=== PATIENT | male | born 1970 ===

== ENCOUNTER 2020-06-15 07:03 | Outpatient (REF) | payer OTHER, SELFPAY | END 2020-06-15 07:04 | disposition home or self-care (01) | LOC: HO.LAB 07:03 | PROVIDERS: Visit Provider Internal Medicine | DX: Z20.828 Contact with and (suspected) exposure to other viral communicable diseases (principal) | CPT/HCPCS: C9803; U0003 ==

== ENCOUNTER 2020-09-29 15:31 | Outpatient (REF) | payer OTHER, SELFPAY | END 2020-09-29 15:32 | disposition home or self-care (01) | LOC: HO.LAB 15:31 | PROVIDERS: Visit Provider Internal Medicine | DX: Z20.822 Contact with and (suspected) exposure to COVID-19 (principal) | CPT/HCPCS: 36415; C9803; U0003; U0005 ==

== ENCOUNTER 2020-11-01 15:24 | Outpatient (REF) | payer OTHER, SELFPAY ==
--- NOTE | ~2020-11-01 | XR_ITS ---
EXAMINATION: XR SHOULDER , LEFT CLINICAL INFORMATION: Pain COMPARISON: None available at the time of this dictation. TECHNIQUE: AP external rotation, Grashey, scapular Y, and axillary views of the shoulder. FINDINGS: BONES: There is no fracture or dislocation, no osteolytic or osteoblastic lesion. JOINTS: Glenohumeral joint is properly positioned. There is mild degenerative osteoarthritis of the acromioclavicular joint. SOFT TISSUE AND INCLUDED LUNG: Normal. XR/XR shoulder LT min 2V IMPRESSION: Mild degenerative osteoarthritis. No radiographic evidence of acute fracture.
== END 2020-11-01 15:25 | disposition home or self-care (01) ==
LOC: HO.HOSX 15:24
PROVIDERS: Visit Provider Orthopaedic Surgery
DX: M25.512 Pain in left shoulder (principal)
CPT/HCPCS: 73030

== ENCOUNTER → 2020-11-02 09:50 | Outpatient (BNVA) | payer OTHER, SELFPAY | PROVIDERS: PCP Internal Medicine Medical Oncology; Visit Provider Orthopaedic Surgery | DX: M25.519 Pain in unspecified shoulder (principal) ==

== ENCOUNTER 2020-12-15 06:58 | Outpatient (REF) | payer OTHER, SELFPAY ==
[2020-12-15 08:56] LABS: Glucose Fasting 96 mg/dL (60-99)
[2020-12-15 09:36] LABS: Vitamin B12 413 pg/mL (200-900)
[2020-12-15 09:43] LABS: Erythrocyte Sedimentation Rate 7 MM/HR (0-15)
[2020-12-16 05:26] LABS: Lyme Abs Screen <0.90 index
[2020-12-16 08:20] LABS: Syphilis Screen Nonreactive (Nonreactive)
[2020-12-16 09:46] LABS: Myeloperoxidase Antibody <1.0 AI; Proteinase 3 PR3 Antibodies <1.0 AI
[2020-12-16 13:56] LABS: Anti Nuclear Antibody Screen NEGATIVE (NEGATIVE); Ceruloplasmin 25 mg/dL (18-36)
== END 2020-12-15 06:59 | disposition home or self-care (01) ==
LOC: HO.LAB 06:58
PROVIDERS: PCP Internal Medicine Medical Oncology; Visit Provider Psychiatry & Neurology Neurology
DX: R20.0 Anesthesia of skin (principal); R53.1 Weakness
CPT/HCPCS: 36415; 82390; 82607; 82947; 85652; 86021; 86038; 86039; 86617; 86618; 86780

== ENCOUNTER 2020-12-26 15:31 | Emergency (ER) | payer OTHER, SELFPAY ==
--- NOTE | ~2020-12-26 | XR_ITS ---
EXAMINATION: XR ANKLE, RIGHT CLINICAL INFORMATION: Pain COMPARISON: None TECHNIQUE: AP, lateral, and mortise views of the right ankle. FINDINGS: There is an avulsion fracture of the lateral malleolus. No other fracture is seen. The ankle mortise is normal. There is lateral soft tissue swelling. XR/XR ankle RT 2V IMPRESSION: Avulsion fracture of the lateral malleolus.
[2020-12-26 16:07] VITALS: BP 166/103; PULSE 106; RESP 16; TEMP 35.7; O2SAT 87; BMI 32.5
--- NOTE | 2020-12-26 17:37 | ED.LOWEXIN ---
HPI - Extremity Injury (Lower) General Chief Complaint: Extremity Injury, Lower <CAROLYN Chilel - Last Filed: 01/03/21 15:02> Stated Complaint: r foot injury <CAROLYN Chilel - Last Filed: 01/03/21 15:02> Time Seen by Provider: 12/26/20 17:18 <CAROLYN Chilel Last Filed: 01/03/21 15:02> History of Present Illness HPI Narrative: Patient complains of right foot and right ankle pain after twisting injury several days ago, no numbness weakness or tingling, no other injury <CAROLYN Chilel - Last Filed: 01/03/21 15:02> Related Data Home Medications: Home Medications Medication Instructions Recorded Confirmed amitriptyline 10 mg tablet 10 mg PO DAILY 11/02/20 amlodipine 2.5 mg tablet 2.5 mg PO DAILY 11/02/20 <CAROLYN Chilel - Last Filed: 01/03/21 15:02> Allergies/Adverse Reactions: Allergies Allergy/AdvReac Type Severity Reaction Status Date / Time clonazepam [CLONAZEPAM] Allergy Unknown UNKNOWN Verified 11/02/20 09:58 duloxetine [From CYMBALTA] Allergy Unknown UNKNOWN Verified 11/02/20 09:58 gabapentin [From NEURONTIN] Allergy Unknown UNKNOWN Verified 11/02/20 09:58 ibuprofen [IBUPROFEN] Allergy Unknown UNKNOWN, Verified 11/02/20 09:58 SOB, oral lesions indomethacin [INDOMETHACIN] Allergy Unknown NAUSEA/VOMITING, Verified 11/02/20 09:58 chest pain naproxen Allergy Unknown SOB, oral Verified 11/02/20 09:58 lesions shellfish derived Allergy Unknown UNKNOWN Verified 11/02/20 09:58 [SHELLFISH DERIVED] shellfish Allergy Unknown vomiting Uncoded 11/08/17 00:00 <CAROLYN Chilel - Last Filed: 01/03/21 15:02> Review of Systems Review of Systems: Positive for right ankle pain and swelling Negatives are no fever no chills no dizziness or weakness no headache no neck pain no back pain no numbness weakness or tingling no other injury <CAROLYN Chilel Last Filed: 01/03/21 15:02> Yes all other systems are reviewed and are negative <CAROLYN Chilel Last Filed: 01/03/21 15:02> PMFSH Past Medical History Source: nursing notes reviewed <CAROLYN Chilel - Last Filed: 01/03/21 15:02> Medical History: Medical History (Updated 12/27/20 @ 00:01 by Arlen Stewart) FH: cholecystectomy High blood pressure Migraine <CAROLYN Chilel - Last Filed: 01/03/21 15:02> Surgical History: Surgical History (Updated 11/02/20 @ 10:39 by Radha Livingston) History of appendectomy <CAROLYN Chilel - Last Filed: 01/03/21 15:02> Social History Social History: Social History (Updated 11/02/20 @ 10:39 by Radha Livingston) Advance Directives: No Advance Directives Information Provided: Yes Current occupational status: employed 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 <CAROLYN Chilel - Last Filed: 01/03/21 15:02> Physical Exam Vital Signs: Vital Signs: Last Vital Signs Temp 98.5 F 12/26/20 17:42 Pulse 94 12/26/20 17:42 Resp 16 12/26/20 17:42 BP 152/96 H 12/26/20 17:42 Pulse Ox 97 12/26/20 17:42 Body Mass Index 32.5 <CAROLYN Chilel - Last Filed: 01/03/21 15:02> Vital Signs: Last Vital Signs Temp 98.5 F 12/26/20 17:42 Pulse 94 12/26/20 17:42 Resp 16 12/26/20 17:42 BP 152/96 H 12/26/20 17:42 Pulse Ox 97 12/26/20 17:42 Body Mass Index 32.5 <Fawad Kelly MD - Last Filed: 02/07/21 18:11> General appearance is no acute distress Head is normocephalic atraumatic Neck is supple Respiratory no distress Back is full range of motion Skin no rashes Extremities the right ankle has tenderness pain and swelling around lateral malleolus, neurovascular intact distal Other extremities normal <CAROLYN Chilel - Last Filed: 01/03/21 15:02> Course Course Course Narrative: X-ray showed a small lateral bone avulsion and soft tissue swelling Patient is given crutches and follow-up with orthopedist <CAROLYN Chilel - Last Filed: 01/03/21 15:02> I have reviewed the chart <Fawad Kelly MD - Last Filed: 02/07/21 18:11> Discharge Plan Discharge Clinical Impression: Ankle sprain and strain <CAROLYN Chilel - Last Filed: 01/03/21 15:02> Patient Disposition: Home, Self-Care <CAROLYN Chilel - Last Filed: 01/03/21 15:02> Additional Instructions: You have a bad ankle sprain and a small bone avulsion which often happens when you sprain her ankle and the ligament pulls off a piece of bone You can bear weight as tolerated Follow with orthopedist Return any concerns <CAROLYN Chilel - Last Filed: 01/03/21 15:02> Referrals: Aure Ngo MD [Physician] - 2 days (Right ankle sprain with avulsion fracture) <CAROLYN Chilel - Last Filed: 01/03/21 15:02> Interventions: ED Discharge Assessment Last Done: 12/26/20 18:10 <CAROLYN Chilel - Last Filed: 01/03/21 15:02> Discharge Date/Time: 12/26/20 18:10 <CAROLYN Chilel - Last Filed: 01/03/21 15:02>
[2020-12-26 17:42] VITALS: BP 152/96; PULSE 94; RESP 16; TEMP 36.9; O2SAT 97
== END 2020-12-26 18:10 | disposition home or self-care (01) ==
PROVIDERS: Emergency Provider Emergency Medicine; PCP Internal Medicine Medical Oncology
DX: S93.401A Sprain of unspecified ligament of right ankle, initial encounter (principal); S96.911A Strain of unspecified muscle and tendon at ankle and foot level, right foot, initial encounter; W10.8XXA Fall (on) (from) other stairs and steps, initial encounter; Y93.89 Activity, other specified; Y92.018 Other place in single-family (private) house as the place of occurrence of the external cause; Y99.9 Unspecified external cause status
CPT/HCPCS: 73600; 99283; 99284

== ENCOUNTER 2021-03-31 06:06 | Outpatient (REF) | payer OTHER, SELFPAY ==
[2021-03-31 06:58] LABS: MANUAL DIFF FLAG NO
[2021-03-31 07:00] LABS: Basophils Percent Auto 0.8 % (0-2); Eosinophils Absolute Auto 0.1 X10*3/uL (0.0-0.4); Eosinophils Percent Auto 2.5 % (0-4); Hematocrit 42.2 % (42-52); Hemoglobin 14.9 g/dl (14.0-18.0); Imm Gran Abs Auto 0.02 X10*3/uL (0.00-0.03); Imm Gran Pct Auto 0.4 % (0.0-0.4); Lymphocytes Absolute Auto 1.4 X10*3/uL (1.2-4.9); Lymphocytes Percent Auto 27.3 % (20-40); Mean Corpuscular HGB Conc 35.3 g/dl (31.0-36.0); Mean Corpuscular Hemoglobin 31.3 pg (27.0-33.0); Mean Corpuscular Volume 88.7 fL (80-98); Mean Platelet Volume 10.8 fL (9.4-12.4); Monocytes Absolute Auto 0.6 X10*3/uL (0.1-1.2); Monocytes Percent Auto 11.6 % (2-11); Neutrophils Percent Auto 57.4 % (45-73); Platelet Count 224 X10*3/uL (160-400); Red Blood Count 4.76 X10*6/uL (4.60-5.80); White Blood Count 5.3 X10*3/uL (4.8-10.8)
[2021-03-31 07:29] LABS: Alanine Aminotransferase 26 U/L (0-40); Albumin Level 4.4 g/dL (3.5-5.0); Alkaline Phosphatase 113 U/L (39-117); Anion Gap 12 (12-20); Aspartate Amino Transferase 17 U/L (5-37); Bilirubin Total 0.3 mg/dL (0.0-1.0); Blood Urea Nitrogen 20 mg/dL (9-16); Calcium 9.5 mg/dL (8.4-10.2); Carbon Dioxide 27 mmol/L (22-29); Chloride 107 mmol/L (96-108); Cholesterol 190 mg/dL; Estimated Glomerular Filt Rate > 60; Glucose Random 122 mg/dL (60-115); HDL Cholesterol 36 mg/dL; LDL Cholesterol Calculated 125 mg/dl; Potassium 4.9 mmol/L (3.3-5.1); Sodium 141 mmol/L (135-145); Total Protein 7.1 g/dL (6.5-8.0); Triglycerides 149 mg/dL
== END 2021-03-31 06:07 | disposition home or self-care (01) ==
LOC: HO.LAB 06:06
PROVIDERS: PCP Internal Medicine Medical Oncology; Visit Provider Internal Medicine Medical Oncology
DX: I10 Essential (primary) hypertension (principal); R16.1 Splenomegaly, not elsewhere classified; E66.9 Obesity, unspecified; J45.909 Unspecified asthma, uncomplicated
CPT/HCPCS: 36415; 80053; 80061; 85025

== ENCOUNTER 2021-08-15 09:32 | Outpatient (REF) | payer OTHER, SELFPAY ==
--- NOTE | ~2021-08-15 | XR_ITS ---
EXAMINATION: XR CHEST CLINICAL INFORMATION: Bronchitis, chest discomfort COMPARISON: Chest radiographs 04/27/2020, 05/10/2017 TECHNIQUE: 2 views of the chest were obtained. FINDINGS: There is no hyperinflation, airspace consolidation, groundglass opacity, or effusion. The costophrenic sulci are clear. There are densities overlying the bilateral superior medial apices on frontal view corresponding to the bilateral first costochondral junctions similar to prior exams. The heart is normal in size. The hilar and mediastinal contours are unremarkable. No acute bony abnormality. XR/XR chest 2V IMPRESSION: Unremarkable examination.
== END 2021-08-15 09:33 | disposition home or self-care (01) ==
LOC: HO.XRAY 09:32
PROVIDERS: PCP Internal Medicine Medical Oncology; Visit Provider Internal Medicine Medical Oncology
DX: R07.89 Other chest pain (principal); J40 Bronchitis, not specified as acute or chronic
CPT/HCPCS: 71046

== ENCOUNTER 2021-08-17 07:05 | Emergency (ER) | payer OTHER, SELFPAY ==
--- NOTE | 2021-08-17 07:11 | ECG_ITS ---
Test Reason : chest pain Blood Pressure : / mmHG Vent. Rate : 097 BPM Atrial Rate : 097 BPM P-R Int : 136 ms QRS Dur : 086 ms QT Int : 356 ms P-R-T Axes : 019 042 005 degrees QTc Int : 452 ms Artifact in tracing Normal sinus rhythm Nonspecific T wave abnormality Borderline ECG When compared with ECG of 27-APR-2020 11:40, No significant change was found Referred By: Generic ED Physician Electronically Signed By:CHALO JENKINS
[2021-08-17 07:36] VITALS: BP 147/94; PULSE 101; RESP 16; TEMP 36.6; O2SAT 99; BMI 32.5
[2021-08-17 08:02] LABS: COVID-19 Test Negative (Negative)
[2021-08-17 09:34] LABS: MANUAL DIFF FLAG NO
[2021-08-17 09:36] LABS: Basophils Percent Auto 0.6 % (0-2); Eosinophils Absolute Auto 0.1 X10*3/uL (0.0-0.4); Eosinophils Percent Auto 1.7 % (0-4); Hematocrit 43.2 % (42.0-52.0); Hemoglobin 15.7 g/dl (14.0-18.0); Imm Gran Abs Auto 0.02 X10*3/uL (0.00-0.03); Imm Gran Pct Auto 0.4 % (0.0-0.4); Lymphocytes Absolute Auto 1.4 X10*3/uL (1.2-4.9); Lymphocytes Percent Auto 25.7 % (20-40); Mean Corpuscular HGB Conc 36.3 g/dl (31.0-36.0); Mean Corpuscular Hemoglobin 31.8 pg (27.0-33.0); Mean Corpuscular Volume 87.6 fL (80.0-98.0); Mean Platelet Volume 10.7 fL (9.4-12.4); Monocytes Absolute Auto 0.4 X10*3/uL (0.1-1.2); Monocytes Percent Auto 8.2 % (2-11); Neutrophils Absolute Auto 3.4 x10*3/uL (2.0-8.3); Neutrophils Percent Auto 63.4 % (45-73); Platelet Count 212 X10*3/uL (160-400); Red Blood Count 4.93 X10*6/uL (4.60-5.80); Red Cell Distribution Width 11.9 % (11.0-16.0); White Blood Count 5.4 X10*3/uL (4.8-10.8)
[2021-08-17 10:05] LABS: B Type Natriuretic Peptide < 10 pg/mL (<100); Troponin-I High Sensitivity < 3.5 ng/L (<3.5-35.0)
[2021-08-17 10:09] LABS: Alanine Aminotransferase 21 U/L (0-40); Albumin Level 4.1 g/dL (3.5-5.0); Alkaline Phosphatase 87 U/L (39-117); Anion Gap 11 (12-20); Aspartate Amino Transferase 12 U/L (5-37); Bilirubin Direct 0.2 mg/dL (0.0-0.5); Bilirubin Total 0.4 mg/dL (0.0-1.0); Blood Urea Nitrogen 14 mg/dL (9-16); Calcium 9.4 mg/dL (8.4-10.2); Carbon Dioxide 26 mmol/L (22-29); Chloride 107 mmol/L (96-108); Creatinine Clr Calc Pharmacy 85.9; Estimated Glomerular Filt Rate > 60; Glucose Random 108 mg/dL (60-115); Magnesium 2.4 mg/dL (1.6-2.6); Potassium 5.1 mmol/L (3.3-5.1); Sodium 139 mmol/L (135-145); Total Protein 6.9 g/dL (6.5-8.0)
--- NOTE | 2021-08-17 11:06 | ED.SOB ---
HPI - SOB/Dyspnea General Chief Complaint: Dyspnea Stated Complaint: SOB CHEST PAIN Time Seen by Provider: 08/17/21 08:05 Source: patient Mode of arrival: ambulatory History of Present Illness HPI Narrative: 50-year-old male with a past medical history of migraine, HTN, s/p appendectomy, cholecystectomy, presenting to the ED complaining of exertional dyspnea and intermittent chest tightness x1 week. Reports had outpatient CXR with PCP 2 days ago that was unremarkable. Denies fever, chills, cough, abdominal pain, nausea/vomiting, pedal edema, recent travel, history of blood clots Prior cigarette smoker, Quit 26 years ago MD elicited complaint: shortness of breath and chest pain Onset (ago): day(s) Related Data Home Medications Medication Instructions Recorded Confirmed amitriptyline 10 mg tablet 10 mg PO DAILY 11/02/20 amlodipine 2.5 mg tablet 2.5 mg PO DAILY 11/02/20 Allergies Allergy/AdvReac Type Severity Reaction Status Date / Time clonazepam [CLONAZEPAM] Allergy Unknown UNKNOWN Verified 11/02/20 09:58 duloxetine [From CYMBALTA] Allergy Unknown UNKNOWN Verified 11/02/20 09:58 gabapentin [From NEURONTIN] Allergy Unknown UNKNOWN Verified 11/02/20 09:58 ibuprofen [IBUPROFEN] Allergy Unknown UNKNOWN, Verified 11/02/20 09:58 SOB, oral lesions indomethacin [INDOMETHACIN] Allergy Unknown NAUSEA/VOMITING, Verified 11/02/20 09:58 chest pain naproxen Allergy Unknown SOB, oral Verified 11/02/20 09:58 lesions shellfish derived Allergy Unknown UNKNOWN Verified 11/02/20 09:58 [SHELLFISH DERIVED] shellfish Allergy Unknown vomiting Uncoded 11/08/17 00:00 Review of Systems Review of Systems: Constitutional: No Fever, No Chills,No Fatigue, No Malaise ENT/Mouth: No Ear Pain, No Nasal Congestion, No sore throat, No Rhinorrhea, No Swallowing Difficulty Eyes: No Eye Pain, No Swelling, No Redness Cardiovascular: + Chest tightness, No SOB, + Dyspnea on Exertion, No Orthopnea, No Edema, No Palpitations Respiratory: No Cough, No Sputum Gastrointestinal: No Nausea, No Vomiting, No Diarrhea, No Constipation, No Abdominal pain Genitourinary: No Dysuria, No Urinary Incontinence, No Flank Pain Musculoskeletal: No joint pain, No Myalgias, No Joint Swelling Skin: No Skin Lesions, No rash Neuro: No Weakness, No Numbness, No Paresthesias, No Dizziness, No Headache Yes all other systems are reviewed and are negative [facility] Past Medical History Attestation statement: The following information was validated with the patient. 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 Physical Exam Vital Signs: Vital Signs: Last Vital Signs Temp 97.9 F 08/17/21 07:36 Pulse 101 H 08/17/21 07:36 Resp 16 08/17/21 07:36 BP 147/94 H 08/17/21 07:36 Pulse Ox 99 08/17/21 07:36 BMI result Body Mass Index 32.5 Const: General: cooperative, healthy appearing and no acute distress Orientation/consciousness: patient oriented x3 Limitations: no limitations HENMT: Head: Yes normal to inspection Ears: hearing grossly normal bilaterally General nose exam: Normal external nose present Face and sinus: Yes normal facial exam Eyes: General: appearance normal, both eyes and all related structures EOM: EOMs intact bilaterally Neck: Neck: Yes normal visual inspection and Yes no meningeal signs Resp: Effort & Inspection: normal respiratory effort and no respiratory distress Auscultation: clear to auscultation bilaterally, no rales, no rhonchi and no wheezes Cardio: Rate: regular rate and tachycardic (101) Heart sounds: S1 normal heart sound present and S2 normal heart sound present GI: Inspection: Yes normal to inspection Palpation (GI): Soft to palpation, nontender, no guarding and not rigid Skin: Rashes: no rashes Wounds: no wounds Neuro: General: patient oriented x3 and no meningeal signs Gait exam (Neuro): Normal gait present Extrem: General: Yes normal to inspection, Yes no pedal edema and Yes no calf tenderness Course Course Course Narrative: -1106--no leukocytosis. H&H stable. Labs otherwise unremarkable. Troponin negative, BNP WNL -COVID-19 negative XR chest 2V IMPRESSION: Unremarkable examination. -patient maintained saturation's greater than 97-98% on RA upon exertion > but HR jumped to 108. Will obtain D-dimer -1229--D-dimer negative >> results discussed with patient including worrisome signs and symptoms and strict return precautions as needed close follow-up with Cardiology/PCP. Patient verbalized understanding feels safe for discharge home at this time MDM - SOB/Dyspnea MDM Narrative Medical decision making narrative: 50-year-old male with a past medical history of migraine, HTN, s/p appendectomy, cholecystectomy, presenting to the ED complaining of exertional dyspnea and intermittent chest tightness x1 week. On exam mildly tachycardic at 101, NAD, nontoxic appearing, lungs CTA, no pedal edema/calf tenderness. Concern for viral syndrome/COVID-19 vs ?CHF vs PNA. R/o ACS. Cannot PERC out due to tachycardia Plan: EKG, labs, ambulation with pulse ox CXR from 08/15 unremarkable Differential Diagnosis Differential diagnosis: Likely congestive heart failure, pneumonia and pulmonary embolism Medical Records Attestation: I reviewed the patient's medical records. Lab Data Attestation: I reviewed the patient's lab results. Result diagrams: 08/17/21 09:18 08/17/21 09:18 Labs: Lab Results 08/17/21 08/17/21 08/17/21 Range/Units 07:39 09:18 09:18 WBC 5.4 (4.8-10.8) X10*3/uL RBC 4.93 (4.60-5.80) X10*6/uL Hgb 15.7 (14.0-18.0) g/dl Hct 43.2 (42.0-52.0) % MCV 87.6 (80.0-98.0) fL MCH 31.8 (27.0-33.0) pg MCHC 36.3 H (31.0-36.0) g/dl RDW 11.9 (11.0-16.0) % Plt Count 212 (160-400) X10*3/uL MPV 10.7 (9.4-12.4) fL Immature Gran % (Auto) 0.4 (0.0-0.4) % Neut % (Auto) 63.4 (45-73) % Lymph % (Auto) 25.7 (20-40) % [place] % (Auto) 8.2 (2-11) % Eos % (Auto) 1.7 (0-4) % Baso % (Auto) 0.6 (0-2) % Lymph # (Auto) 1.4 (1.2-4.9) X10*3/uL [place] # (Auto) 0.4 (0.1-1.2) X10*3/uL Eos # (Auto) 0.1 (0.0-0.4) X10*3/uL Baso # (Auto) 0.0 (0.0-0.2) X10*3/uL Abs Immat Gran (auto) 0.02 (0.00-0.03) X10*3/uL Absolute Neuts (auto) 3.4 (2.0-8.3) x10*3/uL Absolute Nucleated RBC 0.000 (0.0-0.012) X10*3/uL Nucleated RBC % (auto) 0.0 (0.0-0.2) /100WBC D-Dimer High Sensitivty NG/ML Sodium 139 (135-145) mmol/L Potassium 5.1 (3.3-5.1) mmol/L Chloride 107 (96-108) mmol/L Carbon Dioxide 26 (22-29) mmol/L Anion Gap 11 L (12-20) BUN 14 (9-16) mg/dL Creatinine 1.04 (0.5-1.4) mg/dL Estim Creat Clear Calc 85.9 Estimated GFR > 60 Random Glucose 108 (60-115) mg/dL Calcium 9.4 (8.4-10.2) mg/dL Magnesium 2.4 (1.6-2.6) mg/dL Total Bilirubin 0.4 (0.0-1.0) mg/dL Direct Bilirubin 0.2 (0.0-0.5) mg/dL AST 12 (5-37) U/L ALT 21 (0-40) U/L Alkaline Phosphatase 87 D (39-117) U/L Troponin I High Sens (<3.5-35.0) ng/L B-Natriuretic Peptide (<100) pg/mL Total Protein 6.9 (6.5-8.0) g/dL Albumin 4.1 (3.5-5.0) g/dL COVID-19 (ROSALINDA) Negative (Negative) COVID-19 Clin Com See Note 08/17/21 08/17/21 Range/Units 09:18 11:46 WBC (4.8-10.8) X10*3/uL RBC (4.60-5.80) X10*6/uL Hgb (14.0-18.0) g/dl Hct (42.0-52.0) % MCV (80.0-98.0) fL MCH (27.0-33.0) pg MCHC (31.0-36.0) g/dl RDW (11.0-16.0) % Plt Count (160-400) X10*3/uL MPV (9.4-12.4) fL Immature Gran % (Auto) (0.0-0.4) % Neut % (Auto) (45-73) % Lymph % (Auto) (20-40) % [place] % (Auto) (2-11) % Eos % (Auto) (0-4) % Baso % (Auto) (0-2) % Lymph # (Auto) (1.2-4.9) X10*3/uL [place] # (Auto) (0.1-1.2) X10*3/uL Eos # (Auto) (0.0-0.4) X10*3/uL Baso # (Auto) (0.0-0.2) X10*3/uL Abs Immat Gran (auto) (0.00-0.03) X10*3/uL Absolute Neuts (auto) (2.0-8.3) x10*3/uL Absolute Nucleated RBC (0.0-0.012) X10*3/uL Nucleated RBC % (auto) (0.0-0.2) /100WBC D-Dimer High Sensitivty < 150 NG/ML Sodium (135-145) mmol/L Potassium (3.3-5.1) mmol/L Chloride (96-108) mmol/L Carbon Dioxide (22-29) mmol/L Anion Gap (12-20) BUN (9-16) mg/dL Creatinine (0.5-1.4) mg/dL Estim Creat Clear Calc Estimated GFR Random Glucose (60-115) mg/dL Calcium (8.4-10.2) mg/dL Magnesium (1.6-2.6) mg/dL Total Bilirubin (0.0-1.0) mg/dL Direct Bilirubin (0.0-0.5) mg/dL AST (5-37) U/L ALT (0-40) U/L Alkaline Phosphatase (39-117) U/L Troponin I High Sens < 3.5 (<3.5-35.0) ng/L B-Natriuretic Peptide < 10 (<100) pg/mL Total Protein (6.5-8.0) g/dL Albumin (3.5-5.0) g/dL COVID-19 (ROSALINDA) (Negative) COVID-19 Clin Com ECG Data Attestation: I personally reviewed and interpreted this ECG as follows: ECG interpretation date: 08/17/21 ECG interpretation time: 07:29 Interpretation: EKG normal sinus rhythm at a rate of 97. Pr interval 136. QTC 452. Artifact present. ST changes in lead 3. No STEMI Discharge Plan Discharge Clinical Impression: Chest tightness, Exertional dyspnea Patient Disposition: Home, Self-Care Instructions: Chest Pain (ED), Dyspnea (ED) Additional Instructions: Your blood work was reassuring today in the emergency department. Please follow-up with Cardiology. If her symptoms persist or worsen, constant worsening chest pain, shortness of breath, develops fever, or swelling in her legs please return to the emergency department Referrals: Rosalio Sandoval MD [Physician] - 5 days Stand Alone Forms: Work/School Release
[2021-08-17 12:26] LABS: D Dimer High Sensitivity < 150 NG/ML
== END 2021-08-17 12:45 | disposition home or self-care (01) ==
PROVIDERS: Physician Assistant; Emergency Provider Emergency Medicine; PCP Internal Medicine Medical Oncology
DX: R07.89 Other chest pain (principal); R06.02 Shortness of breath; Z20.822 Contact with and (suspected) exposure to COVID-19; I10 Essential (primary) hypertension
CPT/HCPCS: 36415; 80048; 80076; 83735; 83880; 84484; 85025; 85379; 87635; 93005; 99282; 99283

== ENCOUNTER → 2021-08-21 08:41 | Outpatient (BNVA) | payer OTHER, SELFPAY | PROVIDERS: PCP Internal Medicine Medical Oncology; Visit Provider Internal Medicine Cardiovascular Disease | DX: R07.9 Chest pain, unspecified (principal); I10 Essential (primary) hypertension | CPT/HCPCS: 93005 ==

== ENCOUNTER → 2021-08-22 09:05 | Outpatient (REF) | payer OTHER, SELFPAY ==
--- NOTE | ~2021-08-22 | NM_ITS ---
EXERCISE MYOCARDIAL PERFUSION STUDY INDICATION: Chest pain, assess for coronary disease and ischemia TECHNIQUE: The patient was brought in for an exercise perfusion study on 08/22/2021. Patient performed exercise as per Santos protocol and was injected 30 mCi of sestamibi once target heart rate was achieved. Images were obtained using the SPECT gamma camera interlaced with the gating device. Images were obtained in supine position. Resting perfusion study was performed on 08/23/2021. Patient was administered 30 mCi of sestamibi intravenously at rest. Images were then obtained in supine position. Total DLP 95mGy-cm. Images were processed with the software and compared side to side in short axis, horizontal long axis and vertical long axis views. FINDINGS: Raw images were reviewed. The stress perfusion study showed mildly diminished tracer uptake along the basal inferior wall. There is improvement with CT attenuation correction suggesting diaphragmatic attenuation artifact. The gated study shows normal LV systolic function with calculated LVEF of 60%. LV cavity is normal in size. The gated study shows normal wall thickening and contraction of segments. Resting study shows diminished tracer uptake along the inferior wall. Improvement with CT attenuation correction suggesting diaphragmatic attenuation artifact. Gating at rest reveals normal wall motion with ejection fraction at 58%. The findings are consistent with no definite reversible or fixed perfusion defects. NM/NM cardiolite stress test IMPRESSION: 1. Myocardial perfusion imaging study shows normal myocardial perfusion. 2. Gated LVEF is 60% during stress and 58% during rest. 3. Transient ischemic dilatation not present. EKG component of the test reported separately.
--- NOTE | 2021-08-22 09:12 | CA_ITS ---
Acquisition Time: 2021-08-22 10:58:57 Total Exercise Time: 00:09:35 Test Indications: Chest Pain Medications: Protocol: NILDA Max HR: 151 BPM 87% of Pred: 172 BPM Max BP: 176/090 mmHG Max Work Load: 11.0 METS Exercise stress test with exercise 9 min 35 sec of Nilda protocol, with report of 3/10 left chest pressure at baseline that increased to 4/10 with exercise, without arrythmia, with normotensive response to exercise, without EKG changes meeting criteria for ischemia, with nonspecific ST/ T wave abnormalties noted. In recovery his chest pressure returned to a 3/10. Nuclear images pending. Test reviewed with Dr Rosenthal. Referred By: Danile Pollack Overread By: RALF SHANKAR
--- NOTE | 2021-08-22 09:12 | CA_ITS ---
Transthoracic Echocardiogram Patient (Last, First, Middle): Vicente Lindsay, Gender: Male Date of : 1970 Age: 50 Procedure Date: 08/22/2021 Procedure Type: Transthoracic Echocardiogram Location: OP Height: 162.56 cm Weight: 86.18 kg BSA: 1.91 m2 Heart Rate: bpm BP: 130 / 84 mmHg Glass Sander: SHELBY Referring MD: Daniel Pollack MD Symptoms: R07.9 - Chest pain, unspecified Study Quality: Fair ECG Rhythm: Sinus Conclusions: - The left ventricular systolic function is normal. The calculated ejection fraction is 59% by biplane method. - No obvious valvular pathology seen on this study. Findings Left Ventricle Normal left ventricular cavity size. There is mildly increased left ventricular wall thickness. The left ventricular systolic function is normal. The calculated ejection fraction is 59% by biplane method. There is no evidence of regional wall motion abnormalities. Diastolic function is normal for age. Right Ventricle Normal right ventricular cavity size and systolic function. Atria Both atria are normal in size. Aortic Valve There is a normal trileaflet aortic valve. There is mild calcification of the aortic valve. There is no aortic valve stenosis. There is no aortic valve regurgitation. Mitral Valve The mitral valve appears normal. There is trace mitral valve regurgitation. There is no mitral valve stenosis. Pulmonic Valve The pulmonic valve was not well visualized. Tricuspid Valve There is trace tricuspid valve regurgitation. The pulmonary artery systolic pressure is normal. Great Vessels The aortic annulus, sinuses of valsalva, asc aorta, and aortic arch are normal in size. Venous The inferior vena cava is normal in size and collapses greater than 50% with inspiration. Pericardium/Pleural There is no evidence of pericardial effusion. Prior Study Comparison No significant change compared to prior study dated: 09/11/2017. Recommendations, Care & Conclusions No obvious valvular pathology seen on this study. Measurements 2D Linear Measurements IVSd: 1.03 0.6-0.9/0.6-1.0 cm LVIDd: 4.85 3.9-5.3/4.2-5.9 cm LVIDd Index: 2.54 2.4-3.2/2.2-3.1 cm/m2 LVIDs: 3.15 2.0-3.6 cm LVPWd: 1.03 0.7-1.1 cm Ao Root: 3.10 2.1-3.5 cm LA Diam: 3.50 2.7-3.8/3.0-4.0 cm LAIDs Index: 1.83 1.5-2.3 cm/m2 LV Mass: 224.49 67-162/88-224 g LV Mass Index: 117.53 43-95/49-115 g/m2 LVOT Diam: 2.30 3.0+(-)1.3 cm 2D Systolic Function EF 4C: 59.50 >55% EF 2C: 56.50 >55% EF BiP: 58.80 >55% Mitral Valve MV Pk E: 0.48 MV PK A: 0.49 MV Decel Time: 120.00 E/A: 1.00 E'Lateral: 8.70 E'Medial: 5.44 E/E' Med: 8.80 E/E' Lat: 5.50 PHT: 35.00 MVA PHT: 6.29 Decel [place]: 3.99 Aortic Valve AoV Pk [place]: 1.14 AoV Pk Grad: 5.00 LVOT LVOT Pk [place]: 0.78 LVOT Mn [place]: 0.48 LVOT VTI: 0.13 LVOT Pk Grad: 2.00 LVOT Mn Grad: 1.00 LVOT Diam: 2.30 LVOT Area: 4.15 Diastolic Function MV Pk E: 0.48 MV Pk A: 0.49 E/A: 1.00 E'Medial: 5.44 E/E' Med: 8.80 E' Laterial: 8.70 E/E' Lat: 5.50 Right Ventricle TAPSE (mm): 1.80 TVS' [place]: 1.20 Tricuspid Valve TR Pk [place]: 2.39 TR Pk Grad: 23.00 RA Press: 3.00 RVSP: 26.00 Great Vessels Aorta Ao Root-2D: 3.10 2.0-3.7 cm Ao Asc: 3.00 2.1-3.4 cm Ao Arch: 2.60 Updated in Other Vendor System with Status of Final Rosalio Sandoval MD electronically signed on 08/22/2021 1:17:20 PM with status of Final
== END ==
LOC: HO.CARD 09:05
PROVIDERS: PCP Internal Medicine Medical Oncology; Visit Provider Internal Medicine Cardiovascular Disease
DX: R07.9 Chest pain, unspecified (principal); I10 Essential (primary) hypertension; R06.00 Dyspnea, unspecified
CPT/HCPCS: 78452; 93017; 93306; A9500; A9503

== ENCOUNTER → 2021-09-21 13:24 | Outpatient (BNVA) | payer OTHER, SELFPAY | PROVIDERS: PCP Internal Medicine Medical Oncology; Visit Provider Internal Medicine Cardiovascular Disease ==

== ENCOUNTER → 2022-09-25 13:21 | Outpatient (BNVA) | payer OTHER, SELFPAY | PROVIDERS: PCP Internal Medicine Medical Oncology; Referring Provider Internal Medicine Medical Oncology; Visit Provider Internal Medicine Cardiovascular Disease | DX: I11.9 Hypertensive heart disease without heart failure (principal) | CPT/HCPCS: 93005 ==

== ENCOUNTER 2023-04-14 18:29 | Emergency (ER) | payer OTHER, SELFPAY ==
--- NOTE | ~2023-04-14 | XR_ITS ---
EXAMINATION: XR SHOULDER, LEFT CLINICAL INFORMATION: Shoulder injury COMPARISON: None available. TECHNIQUE: AP external rotation, Grashey, scapular Y, and axillary views of the left shoulder. FINDINGS: Humeral head is well-seated in the glenoid fossa. Mild degenerative changes with marginal osteophytosis seen. Hypertrophic degenerative changes in the acromioclavicular joint. I do not appreciate any superimposed acute fracture or dislocation. Visualized left upper chest and ribs grossly unremarkable. XR/XR shoulder LT min 2V IMPRESSION: Mild degenerative changes but no acute fracture or dislocation.
[2023-04-14 18:44] VITALS: BP 179/113; PULSE 103; RESP 18; TEMP 37; O2SAT 96; BMI 34.3
--- NOTE | 2023-04-14 19:03 | ED_ITS ---
HPI - Extremity Problem General Chief complaint: Extremity Injury, Upper Stated complaint: broken shoulder ? Time Seen by Provider: 04/14/23 19:03 Source: patient Mode of arrival: ambulatory Limitations: no limitations History of Present Illness HPI Narrative: 52 yo male presenting to the ER for evaluation of Acute onset of left shoulder pain that started at 05:30 today after he picked up a soda can in his living room. He states he has chronic left shoulder pains and sees an orthopedist for this, recently got a steroid injection over the summer. He states since 01/01 he had sudden onset of sharp shooting pain in the left shoulder, right in the joint itself. The pain is causing him significantly limited range of motion is. It is best held and adduction and flexion. He denies any radiation of the pain into the chest or hand. No fall or other trauma. No swelling of the shoulder. He took Aleve before he came in with minimal improvement. Complaint: joint pain Onset (ago): hour(s) Pain Consistency: constant Location: left and upper extremity Quality: stabbing and sharp Radiation: distal Relieving factors: rest Exacerbating factors: range of motion Associated symptoms: denies other symptoms Related Data Home Medications Medication Instructions Recorded Confirmed No Known Home Meds 09/25/22 09/25/22 Allergies Allergy/AdvReac Type Severity Reaction Status Date / Time clonazepam [CLONAZEPAM] Allergy Unknown UNKNOWN Verified 04/14/23 18:48 duloxetine [From CYMBALTA] Allergy Unknown UNKNOWN Verified 04/14/23 18:48 gabapentin [From NEURONTIN] Allergy Unknown UNKNOWN Verified 04/14/23 18:48 ibuprofen [IBUPROFEN] Allergy Unknown UNKNOWN, Verified 04/14/23 18:48 SOB, oral lesions indomethacin [INDOMETHACIN] Allergy Unknown NAUSEA/VOMITING, Verified 04/14/23 18:48 chest pain naproxen Allergy Unknown SOB, oral Verified 04/14/23 18:48 lesions shellfish derived Allergy Unknown UNKNOWN Verified 04/14/23 18:48 [SHELLFISH DERIVED] shellfish Allergy Unknown vomiting Uncoded 11/08/17 00:00 Review of Systems Review of Systems: Yes all other systems are reviewed and are negative PMFSH Past Medical History Medical History FH: cholecystectomy HTN (hypertension) Migraine Surgical History History of appendectomy Social History Social History Advance Directives: No Advance Directives Information Provided: No Current occupational status: employed 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 Oriented X3. No acute distress. HEENT: normal inspection CVS: Normal heart rate and rhythm. Pulses normal. Respiratory: No respiratory distress. Skin: Skin warm and dry. Normal skin color. Normal skin turgor. No rashes. Extremities: Normal inspection of bilateral shoulders. There is diffuse an terior and lateral tenderness of the shoulder joint. He can passively range the shoulder to about 90 degrees anteriorly and laterally, active range of motion is quite limited. Equal residential care facility manager strength bilaterally. Normal range of motion of the elbow. Positive empty can test. Neuro: Oriented X 3. No motor deficit. No sensory deficit. Medical Decision Making Medical Decision Making MDM Narrative: 52-year-old folzo-wefa-zirhrndv male presents the ER for evaluation of acute onset of left shoulder pain with limited range of motion at 05:30 after picking up a soda can. No other trauma or injury. He has significant limited range of motion on examination and weakness of the shoulder. X-rays reviewed, no acute fracture dislocation, he has mild osteoarthritis. Will place an sling for comfort, discharged with NSAIDs for pain control. He will follow-up with his orthopedist for further evaluation and treatment this week. Differential Diagnosis Differential Diagnoses: The differential diagnosis associated with the presentat ion includes Shoulder sprain, shoulder strain, rotator cuff injury, bursitis, osteoarthritis, nerve impingement Independent Interpretation I performed an independent interpretation of an: Plain X-Ray Interpretation: X-ray reviewed no acute fracture. Radiology Impression Discussion of test interpretation with radiology: I have reviewed the radiologist's reading. Radiologist Impression: EXAMINATION: XR SHOULDER, LEFT CLINICAL INFORMATION: Shoulder injury COMPARISON: None available. TECHNIQUE: AP external rotation, Grashey, scapular Y, and axillary views of the left shoulder. FINDINGS: Humeral head is well-seated in the glenoid fossa. Mild degenerative changes with marginal osteophytosis seen. Hypertrophic degenerative changes in the acromioclavicular joint. I do not appreciate any superimposed acute fracture or dislocation. Visualized left upper chest and ribs grossly unremarkable. XR/XR shoulder LT min 2V IMPRESSION: Mild degenerative changes but no acute fracture or dislocation. Critical Care Time Critical Care Time Critical Care Time: No Discharge Plan Discharge Clinical Impression: Acute shoulder pain Patient Disposition: Home, Self-Care Instructions: Shoulder Pain (ED) Additional Instructions: Your x-ray today showed mild degenerative changes but no acute fracture or dislocation. Recommend wearing the sling for the next 24-48 hours. After that slowly work on gentle range of motion of the left shoulder. Recommend anti-inflammatories and Tylenol as needed for pain. Rest the shoulder and use ice several times a day. Recommend following up with your orthopedist this week. If you develop new or worsening symptoms call 911 or come back to the ER for further evaluation. Prescriptions: No Action No Known Home Meds Stand Alone Forms: Work/School Release
[2023-04-14 19:25] VITALS: BP 163/111; PULSE 106; RESP 16; TEMP 36.8; O2SAT 98
[2023-04-14] MEDS: Acetaminophen 325 MG TABLET 975 MG PO (19:33)
== END 2023-04-14 19:50 | disposition home or self-care (01) ==
PROVIDERS: Emergency Provider Emergency Medicine Emergency Medical Services
DX: M25.512 Pain in left shoulder (principal); Z79.899 Other long term (current) drug therapy
CPT/HCPCS: 73030; 99283; 99284

== ENCOUNTER 2023-04-19 06:08 | Outpatient (REF) | payer OTHER, SELFPAY ==
[2023-04-19 06:32] LABS: MANUAL DIFF FLAG NO
[2023-04-19 08:11] LABS: Basophils Absolute Auto 0.1 X10*3/uL (0.0-0.2); Eosinophils Absolute Auto 0.2 X10*3/uL (0.0-0.4); Eosinophils Percent Auto 2.5 % (0-4); Hematocrit 41.6 % (42.0-52.0); Hemoglobin 14.9 g/dl (14.0-18.0); Imm Gran Abs Auto 0.05 X10*3/uL (0.00-0.03); Imm Gran Pct Auto 0.8 % (0.0-0.4); Lymphocytes Absolute Auto 1.5 X10*3/uL (1.2-4.9); Lymphocytes Percent Auto 25.6 % (20-40); Mean Corpuscular HGB Conc 35.8 g/dl (31.0-36.0); Mean Corpuscular Volume 89.3 fL (80.0-98.0); Mean Platelet Volume 10.8 fL (9.4-12.4); Monocytes Absolute Auto 0.7 X10*3/uL (0.1-1.2); Monocytes Percent Auto 11.4 % (2-11); Neutrophils Absolute Auto 3.5 x10*3/uL (2.0-8.3); Neutrophils Percent Auto 58.7 % (45-73); Platelet Count 216 X10*3/uL (160-400); Red Blood Count 4.66 X10*6/uL (4.60-5.80); Red Cell Distribution Width 12.2 % (11.0-16.0)
[2023-04-19 08:36] LABS: Alanine Aminotransferase 29 U/L (0-40); Albumin Level 4.2 g/dL (3.5-5.0); Alkaline Phosphatase 100 U/L (39-117); Anion Gap 14 (12-20); Aspartate Amino Transferase 26 U/L (5-37); Bilirubin Total 0.3 mg/dL (0.0-1.0); Blood Urea Nitrogen 13 mg/dL (9-16); Calcium 9.3 mg/dL (8.4-10.2); Carbon Dioxide 26 mmol/L (22-29); Chloride 105 mmol/L (96-108); Cholesterol 178 mg/dL (<200); Estimated Glomerular Filt Rate > 60; Glucose Fasting 123 mg/dL (60-99); HDL Cholesterol 32 mg/dL (>40); LDL Cholesterol Calculated 89 mg/dL (<100); Potassium 4.1 mmol/L (3.3-5.1); Sodium 141 mmol/L (135-145); Total Protein 6.8 g/dL (6.5-8.0); Triglycerides 285 mg/dL (<150)
== END 2023-04-19 06:09 | disposition home or self-care (01) ==
LOC: HO.LAB 06:08
PROVIDERS: PCP Internal Medicine Medical Oncology; Visit Provider Internal Medicine Medical Oncology
DX: Z00.00 Encounter for general adult medical examination without abnormal findings (principal); Z12.5 Encounter for screening for malignant neoplasm of prostate; N40.0 Benign prostatic hyperplasia without lower urinary tract symptoms; I10 Essential (primary) hypertension; E66.9 Obesity, unspecified
CPT/HCPCS: 36415; 80053; 80061; 84153; 85025

== ENCOUNTER 2023-05-29 06:11 | Outpatient (REF) | payer OTHER, SELFPAY ==
--- NOTE | ~2023-05-29 | XR_ITS ---
EXAMINATION: XR ORBITS CLINICAL INFORMATION: Foreign body eye. COMPARISON: None available. TECHNIQUE: 5 views of the orbits were obtained. FINDINGS: No radiopaque foreign body identified. No gross air-fluid in the maxillary sinuses. XR/XR orbit min 4V IMPRESSION: No radiopaque foreign body identified. Additional imaging with CT scan or MRI is strongly recommended as these studies are much more sensitive for evaluation of intracranial pathology.
== END 2023-05-29 06:12 | disposition home or self-care (01) ==
LOC: HO.XRAY 06:11
PROVIDERS: PCP Internal Medicine Medical Oncology; Visit Provider Internal Medicine Medical Oncology
DX: T15.90XA Foreign body on external eye, part unspecified, unspecified eye, initial encounter (principal)
CPT/HCPCS: 70200

== ENCOUNTER → 2023-09-09 14:01 | Outpatient (REF) | payer OTHER, SELFPAY ==
--- NOTE | 2023-09-09 14:05 | CA_ITS ---
Transthoracic Echocardiogram Patient (Last, First, Middle): Vicente Lindsay, Gender: Male Date of : 1970 Age: 52 Procedure Date: 09/09/2023 Procedure Type: Transthoracic Echocardiogram Location: OP Height: 162.56 cm Weight: 90.72 kg BSA: 1.96 m2 Heart Rate: bpm BP: 134 / 80 mmHg Braille Transcriber: MYRA Referring MD: Daniel Pollack MD Symptoms: I11.9 - Hypertensive heart disease without heart failure Study Quality: Adequate ECG Rhythm: Sinus Conclusions: - The left ventricular systolic function is normal. The calculated ejection fraction is 61% by biplane method. - LV peak GLS mildly diminished at -15.2%. - No obvious valvular pathology seen on this study. Findings Left Ventricle Normal left ventricular cavity size. There is mildly increased left ventricular wall thickness. The left ventricular systolic function is normal. The calculated ejection fraction is 61% by biplane method. There is no evidence of regional wall motion abnormalities. Diastolic function is normal for age. LV peak GLS mildly diminished at -15.2%. Right Ventricle Normal right ventricular cavity size and systolic function. Atria Both atria are normal in size. Aortic Valve There is a normal trileaflet aortic valve. There is no aortic valve stenosis. There is no aortic valve regurgitation. Mitral Valve The mitral valve appears normal. There is no mitral valve regurgitation. There is no mitral valve stenosis. Pulmonic Valve The pulmonic valve is likely normal. Tricuspid Valve Normal tricuspid valve structure. There is trace tricuspid valve regurgitation. There is no evidence of pulmonary hypertension. Great Vessels The asc aorta is normal in size. Venous The inferior vena cava is normal in size and collapses greater than 50% with inspiration. Pericardium/Pleural There is no evidence of pericardial effusion. Prior Study Comparison No significant change compared to prior study. Recommendations, Care & Conclusions No obvious valvular pathology seen on this study. Measurements 2D Linear Measurements IVSd: 1.23 0.6-0.9/0.6-1.0 cm LVIDd: 4.56 3.9-5.3/4.2-5.9 cm LVIDd Index: 2.33 2.4-3.2/2.2-3.1 cm/m2 LVIDs: 2.65 2.0-3.6 cm LVPWd: 1.27 0.7-1.1 cm Ao Root: 3.10 2.1-3.5 cm LA Diam: 3.60 2.7-3.8/3.0-4.0 cm LAIDs Index: 1.84 1.5-2.3 cm/m2 LV Mass: 267.36 67-162/88-224 g LV Mass Index: 136.41 43-95/49-115 g/m2 LVOT Diam: 2.40 3.0+(-)1.3 cm 2D Systolic Function EF 4C: 58.30 >55% EF 2C: 60.90 >55% EF BiP: 61.00 >55% Mitral Valve MV Pk E: 0.96 MV PK A: 0.96 MV Decel Time: 157.00 E/A: 1.00 E'Lateral: 12.60 E'Medial: 7.83 E/E' Med: 12.30 E/E' Lat: 7.60 PHT: 46.00 MVA PHT: 4.78 Decel Kingfisher: 6.13 Aortic Valve AoV Pk Feliciano: 1.68 AoV Mn Feliciano: 0.99 AoV VTI: 0.28 AoV Pk Grad: 11.00 Aov Mn Grad: 5.00 ÁNGEL Cont.VTI: 2.60 LVOT LVOT Pk Feliciano: 0.92 LVOT Mn Feliciano: 0.50 LVOT VTI: 0.16 LVOT Pk Grad: 3.00 LVOT Mn Grad: 1.00 LVOT Diam: 2.40 LVOT Area: 4.52 Diastolic Function MV Pk E: 0.96 MV Pk A: 0.96 E/A: 1.00 E'Medial: 7.83 E/E' Med: 12.30 E' Laterial: 12.60 E/E' Lat: 7.60 Right Ventricle TAPSE (mm): 29.00 TVS' Feliciano: 17.00 Tricuspid Valve TR Pk Feliciano: 2.06 TR Pk Grad: 17.00 RA Press: 3.00 RVSP: 20.00 Great Vessels Aorta Ao Root-2D: 3.10 2.0-3.7 cm Ao Asc: 3.10 2.1-3.4 cm Pulmonary Valve PV Pk Feliciano: 1.60 Peak PV Grad: 10.00 Updated in Other Vendor System with Status of Final Rosalio Sandoval MD electronically signed on 09/10/2023 1:29:58 PM with status of Final
== END ==
LOC: HO.CARD 14:01
PROVIDERS: PCP Internal Medicine Medical Oncology; Visit Provider Internal Medicine Cardiovascular Disease
DX: I11.9 Hypertensive heart disease without heart failure (principal)
CPT/HCPCS: 93306; 93356

== ENCOUNTER → 2023-09-09 14:05 | Outpatient (BNV) | payer OTHER, SELFPAY | PROVIDERS: PCP Internal Medicine Medical Oncology; Visit Provider Internal Medicine | DX: I11.9 Hypertensive heart disease without heart failure (principal) | CPT/HCPCS: 93306 ==

== ENCOUNTER 2023-09-19 15:10 | Outpatient (AMB) | payer OTHER, SELFPAY ==
--- NOTE | 2023-09-19 15:28 | A.OFFVIS_ITS ---
Intake Vital Signs 09/19/23 15:29 Height 5 ft 4 in Weight 200 lb 9.93 oz BMI 34.4 BP 146/98 H Blood Pressure Location Lt brachial Position Sitting Pulse 94 Intake Visit Reasons: 1 yr f/up Intake Note: 1 year follow-up with ekg feeling good Supervisor Telephone Answering Service Required: No Allergies clonazepam [CLONAZEPAM] Allergy (Unknown, Verified 04/14/23 18:48) UNKNOWN duloxetine [From CYMBALTA] Allergy (Unknown, Verified 04/14/23 18:48) UNKNOWN gabapentin [From NEURONTIN] Allergy (Unknown, Verified 04/14/23 18:48) UNKNOWN ibuprofen [IBUPROFEN] Allergy (Unknown, Verified 04/14/23 18:48) UNKNOWN, SOB, oral lesions indomethacin [INDOMETHACIN] Allergy (Unknown, Verified 04/14/23 18:48) NAUSEA/VOMITING, chest pain naproxen Allergy (Unknown, Verified 04/14/23 18:48) SOB, oral lesions shellfish derived [SHELLFISH DERIVED] Allergy (Unknown, Verified 04/14/23 18:48) UNKNOWN shellfish Allergy (Unknown, Uncoded 11/08/17 00:00) vomiting Medication List - Last Reconciled 09/19/23 by Daniel Pollack MD amitriptyline 50 mg PO BEDTIME valsartan 320 mg PO DAILY HPI HPI Comments History of Present Illness Details Vicente comes for follow-up for his hypertensive heart disease. Recent echocardiogram shows normal LV systolic function with mild LVH with early diastolic dysfunction. He is not happy due to his recent issues with shoulder injury and constant pain. He says blood pressure is generally been elevated. He has been taking valsartan which has been gradual increase by you up to 320 mg. His blood pressure still remains elevated on some readings. He denies any heart failure symptoms. Denies any prolonged palpitation irregular heartbeat. Denies any exertional chest pain. 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 Review of Systems Const Denies chills, Denies fatigue, Denies fever(s), Denies frequent falls, Denies weakness, Denies weight gain and Denies weight loss ENT Denies dizziness Card Denies chest pain, Denies leg edema, Denies lightheadedness, Denies palpitations, Denies dyspnea, Denies dyspnea on exertion, Denies orthopnea and Denies other (loss of consciousness) Resp Denies cough, Denies dyspnea and Denies dyspnea on exertion GI Denies hematochezia and Denies change in stool character Musc Denies abnormal gait, Denies muscle weakness, Denies numbness, Denies radiating pain into limb and Denies tingling Neuro Denies Abnormal speech present, Denies abnormal gait, Denies dizziness, Denies frequent falls, Denies numbness, Denies tingling and Denies weakness Endo Denies fatigue and Denies palpitations Physical Exam Vital Signs: Last Vital Signs Pulse 94 09/19/23 15:29 BP 146/98 H 09/19/23 15:29 BMI result Body Mass Index 34.4 Const General: cooperative, comfortable, no acute distress, alert, awake and other (Agitated) Nutritional Appearance: obese Orientation/consciousness: patient oriented x3 Limitations: no limitations HEENT Head: Yes atraumatic Neck Neck: Yes trachea midline, Yes supple and Yes no JVD Resp Effort & Inspection: normal respiratory effort Auscultation: clear to auscultation bilaterally and diminished lung sounds Cardio Jugular venous distension: no JVD Palpation: normal PMI Rate: regular rate and tachycardic Rhythm: regular rhythm Heart sounds: S1 normal heart sound present, S2 normal heart sound present, no click, no gallops, no murmurs and no rubs GI Auscultation: normal bowel sounds Skin General skin exam: no rashes or lesions noted Neuro General: patient oriented x3 and no focal motor deficits Speech: No Abnormal speech present Extrem General: Yes no clubbing, cyanosis or edema Psych Appearance: grossly normal Affect: Anxious affect present Office Procedures EKG Details: EKG shows normal sinus rhythm with nonspecific T-wave changes more prominent inferiorly consistent with repolarization abnormality [id number], Complete Assessment & Plan Assessment & Plan (1) Hypertensive heart disease: Code(s): I11.9 - Hypertensive heart disease without heart failure Plan: Mild hypertensive heart disease without signs or symptoms of heart failure. Importance of medical therapy was discussed. He is very upset about his overall health condition and multiple doctor's visit. I understand that. I think his blood pressure is not controlled due to significant pain issues. He feels very dejected about the whole situation at this point time. However I discussed with him the importance of blood pressure control and to avoid end-organ damage especially worsening hypertensive heart disease and heart failure syndrome. Understands agrees advised to monitor blood pressure at home maintain a log. Low-salt diet was discussed. Advised to increase aerobic activity and participate in weight loss program. Will add amlodipine 2.5 mg to his regimen to target goal blood pressure at all times with a 130/84 to reduce future negative cardiovascular outcomes. He understands agrees. If he tolerates this low-dose therapy can then combined it with his valsartan therapy to improve compliance. Will follow up in the clinic if need be. Thank you for allowing me to partake in his care Coding Level of Care Code Est Pt Level 3 (09772) Diagnoses Hypertensive heart disease I11.9 CPT Codes EKG - CPT: 04195-[id number], Complete ([id number])
[2023-09-19 15:29] VITALS: BP 146/98; PULSE 94; BMI 34.4
== END 2023-09-19 15:52 | disposition home or self-care (01) ==
PROVIDERS: PCP Internal Medicine Medical Oncology; Visit Provider Internal Medicine Cardiovascular Disease
DX: I11.9 Hypertensive heart disease without heart failure (principal)
CPT/HCPCS: 93010; 99213

== ENCOUNTER → 2023-09-19 15:10 | Outpatient (BNVA) | payer OTHER, SELFPAY | PROVIDERS: Visit Provider Internal Medicine Cardiovascular Disease | DX: I11.9 Hypertensive heart disease without heart failure (principal) | CPT/HCPCS: 93005 ==

== ENCOUNTER 2024-02-14 06:31 | Day surgery (SDC) | payer OTHER, SELFPAY ==
[2024-02-12 15:05] VITALS: BMI 33.8
--- NOTE | 2024-02-13 10:44 | HO.ANESPROP2 ---
Documented by User: Idalia Ponce NP 02/13/24 10:44 HPI - Anesthesia Eval Consult details Narrative: 53yo M for Colonoscopy PMFSH Active Problems Active Problems: All Active Problems Hypertensive heart disease (Acute) HTN (hypertension) (Acute) Past Medical History Medical History (Updated 02/14/24 @ 07:54 by Arlin Trujillo MD) Leg pain Anxiety associated with depression HTN (hypertension) Migraine Surgical History Surgical History (Updated 02/14/24 @ 07:30 by Arlin Trujillo MD) Hx laparoscopic cholecystectomy History of appendectomy Social History Social History Patient Tobacco Use Status: Never used Tobacco Use of substances other than those prescribed or required for medical reasons: No Are you DNR?: No Advance Directives: No Advance Directives Information Provided: Yes Current occupational status: employed 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 Meds Allergies Allergy/AdvReac Type Severity Reaction Status Date / Time naproxen Allergy Intermediate SOB, oral Verified 02/14/24 06:40 lesions clonazepam [CLONAZEPAM] Allergy Unknown UNKNOWN Verified 02/14/24 06:40 duloxetine [From CYMBALTA] Allergy Unknown UNKNOWN Verified 02/14/24 06:40 gabapentin [From NEURONTIN] Allergy Unknown UNKNOWN Verified 02/14/24 06:40 ibuprofen [IBUPROFEN] Allergy Unknown UNKNOWN, Verified 02/14/24 06:40 SOB, oral lesions indomethacin [INDOMETHACIN] Allergy Unknown NAUSEA/VOMITING, Verified 02/14/24 06:40 chest pain shellfish derived Allergy Unknown UNKNOWN Verified 02/14/24 06:40 [SHELLFISH DERIVED] Home Medications ?Medication ?Instructions ?Recorded ?Confirmed ?Last Taken ?Type amitriptyline 25 mg tablet 50 mg PO BEDTIME 09/19/23 02/14/24 Unknown History valsartan 80 mg tablet 320 mg PO DAILY 09/19/23 02/14/24 Unknown History Exam Height,Weight and Vital Signs: Height 5 ft 4 in Weight 89.358 kg Assessment and Plan Assessment Anesthesia Assessment: Chart Reviewed Documented by User: Arlin Trujillo MD 02/14/24 07:59 PMF Active Problems Active Problems: All Active Problems Hypertensive heart disease (Acute) HTN (hypertension) (Acute) Increased BMI Denies LAUREEN Past Medical History Medical History (Updated 02/14/24 @ 07:54 by Arlin Trujillo MD) Leg pain Anxiety associated with depression HTN (hypertension) Migraine Family History Family history of problems with anesthesia: No Surgical History Surgical History (Updated 02/14/24 @ 07:30 by Arlin Trujillo MD) Hx laparoscopic cholecystectomy History of appendectomy History of Problems with Anesthesia: No Social History Social History Patient Tobacco Use Status: Never used Tobacco Use of substances other than those prescribed or required for medical reasons: No Are you DNR?: No Advance Directives: No Advance Directives Information Provided: Yes Current occupational status: employed 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 Meds Allergies Allergy/AdvReac Type Severity Reaction Status Date / Time naproxen Allergy Intermediate SOB, oral Verified 02/14/24 06:40 lesions clonazepam [CLONAZEPAM] Allergy Unknown UNKNOWN Verified 02/14/24 06:40 duloxetine [From CYMBALTA] Allergy Unknown UNKNOWN Verified 02/14/24 06:40 gabapentin [From NEURONTIN] Allergy Unknown UNKNOWN Verified 02/14/24 06:40 ibuprofen [IBUPROFEN] Allergy Unknown UNKNOWN, Verified 02/14/24 06:40 SOB, oral lesions indomethacin [INDOMETHACIN] Allergy Unknown NAUSEA/VOMITING, Verified 02/14/24 06:40 chest pain shellfish derived Allergy Unknown UNKNOWN Verified 02/14/24 06:40 [SHELLFISH DERIVED] Home Medications ?Medication ?Instructions ?Recorded ?Confirmed ?Last Taken ?Type amitriptyline 25 mg tablet 50 mg PO BEDTIME 09/19/23 02/14/24 Unknown History valsartan 80 mg tablet 320 mg PO DAILY 09/19/23 02/14/24 Unknown History Exam Height,Weight and Vital Signs: Height 5 ft 4 in Weight 89.358 kg Vital Signs Temp Pulse Resp BP Pulse Ox O2 Del Method 02/14/24 06:47 96.9 F 95 18 132/90 H 96 Room Air Airway Mallampati Class: IV TM Dist: >3cm Neck ROM: Full Loose/Missing/Broken Teeth: No (Crowns intact. Denies broken,loose,missing teeth ) Heart: RRR Lungs: CTAB Assessment and Plan Assessment Anesthesia Assessment: Anesthesia Plan Discussed and Chart Reviewed Final Anesthetic Review Family History of Problems with Anesthesia: No History of Problems with Anesthesia: No NPO: Yes ASA Class: II Final Preanesthetic Review: No Changes in Pt Med Stat, Meds/Allgs Chart Reviewed, Consent Obtained/Reviewed and Anes Risks/Benef Reviewed Patient Risk: Low Procedure Risk: Low Assessment/Block/Sedation in SS: Assess/Block/Sedation-SS Anesthetic Plan Anesthetic Plan: TIVA Disposition: Standard PACU
[2024-02-14 06:47] VITALS: BP 132/90; PULSE 95; RESP 18; TEMP 36.1; O2SAT 96; BMI 33.1
[2024-02-14] MEDS: Lactated Ringers 1,000 ML 100 ML IVCONT (07:03)
[2024-02-14 08:30] VITALS: BP 108/76; PULSE 79; RESP 14; TEMP 36.4; O2SAT 95
--- NOTE | 2024-02-14 08:31 | P.BOP_ITS ---
Brief Operative Note Date of Service: 02/14/24 Pre-op diagnosis: Screening Post-op diagnosis: other (Occasional sigmoid diverticulosis) Procedure: Colonoscopy to the cecum Surgeon: Sanket Hankins MD Anesthesia: MAC Was an Legislative Analyst used for this Procedure?: No Estimated blood loss (mL): 0 Pathology: none sent Condition: stable Disposition: PACU
[2024-02-14 08:35] VITALS: BP 111/74; PULSE 75; RESP 14; O2SAT 95
[2024-02-14 08:40] VITALS: BP 125/88; PULSE 88; RESP 14; O2SAT 95
[2024-02-14 08:45] VITALS: BP 140/93; PULSE 72; RESP 16; TEMP 36.5; O2SAT 99
--- NOTE | 2024-02-14 09:02 | PC.NURSE ---
24hr update documented on paper.
--- NOTE | 2024-02-14 09:50 | OP_ITS ---
DATE OF SERVICE: 02/14/2024 SURGEON: Sanket Hankins MD INDICATIONS: The patient presents for evaluation of colorectal cancer screening. Full consent has been obtained from him for this, including risks of bleeding and perforation. PREOPERATIVE DIAGNOSIS: Colorectal cancer screening. POSTOPERATIVE DIAGNOSIS: PROCEDURE PERFORMED: Colonoscopy to the cecum. ESTIMATED BLOOD LOSS: COMPLICATIONS: ANESTHESIA: Monitored anesthesia care. ASSISTANTS: SPECIMENS: POSTOPERATIVE DIAGNOSES: Colorectal cancer screening, occasional sigmoid diverticulosis, internal hemorrhoids. DESCRIPTION OF PROCEDURE: The patient was placed in the left lateral decubitus position. The digital rectal exam revealed no abnormalities. The Olympus video pediatric colonoscope was then entered into the rectum and advanced easily to the cecum. Once in the cecum, I did identify normal-appearing cecal pouch with appendiceal orifice and a normal-appearing ileocecal valve. The entire cecum and ileocecal valve appeared normal. There was transillumination of light deep in the right lower quadrant. The scope was then slowly withdrawn assessing all mucosal surfaces carefully. The preparation was excellent. I did not visualize any sign of polyps, colitis, nor angiodysplasias. There were occasional diverticula noted in the sigmoid colon. In the rectum, scope was retroflexed, visualizing internal hemorrhoids, but no other pathology. The rectal mucosa appeared normal. Scope was straightened and withdrawn from the patient. He tolerated the procedure well and was returned to the recovery area in stable condition. IMPRESSION: 1. Occasional sigmoid diverticulosis. 2. Internal hemorrhoids. PLAN: Given today's negative exam and negative family history, I would recommend a followup colonoscopy in 10 years for screening. He will, otherwise, see me on a p.r.n. basis. Sanket Hankins MD RMW/ALLIEL / [phone]
== END 2024-02-14 09:20 | disposition home or self-care (01) ==
PROVIDERS: PCP Internal Medicine Medical Oncology; Visit Provider Internal Medicine
PROC: 0DJD8ZZ Inspection of Lower Intestinal Tract, Via Natural or Artificial Opening Endoscopic (ICD-10-PCS; CPT 45378; principal; 2024-02-14 07:30)
DX: Z12.11 Encounter for screening for malignant neoplasm of colon (principal); K57.30 Diverticulosis of large intestine without perforation or abscess without bleeding; K64.8 Other hemorrhoids; I10 Essential (primary) hypertension
CPT/HCPCS: 45378; J2704

== ENCOUNTER 2024-04-04 07:26 | Outpatient (REF) | payer OTHER, SELFPAY ==
[2024-04-04 08:04] LABS: MANUAL DIFF FLAG NO
[2024-04-04 08:21] LABS: Basophils Absolute Auto 0.1 X10*3/uL (0.0-0.2); Eosinophils Absolute Auto 0.1 X10*3/uL (0.0-0.4); Eosinophils Percent Auto 2.5 % (0-4); Hemoglobin 15.8 g/dl (14.0-18.0); Imm Gran Abs Auto 0.05 X10*3/uL (0.00-0.03); Lymphocytes Absolute Auto 1.4 X10*3/uL (1.2-4.9); Lymphocytes Percent Auto 28.3 % (20-40); Mean Corpuscular HGB Conc 36.7 g/dl (31.0-36.0); Mean Corpuscular Hemoglobin 32.4 pg (27.0-33.0); Mean Corpuscular Volume 88.1 fL (80.0-98.0); Mean Platelet Volume 10.7 fL (9.4-12.4); Monocytes Absolute Auto 0.5 X10*3/uL (0.1-1.2); Monocytes Percent Auto 9.7 % (2-11); Neutrophils Absolute Auto 2.8 x10*3/uL (2.0-8.3); Neutrophils Percent Auto 57.5 % (45-73); Platelet Count 213 X10*3/uL (160-400); Red Blood Count 4.88 X10*6/uL (4.60-5.80); Red Cell Distribution Width 11.8 % (11.0-16.0); White Blood Count 4.9 X10*3/uL (4.8-10.8)
[2024-04-04 08:45] LABS: Alanine Aminotransferase 34 U/L (0-40); Albumin Level 4.5 g/dL (3.5-5.0); Alkaline Phosphatase 86 U/L (39-117); Anion Gap 12 (12-20); Aspartate Amino Transferase 19 U/L (5-37); Bilirubin Total 0.4 mg/dL (0.0-1.0); Blood Urea Nitrogen 14 mg/dL (9-16); Carbon Dioxide 28 mmol/L (22-29); Chloride 107 mmol/L (96-108); Cholesterol 183 mg/dL (<200); Estimated Glomerular Filt Rate > 60; Glucose Random 118 mg/dL (60-115); HDL Cholesterol 36 mg/dL (>40); LDL Cholesterol Calculated 120 mg/dL (<100); Potassium 4.8 mmol/L (3.3-5.1); Sodium 142 mmol/L (135-145); Total Protein 7.2 g/dL (6.5-8.0); Triglycerides 136 mg/dL (<150)
[2024-04-09 14:14] LABS: Testosterone, Total 592 ng/dL (250-1100)
== END 2024-04-04 07:27 | disposition home or self-care (01) ==
LOC: HO.LAB 07:26
PROVIDERS: PCP Internal Medicine Medical Oncology; Visit Provider Internal Medicine Medical Oncology
DX: Z00.00 Encounter for general adult medical examination without abnormal findings (principal); N40.0 Benign prostatic hyperplasia without lower urinary tract symptoms; E66.9 Obesity, unspecified
CPT/HCPCS: 36415; 80053; 80061; 84403; 85025

== ENCOUNTER 2024-06-02 13:41 | Outpatient (AMB) | payer OTHER, SELFPAY ==
--- NOTE | 2024-06-02 13:54 | MHC.OFFVIS ---
Vital Signs 06/02/24 13:55 Height 5 ft 4 in Weight 207 lb 3.752 oz BMI 35.6 BP 134/92 H Blood Pressure Location Lt brachial Position Sitting Pulse 111 H Pulse Source Pulse Oximeter Pulse Oximetry (%) 98 Oxygen Delivery Method Room Air Intake Visit Reasons: snoring/ daytime somnolence Electronics Worker Required: No Allergies naproxen Allergy (Intermediate, Verified 06/02/24 13:57) SOB, oral lesions clonazepam [CLONAZEPAM] Allergy (Unknown, Verified 06/02/24 13:57) UNKNOWN duloxetine [From CYMBALTA] Allergy (Unknown, Verified 06/02/24 13:57) UNKNOWN gabapentin [From NEURONTIN] Allergy (Unknown, Verified 06/02/24 13:57) UNKNOWN ibuprofen [IBUPROFEN] Allergy (Unknown, Verified 06/02/24 13:57) UNKNOWN, SOB, oral lesions indomethacin [INDOMETHACIN] Allergy (Unknown, Verified 06/02/24 13:57) NAUSEA/VOMITING, chest pain shellfish derived [SHELLFISH DERIVED] Allergy (Unknown, Verified 06/02/24 13:57) UNKNOWN HPI HPI snoring/ daytime somnolence: Details: 53-year-old gentleman, nonsmoker, referred for evaluation of underlying sleep concerns. Patient states that he normally falls asleep at around 21:30 and wakes up at 05:30, however he does not feel well rested and feels fatigued through the day. He was observed snoring by his . Patient denies morning headaches or falling asleep at the steering wheel. He does complain of environmental allergies, particularly in late spring/Aimee and early fall. He is not interested in further environmental allergies workup at this time. 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 Review of Systems Const Denies daytime sleepiness, Denies excessive sweating, Denies fatigue, Denies fever(s), Denies lethargy, Denies malaise, Denies night sweats, Denies snoring and Denies weight loss Eyes Denies blurry vision and Denies itchy eyes ENT Denies nasal congestion, Denies post nasal drip, Denies sinus pain, Denies sinus pressure and Denies other ( Thrush) Card Denies chest pain, Denies pedal edema, Denies dyspnea, Denies orthopnea and Denies paroxysmal nocturnal dyspnea Resp Denies cough, Denies hemoptysis, Denies excessive phlegm production, Denies dyspnea, Denies snoring and Denies wheezing GI Denies abdominal pain and Denies heartburn Musc Denies myalgias, Denies arthralgias and Denies joint swelling Skin/Breast Denies rash Neuro Denies memory loss and Denies seizure-like activity Psych Denies abnormal sleep pattern, Denies anxiety and Denies memory loss Endo Denies excessive sweating, Denies fatigue and Denies heat intolerance Poli/Lymph Denies easy bruising Aller/Immun Denies itchy eyes, Denies seasonal rhinorrhea and Denies wheezing Physical Exam Vital Signs: Last Vital Signs Pulse 111 H 06/02/24 13:55 BP 134/92 H 06/02/24 13:55 Pulse Ox 98 06/02/24 13:55 Oxygen Delivery Method Room Air 06/02/24 13:55 BMI result Body Mass Index 35.6 Const General: no acute distress and alert Nutritional Appearance: not obese Orientation/consciousness: Other orientation findings ( oriented) HEENT Head: Yes atraumatic Eyes General: appearance normal, both eyes and all related structures Sclerae: sclerae normal EOM: EOMs intact bilaterally Neck Neck: Yes supple Lymphatic: no lymphadenopathy noted Resp Effort & Inspection: normal respiratory effort and no use of accessory muscles Auscultation: clear to auscultation bilaterally Cardio Rate: regular rate Rhythm: regular rhythm Heart sounds: no gallops, no murmurs and no rubs Skin General skin exam: other ( warm) Extrem General: No clubbing, No cyanosis and No edema Assessment & Plan Assessment & Plan (1) LAUREEN (obstructive sleep apnea): Code(s): G47.33 - Obstructive sleep apnea (adult) (pediatric) Category: Medical Plan: Unrestful sleep, daytime sleepiness, snoring. [place] Sleepiness Scale score of 15. Will obtain home sleep study. (2) Environmental allergies: Code(s): Z91.09 - Other allergy status, other than to drugs and biological substances Category: Medical Plan: Underlying environmental allergies on as needed OTC antihistamines. At this time patient is not interested in further workup, will consider RAST testing if worsens. Orders: Orders RT home sleep study Today G47.33 - Obstructive sleep apnea (adult) (pediatric) Coding Level of Care Code New Pt Level 4 (13697) Diagnoses LAUREEN (obstructive sleep apnea) G47.33 Environmental allergies Z91.09
[2024-06-02 13:55] VITALS: BP 134/92; PULSE 111; O2SAT 98; BMI 35.6
== END 2024-06-02 14:20 | disposition home or self-care (01) ==
LOC: HO.HPS 13:41
PROVIDERS: PCP Internal Medicine Medical Oncology; Visit Provider Internal Medicine Pulmonary Disease
DX: G47.33 Obstructive sleep apnea (adult) (pediatric) (principal); Z91.09 Other allergy status, other than to drugs and biological substances
CPT/HCPCS: 99204

== ENCOUNTER → 2024-06-02 13:41 | Outpatient (BNVA) | payer OTHER, SELFPAY | PROVIDERS: PCP Internal Medicine Medical Oncology; Visit Provider Internal Medicine Pulmonary Disease ==

== ENCOUNTER → 2024-07-13 08:54 | Outpatient (REF) | payer OTHER, SELFPAY | LOC: HO.SL 08:54 | PROVIDERS: PCP Internal Medicine Medical Oncology; Visit Provider Internal Medicine Pulmonary Disease | DX: Z13.89 Encounter for screening for other disorder (principal) ==

== ENCOUNTER 2024-07-21 13:53 | Outpatient (AMB) | payer OTHER, SELFPAY ==
[2024-07-21 13:59] VITALS: BP 142/87; PULSE 85; O2SAT 98; BMI 35.0
--- NOTE | 2024-07-21 13:59 | A.OFFVIS_ITS ---
Vital Signs 07/21/24 13:59 Height 5 ft 4 in Weight 203 lb 14.841 oz BMI 35.0 BP 142/87 H Blood Pressure Location Lt brachial Position Sitting Pulse 85 Pulse Source Doppler Pulse Oximetry (%) 98 Oxygen Delivery Method Room Air Intake Visit Reasons: sleep Study results Allergies naproxen Allergy (Intermediate, Verified 06/02/24 13:57) SOB, oral lesions clonazepam [CLONAZEPAM] Allergy (Unknown, Verified 06/02/24 13:57) UNKNOWN duloxetine [From CYMBALTA] Allergy (Unknown, Verified 06/02/24 13:57) UNKNOWN gabapentin [From NEURONTIN] Allergy (Unknown, Verified 06/02/24 13:57) UNKNOWN ibuprofen [IBUPROFEN] Allergy (Unknown, Verified 06/02/24 13:57) UNKNOWN, SOB, oral lesions indomethacin [INDOMETHACIN] Allergy (Unknown, Verified 06/02/24 13:57) NAUSEA/VOMITING, chest pain shellfish derived [SHELLFISH DERIVED] Allergy (Unknown, Verified 06/02/24 13:57) UNKNOWN HPI HPI sleep Study results: Details: 53-year-old gentleman, nonsmoker, referred for evaluation of underlying sleep concerns. Patient states that he normally falls asleep at around 21:30 and wakes up at 05:30, however he does not feel well rested and feels fatigued through the day. He was observed snoring by his . Patient denies morning headaches or falling asleep at the steering wheel. He does complain of envir onmental allergies, particularly in late spring/Aimee and early fall. He is not interested in further environmental allergies workup at this time. After the last office visit patient had a home sleep study, however now data was captured during the study. At this time patient is not interested in further workup. 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 Coding Level of Care Code Est Pt Level 2 (69747) Diagnoses LAUREEN (obstructive sleep apnea) G47.33
== END 2024-07-21 14:16 | disposition home or self-care (01) ==
PROVIDERS: PCP Internal Medicine Medical Oncology; Visit Provider Internal Medicine Pulmonary Disease
DX: G47.33 Obstructive sleep apnea (adult) (pediatric) (principal)
CPT/HCPCS: 99212

== ENCOUNTER → 2024-07-21 13:53 | Outpatient (BNVA) | payer OTHER, SELFPAY | PROVIDERS: PCP Internal Medicine Medical Oncology; Visit Provider Internal Medicine Pulmonary Disease ==

== ENCOUNTER 2024-12-03 11:57 | Day surgery (SDC) | payer OTHER, SELFPAY ==
--- OUTSIDE RECORDS SUMMARY | 2024-11-27 14:59 | XMS_ITS | Clinical Summary ---
Author Organization [facility] Address [address] [place] [address] Phone Care Team Providers Care Welder Assistant Name Role Phone Physician, No Pcp Primary Care Provider Unavaila ble Allergies Active Allergy Reactions Criticality Noted Date Comments Indomethacin Unknown 09/21/2024 Clonazepam Hallucinations 09/21/2024 Suicidal and homicidal ideations Gabapentin 09/21/2024 Shellfish Derived Nausea And Vomiting Encounters Date Type Department Care Team Description 09/21/2024 12:28 PM EST - 09/21/2024 1:39 PM EST Emergency [facility] Emergency [address] [place] [address] Strain of right shoulder, initial encounter (Primary Dx) Discharge Disposition: Home or Self Care from Last 3 Months Social History Tobacco Use Types Packs/Day Years Used Date Smoking Tobacco: Never Assessed Sex and Gender Information Value Date Recorded Sex Assigned at Not on file Legal Sex Male 10:38 AM EST Gender Identity Not on file Sexual Orientation Not on file Last Filed Vital Signs Vital Sign Reading Time Taken Comments Blood Pressure 153/115 09/21/2024 12:18 PM EST Pulse 98 09/21/2024 12:18 PM EST Temperature 36.4 ??C (97.5 ??F) 09/21/2024 12:[address] Respiratory Rate 18 09/21/2024 12:18 PM EST Oxygen Saturation 97% 09/21/2024 12:18 PM EST Inhaled Oxygen Concentration - - Weight 90.7 kg (200 lb) 09/21/2024 12:18 PM EST Height 162.6 cm (5' 4 ) 09/21/2024 12:18 PM EST Body Mass Index 34.33 09/21/2024 12:18 PM EST Plan of Treatment Health Maintenance Due Date Last Done Comments Hepatitis B Vaccines (1 of 3 - 19+ 3-dose series) 1991 Pneumococcal Vaccine: 50+ Ye ars (1 of 1 - PCV) 2022 Zoster Vaccines (1 of 2) 2022 DTaP,Tdap,and Td Vaccines (2 - Td or Tdap) 01/19/2023 01/19/2013 COVID-19 Vaccine (1 - 2023-2 5 season) 2024 Cholesterol Screening (Lipid Panel) 09/21/2024 Colorectal Cancer Screening: Colonoscopy 09/21/2024 Depression Screening 09/21/2024 HIV Screening 09/21/2024 Hepatitis C Screening 09/21/2024 Social Influencers of Health Screening 09/21/2024 Influenza Vaccine (Season Ended) 2025 HIB Vaccines Aged Out No longer eligi ble based on patient's age to complete this topic HPV Vaccines Aged Out No longer eligi ble based on patient's age to complete this topic Hepatitis A Vaccines Aged Out No long er eligible based on patient's age to complete this topic IPV Vaccines Aged Out No longer eligi ble based on patient's age to complete this topic MMR Vaccines Aged Out No longer eligi ble based on patient's age to complete this topic Meningococcal ACWY Vaccine Aged Out N o longer eligible based on patient's age to complete this topic Meningococcal B Vaccine Aged Out No l onger eligible based on patient's age to complete this topic Pneumococcal Vaccine: Pediat rics (0 to 5 Years) and At-Risk Patients (6 to 64 Years) Aged Out No longer eligi ble based on patient's age to complete this topic RSV Immunization Patients Un richie 20 months Aged Out No longer eligible b ased on patient's age to complete this topic Varicella Vaccines Aged Out No longer eligible based on patient's age to complete this topic Procedures Procedure Name Priority Date/Time Associated Diagnosis Comments XR SHOULDER 2+ VIEWS RIGHT STAT 09/21/2024 12:30 PM EST from Last 3 Months Results * XR Shoulder 2+ Views Right (09/21/2024 12:30 PM EST) Anatomical Region Laterality Modality Upper Extremities, Shoulder Right Radi ographic Imaging 09/21/2024 12:4 0 PM EST Impressions 09/21/2024 12:40 PM EST FINDINGS/IMPRESSION: Three views of the shoulder demonstrating degenerative changes. ??No acute fracture. ?No dislocation. -------- FINAL REPORT -------- Dictated By: Brigida Sanchez Dictated Date: 09/21/2024 12:40 ET Assigned Physician: Brigida Sanchez Reviewed and Electronically Signed By: Brigida Sanchez Signed Date: 09/21/2024 12:40 ET Workstation ID: [id number] Transcribed By: Self Edit Transcribed Date: 09/21/2024 12:40 ET Narrative 09/21/2024 12:40 PM EST XR SHOULDER 2+ VIEWS RIGHT INDICATION: pain TECHNIQUE: XR SHOULDER 2+ VIEWS RIGHT COMPARISON: No priors available. Procedure Note Brigida Sanchez MD - 09/21/2024 XR SHOULDER 2+ VIEWS RIGHT INDICATION: pain TECHNIQUE: XR SHOULDER 2+ VIEWS RIGHT COMPARISON: No priors available. IMPRESSION: FINDINGS/IMPRESSION: Three views of the shoulder demonstratingdegenerative changes. No acute fracture. No dislocation. -------- FINAL REPORT -------- Dictated By: Brigida Sanchez Dictated Date: 09/21/2024 12:40 ET Assigned Physician: Brigida Sanchez Reviewed and Electronically Signed By: Brigida Sanchez Signed Date: 09/21/2024 12:40 ET Workstation ID: [id number] Transcribed By: Self Edit Transcribed Date: 09/21/2024 12:40 ET Gerardo LEON IMG XR PROCEDURES Final Resu lt from Last 3 Months Insurance GENERIC Care Teams Welder Assistant Relationship Specialty Start Date End Date Physician, No Pcp PCP - General 09/21/24
[2024-12-01 11:16] VITALS: BMI 34.3
[2024-12-03 12:05] VITALS: BP 148/94; PULSE 98; RESP 18; TEMP 36.4; BMI 33.5
[2024-12-03] MEDS: Lactated Ringers 1,000 ML 100 ML IVCONT (12:18)
--- NOTE | 2024-12-03 12:57 | P.CONAN_ITS ---
Documented by User: Idalia Ponce NP 12/02/24 09:11 HPI - Anesthesia Eval Consult details Narrative: 54yo M for Upper Endoscopy with Balloon Dilitation PMFSH Active Problems Active Problems: All Active Problems Environmental allergies (Acute) LAUREEN (obstructive sleep apnea) (Acute) Hypertensive heart disease (Acute) HTN (hypertension) (Acute) Past Medical History Medical History (Updated 12/01/24 @ 11:12 by Suzie Kearney RN) Hx of rotator cuff tear GERD (gastroesophageal reflux disease) Leg pain Anxiety associated with depression HTN (hypertension) Migraine Family History Family history of problems with anesthesia: No Surgical History Surgical History (Updated 12/01/24 @ 11:12 by Suzie Kearney RN) H/O colonoscopy Hx laparoscopic cholecystectomy History of appendectomy History of Problems with Anesthesia: No Social History Social History (Updated 06/02/24 @ 13:59 by Geovanna Kolb Ashley) Patient Tobacco Use Status: Former Tobacco user Second Hand Smoke Exposure: No Use of substances other than those prescribed or required for medical reasons: No Have you been hit, kicked, punched, or otherwise hurt by someone within the past year? 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 Meds Allergies Allergy/AdvReac Type Severity Reaction Status Date / Time naproxen Allergy Intermediate SOB, oral Verified 06/02/24 13:57 lesions clonazepam [CLONAZEPAM] Allergy Unknown UNKNOWN Verified 06/02/24 13:57 duloxetine [From CYMBALTA] Allergy Unknown UNKNOWN Verified 06/02/24 13:57 gabapentin [From NEURONTIN] Allergy Unknown UNKNOWN Verified 06/02/24 13:57 ibuprofen [IBUPROFEN] Allergy Unknown UNKNOWN, Verified 06/02/24 13:57 SOB, oral lesions indomethacin [INDOMETHACIN] Allergy Unknown NAUSEA/VOMITING, Verified 06/02/24 13:57 chest pain shellfish derived Allergy Unknown UNKNOWN Verified 06/02/24 13:57 [SHELLFISH DERIVED] amlodipine Allergy Unknown Verified 12/01/24 11:07 lisinopril Allergy Unknown Verified 12/01/24 11:07 metoprolol Allergy Unknown Verified 12/01/24 11:07 morphine Allergy Chest Pain Verified 12/01/24 11:13 shrimp Allergy Unknown Verified 12/01/24 11:07 Home Medications ?Medication ?Instructions ?Recorded ?Confirmed ?Last Taken ?Type amitriptyline 25 mg tablet 25 mg PO BEDTIME 09/19/23 12/01/24 Unknown History valsartan 80 mg tablet 320 mg PO DAILY 09/19/23 12/01/24 Unknown History acetaminophen 325 mg tablet 650 mg PO Q6H PRN Pain 12/01/24 12/01/24 Unknown History naproxen sodium 220 mg capsule 220 mg PO Q12H PRN Pain 12/01/24 12/01/24 Unknown History (Aleve) omeprazole 20 mg capsule,delayed 20 mg PO DAILY 12/01/24 12/01/24 Unknown History release Exam Height,Weight and Vital Signs: Height 5 ft 4 in Weight 90.718 kg Assessment and Plan Assessment Anesthesia Assessment: Chart Reviewed Final Anesthetic Review Family History of Problems with Anesthesia: No History of Problems with Anesthesia: No Documented by User: Marisabel Dumas DO 12/03/24 12:58 PMFSH Past Medical History Medical History (Updated 12/01/24 @ 11:12 by Suzie Kearney RN) Hx of rotator cuff tear GERD (gastroesophageal reflux disease) Leg pain Anxiety associated with depression HTN (hypertension) Migraine Family History Family history of problems with anesthesia: No Surgical History Surgical History (Updated 12/01/24 @ 11:12 by Suzie Kearney RN) H/O colonoscopy Hx laparoscopic cholecystectomy History of appendectomy History of Problems with Anesthesia: No Social History Social History (Updated 06/02/24 @ 13:59 by FELECIA Azar) Patient Tobacco Use Status: Former Tobacco user Second Hand Smoke Exposure: No Use of substances other than those prescribed or required for medical reasons: No Have you been hit, kicked, punched, or otherwise hurt by someone within the past year? 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 Meds Allergies Allergy/AdvReac Type Severity Reaction Status Date / Time naproxen Allergy Intermediate SOB, oral Verified 06/02/24 13:57 lesions clonazepam [CLONAZEPAM] Allergy Unknown UNKNOWN Verified 06/02/24 13:57 duloxetine [From CYMBALTA] Allergy Unknown UNKNOWN Verified 06/02/24 13:57 gabapentin [From NEURONTIN] Allergy Unknown UNKNOWN Verified 06/02/24 13:57 ibuprofen [IBUPROFEN] Allergy Unknown UNKNOWN, Verified 06/02/24 13:57 SOB, oral lesions indomethacin [INDOMETHACIN] Allergy Unknown NAUSEA/VOMITING, Verified 06/02/24 13:57 chest pain shellfish derived Allergy Unknown UNKNOWN Verified 06/02/24 13:57 [SHELLFISH DERIVED] amlodipine Allergy Unknown Verified 12/01/24 11:07 lisinopril Allergy Unknown Verified 12/01/24 11:07 metoprolol Allergy Unknown Verified 12/01/24 11:07 morphine Allergy Chest Pain Verified 12/01/24 11:13 shrimp Allergy Unknown Verified 12/01/24 11:07 Home Medications ?Medication ?Instructions ?Recorded ?Confirmed ?Last Taken ?Type amitriptyline 25 mg tablet 25 mg PO BEDTIME 09/19/23 12/01/24 Unknown History valsartan 80 mg tablet 320 mg PO DAILY 09/19/23 12/01/24 Unknown History acetaminophen 325 mg tablet 650 mg PO Q6H PRN Pain 12/01/24 12/01/24 Unknown History naproxen sodium 220 mg capsule 220 mg PO Q12H PRN Pain 12/01/24 12/01/24 Unknown History (Aleve) omeprazole 20 mg capsule,delayed 20 mg PO DAILY 12/01/24 12/01/24 Unknown History release Exam Exam Date and Time: 12/03/24 1255 Height,Weight and Vital Signs: Height 5 ft 4 in Weight 90.718 kg Vital Signs Temperature 97.5 F 12/03/24 12:05 Pulse Rate 98 12/03/24 12:05 Respiratory Rate 18 12/03/24 12:05 Blood Pressure 148/94 H 12/03/24 12:05 Oxygen Delivery Method Room Air 12/03/24 12:05 Temperature 97.5 F 12/03/24 12:05 Pulse Rate 98 12/03/24 12:05 Respiratory Rate 18 12/03/24 12:05 Blood Pressure 148/94 H 12/03/24 12:05 Oxygen Delivery Method Room Air 12/03/24 12:05 Airway Mallampati Class: III TM Dist: >3cm Neck ROM: Full Loose/Missing/Broken Teeth: No (patient denies any loose or broken teeth) Heart: S1S2 Lungs: CTAB Assessment and Plan Assessment Anesthesia Assessment: Anesthesia Plan Discussed and Chart Reviewed Final Anesthetic Review Family History of Problems with Anesthesia: No History of Problems with Anesthesia: No NPO: Yes ASA Class: II Final Preanesthetic Review: No Changes in Pt Med Stat, Meds/Allgs Chart Reviewed, Consent Obtained/Reviewed and Anes Risks/Benef Reviewed Patient Risk: Intermediate Procedure Risk: Low Anesthetic Plan Anesthetic Plan: MAC: and Agree w/ Assess. and Plan Disposition: Standard PACU
[2024-12-03 14:10] VITALS: BP 108/78; PULSE 99; RESP 18; TEMP 36.7; O2SAT 97
--- NOTE | 2024-12-03 14:19 | PM.OP ---
Brief Operative Note Date of Service: 12/03/24 Pre-op diagnosis: Dysphagia Post-op diagnosis: other (Hiatal hernia, Gastric polyps) Procedure: EGD with biopsies and Balloon dilation with 18 to 19 to 20mm balloon Surgeon: Sanket Hankins MD Anesthesia: MAC Was an [employer] Supervisor used for this Procedure?: No Estimated blood loss (mL): 2.0 Pathology: other (A. Gastric antral polyps B. Gastric antrum C. EG Junction at 35cm D. Esophagus 20 to 25cm) Condition: stable Disposition: PACU
[2024-12-03 14:23] VITALS: BP 116/73; PULSE 93; RESP 18; O2SAT 97
[2024-12-03 14:28] VITALS: BP 125/87; PULSE 89; RESP 16; TEMP 36.7; O2SAT 95
--- NOTE | 2024-12-03 14:54 | OP_ITS ---
DATE OF SERVICE: 12/03/2024 SURGEON: Sanket Hankins MD INDICATIONS: The patient presents for evaluation of gastroesophageal reflux and dysphagia. Full consent has been obtained from him for this, including risks of bleeding and perforation. PREOPERATIVE DIAGNOSIS: POSTOPERATIVE DIAGNOSIS: PROCEDURE PERFORMED: Esophagogastroduodenoscopy with balloon dilation of gastroesophageal junction and biopsies. ESTIMATED BLOOD LOSS: COMPLICATIONS: ANESTHESIA: Medication used, monitored anesthesia care. ASSISTANTS: SPECIMENS: PREOPERATIVE DIAGNOSES: Gastroesophageal reflux and dysphagia. POSTOPERATIVE DIAGNOSES: Gastroesophageal reflux and dysphagia, hiatal hernia, gastric polyps, rule out eosinophilic esophagitis, rule out Jacob esophagus. DESCRIPTION OF PROCEDURE: The patient was placed in the left lateral decubitus position. The Olympus video gastroscope was passed in the posterior oropharynx and upper esophagus under direct vision. The scope was passed slowly into the distal esophagus. The gastroesophageal junction appeared slightly irregular consistent with reflux, but there was no sign of any esophagitis nor any esophageal stricture. There was no evidence of any esophageal ring. The scope easily entered the stomach. There was a small hiatal hernia. The scope was advanced to the pylorus and the duodenum was cannulated to the descending portion. The duodenum including the bulb appeared normal without mass or ulceration. The scope was withdrawn back into the stomach. In the gastric antrum were several polypoid areas consistent with probable edema and inflammation from gastritis. They did not appear to be grossly adenomatous or other suspicious lesion. There was no ulceration. There was good peristalsis. Multiple biopsies were obtained from some of the polypoid areas. I also obtained separate biopsies from the gastric antrum itself. The scope was retroflexed visualizing the proximal stomach carefully, which appeared normal, without any sign of mass or ulceration. The scope was then straightened and withdrawn back to the esophagus. The gastroesophageal junction appeared open and without any definitive stricture, but given his symptomatology, I did dilate the gastroesophageal junction with a [employer] incremental balloon from 18 mm to 19 mm to 20 mm at the recommended pressure for between 30 and 60 seconds each. Post dilation, there was no appreciable heme nor change in the gastroesophageal junction. The balloon itself pulled easily into and out of the stomach in the fully inflated position. I did obtain biopsies at the gastroesophageal junction at 35 cm. Proximal to this, the esophageal mucosa appeared normal. There was no evidence of any proximal esophageal rings nor other abnormality. I did obtain biopsies between 20 and 25 cm to rule out eosinophilic esophagitis. The scope was withdrawn from the patient. He tolerated the procedure well and was returned to recovery area in stable condition. IMPRESSION: 1. Hiatal hernia, gastroesophageal reflux. 2. Rule out eosinophilic esophagitis. 3. Gastric polyps. 4. Rule out Helicobacter pylori. PLAN: The results of the biopsies will be checked. He does report that he has been feeling better on daily Prilosec rather than just using it p.r.n. I have instructed to continue using this on a daily basis to see if that helps to treat his dysphagia in the event we are dealing with some acid reflux and esophageal spasm. He does have an upper GI series scheduled for sometime in January, and I advised him to keep that appointment for now, but if things remain well, we can then cancel that as the time approaches. If he continues to have significant dysphagia without a clear etiology, then he may need further evaluation with esophageal motility studies. He will be seen in followup. He was advised not to use any aspirin or NSAIDs for 1 week. MD CHRISTIANE Santoro/LUIS EDUARDO / [id number]
== END 2024-12-03 14:43 | disposition home or self-care (01) ==
PROVIDERS: PCP Internal Medicine Medical Oncology; Visit Provider Internal Medicine
PROC: (CPT 43249; principal; 2024-12-03 13:10)
DX: R13.10 Dysphagia, unspecified (principal); K21.9 Gastro-esophageal reflux disease without esophagitis; K44.9 Diaphragmatic hernia without obstruction or gangrene; K31.7 Polyp of stomach and duodenum; I10 Essential (primary) hypertension; Z79.899 Other long term (current) drug therapy; Z79.1 Long term (current) use of non-steroidal anti-inflammatories (NSAID); Z88.8 Allergy status to other drugs, medicaments and biological substances; Z88.6 Allergy status to analgesic agent; Z88.5 Allergy status to narcotic agent; Z91.013 Allergy to seafood; Z90.49 Acquired absence of other specified parts of digestive tract
CPT/HCPCS: 43249; 43239; 88305; 88313; 88342; C1726; J2003; J2704

== ENCOUNTER 2025-01-15 06:06 | Outpatient (REF) | payer OTHER, SELFPAY ==
--- NOTE | ~2025-01-15 | XR_ITS ---
CLINICAL HISTORY: SHORTNESS OF BREATH --- Additional Notes or Special Instructions: WO Chest two view Comparison: None Findings: Relatively low lung volumes. Mild basilar vascular crowding. No consolidation, pulmonary edema, pleural effusion or pneumothorax. Normal cardiomediastinal silhouette. No acute fracture. Upper abdomen unremarkable. Impression: No acute cardiopulmonary process. Low lung volumes. This document has been electronically signed by: Liam Griffin MD on 01/15/2025 06:47:41
== END 2025-01-15 06:07 | disposition home or self-care (01) ==
LOC: HO.XRAY 06:06
PROVIDERS: PCP Internal Medicine Medical Oncology; Visit Provider Internal Medicine Medical Oncology
DX: R06.02 Shortness of breath (principal)
CPT/HCPCS: 71046

== ENCOUNTER → 2025-01-15 06:11 | Outpatient (BNV) | payer OTHER, SELFPAY | PROVIDERS: PCP Internal Medicine Medical Oncology; Visit Provider Radiology Diagnostic Radiology | DX: J98.4 Other disorders of lung (principal) | CPT/HCPCS: 71046 ==

== ENCOUNTER → 2025-01-21 13:50 | Outpatient (BNV) | payer OTHER, SELFPAY | PROVIDERS: PCP Internal Medicine Medical Oncology; Visit Provider Hospitalist | DX: R06.00 Dyspnea, unspecified (principal) | CPT/HCPCS: 94060; 94727; 94729 ==

== ENCOUNTER 2025-01-21 13:51 | Outpatient (REF) | payer OTHER, SELFPAY ==
--- NOTE | 2025-01-21 | PFT_ITS ---
Indication: Dyspnea Spirometry FEV1 to FVC 85%; FEV1 3.1 L; FVC 3.65 L. No significant response to bronchodilators noted. Lung Volumes Total lung capacity 91% predicted; expiratory reserve volume 40% predicted Diffusion Capacity DLCO 112% predicted Comparisons None Interpretation No obstructive nor restrictive ventilatory defects identified. No significant response to bronchodilators noted. Normal lung volumes except for decreasing the expiratory reserve volume secondary to an elevated BMI. Diffusing capacity is within normal limits. Clinical correlation warranted. MTDD
[2025-01-21 14:28] VITALS: PULSE 107; O2SAT 96
--- OUTSIDE RECORDS SUMMARY | 2025-01-21 15:05 | XMS_ITS | Clinical Summary ---
Author Organization [facility] Address [address] [place] [phone] Phone Care Team Providers Care Pilot Fuel Engineer Name Role Phone Physician, No Pcp Primary Care Provider Unavaila ble Allergies Active Allergy Reactions Criticality Noted Date Comments Indomethacin Unknown 09/21/2024 Clonazepam Hallucinations 09/21/2024 Suicidal and homicidal ideations Gabapentin 09/21/2024 Shellfish Derived Nausea And Vomiting Social History Tobacco Use Types Packs/Day Years [...] 98 09/21/2024 12:18 PM EST Temperature 36.4 C (97.5 F) 09/21/2024 12:18 PM EST Respiratory Rate 18 09/21/2024 12:18 PM EST [...] Td or Tdap) 01/19/2023 01/19/2013 COVID-19 Vaccine (2023-2 5 season) 2024 Cholesterol Screening (Lipid Panel) [...] on patient's age to complete this topic Insurance GENERIC Care Teams Pilot Fuel Engineer Relationship Specialty Start Date End Date Physician, No Pcp PCP - General 09/21/24
== END 2025-01-21 13:52 | disposition home or self-care (01) ==
LOC: HO.RESP 13:51
PROVIDERS: PCP Internal Medicine Medical Oncology; Visit Provider Internal Medicine Medical Oncology
DX: R06.02 Shortness of breath (principal)
CPT/HCPCS: 94010; 94640; 94727; 94729

== ENCOUNTER → 2025-01-29 14:26 | Outpatient (REF) | payer OTHER, SELFPAY ==
--- NOTE | 2025-01-29 14:34 | ECG_ITS ---
Test Reason : R07.89 Blood Pressure : */* mmHG Vent. Rate : 86 BPM Atrial Rate : 86 BPM P-R Int : 136 ms QRS Dur : 90 ms QT Int : 366 ms P-R-T Axes : 44 54 2 degrees QTcB Int : 437 ms Normal sinus rhythm Nonspecific T wave abnormality Abnormal ECG When compared with ECG of 17-Aug-2021 07:29, No significant change was found Referred By: Sanket Saleem Electronically Signed By: CHALO JENKINS
--- OUTSIDE RECORDS SUMMARY | 2025-01-29 14:49 | XMS_ITS | Clinical Summary ---
Author Organization [facility] Address [address] [place] [phone] Phone Care Team Providers Care Yeast Supervisor Name Role Phone Physician, No Pcp Primary [...] complete this topic Insurance GENERIC Care Teams Yeast Supervisor Relationship Specialty Start Date End Date Physician, No Pcp PCP - General 09/21/24
== END ==
LOC: HO.CARD 14:26
PROVIDERS: PCP Internal Medicine Medical Oncology; Visit Provider Internal Medicine Medical Oncology
DX: R07.89 Other chest pain (principal)
CPT/HCPCS: 93005

== ENCOUNTER → 2025-01-29 14:34 | Outpatient (BNV) | payer OTHER, SELFPAY | PROVIDERS: PCP Internal Medicine Medical Oncology; Visit Provider Internal Medicine | DX: R94.31 Abnormal electrocardiogram [ECG] [EKG] (principal); R07.89 Other chest pain | CPT/HCPCS: 93010 ==

== ENCOUNTER 2025-01-30 07:04 | Outpatient (REF) | payer OTHER, SELFPAY ==
--- OUTSIDE RECORDS SUMMARY | 2025-01-30 07:06 | XMS_ITS | Clinical Summary ---
Author Organization [facility] Address [address] [place] [phone] Phone Care Team Providers Care Wire Machine Cutter Name Role Phone Physician, No Pcp Primary [...] complete this topic Insurance GENERIC Care Teams Wire Machine Cutter Relationship Specialty Start Date End Date Physician, No Pcp PCP - General 09/21/24
[2025-01-30 07:22] LABS: MANUAL DIFF FLAG NO
[2025-01-30 07:44] LABS: Basophils Absolute Auto 0.1 X10*3/uL (0.0-0.2); Basophils Percent Auto 1.2 % (0-2); Eosinophils Absolute Auto 0.1 X10*3/uL (0.0-0.4); Eosinophils Percent Auto 1.9 % (0-4); Hemoglobin 15.9 g/dl (14.0-18.0); Imm Gran Abs Auto 0.04 X10*3/uL (0.00-0.03); Imm Gran Pct Auto 0.8 % (0.0-0.4); Lymphocytes Absolute Auto 1.3 X10*3/uL (1.2-4.9); Lymphocytes Percent Auto 25.7 % (20-40); Mean Corpuscular Hemoglobin 32.1 pg (27.0-33.0); Mean Corpuscular Volume 86.7 fL (80.0-98.0); Mean Platelet Volume 10.3 fL (9.4-12.4); Monocytes Absolute Auto 0.6 X10*3/uL (0.1-1.2); Monocytes Percent Auto 11.1 % (2-11); Neutrophils Percent Auto 59.3 % (45-73); Platelet Count 248 X10*3/uL (160-400); Red Blood Count 4.96 X10*6/uL (4.60-5.80); Red Cell Distribution Width 12.1 % (11.0-16.0); White Blood Count 5.1 X10*3/uL (4.8-10.8)
[2025-01-30 07:55] LABS: D Dimer High Sensitivity < 150 NG/ML
[2025-01-30 08:07] LABS: Alanine Aminotransferase 52 U/L (0-40); Albumin Level 4.7 g/dL (3.5-5.0); Alkaline Phosphatase 88 U/L (39-117); Anion Gap 13 (12-20); Aspartate Amino Transferase 28 U/L (5-37); Bilirubin Total 0.4 mg/dL (0.0-1.0); Blood Urea Nitrogen 19 mg/dL (9-16); Calcium 9.2 mg/dL (8.4-10.2); Carbon Dioxide 22 mmol/L (22-29); Chloride 109 mmol/L (96-108); Cholesterol 190 mg/dL (<200); Estimated Glomerular Filt Rate > 60; Glucose Fasting 118 mg/dL (60-99); HDL Cholesterol 34 mg/dL (>40); LDL Cholesterol Calculated 124 mg/dL (<100); Potassium 4.4 mmol/L (3.3-5.1); Sodium 140 mmol/L (135-145); Total Protein 7.3 g/dL (6.5-8.0); Triglycerides 160 mg/dL (<150)
[2025-01-30 08:33] LABS: Prostate Specific Antigen 0.79 ng/mL (<0.05-4.0)
== END 2025-01-30 07:05 | disposition home or self-care (01) ==
LOC: HO.LAB 07:04
PROVIDERS: PCP Internal Medicine Medical Oncology; Visit Provider Internal Medicine Medical Oncology
DX: B36.0 Pityriasis versicolor (principal); E66.9 Obesity, unspecified; N40.0 Benign prostatic hyperplasia without lower urinary tract symptoms; I26.99 Other pulmonary embolism without acute cor pulmonale; Z12.5 Encounter for screening for malignant neoplasm of prostate
CPT/HCPCS: 36415; 80053; 80061; 84153; 85025; 85379

== ENCOUNTER → 2025-03-25 07:58 | Outpatient (REF) | payer OTHER, SELFPAY ==
--- OUTSIDE RECORDS SUMMARY | 2025-01-29 10:00 | XMS_ITS ---
Author Organization Sanket Saleem III, MD Address [address] [place] [address] [place] [address] Care Team Providers Care Judo Teacher Name Role Phone Sanket Saleem Primary Care Provider Allergies Allergen (clinical drug ingredient) Drug/Non Drug Allergy documented on EMR Reaction Allergy Type Onset Date Status naproxen Naproxen Unknown Drug Allergy Active clonazepam Klonopin Unknown Drug Allergy Active indomethacin Indomethacin Unknown Drug Allergy A ctive indomethacin Indocin Unknown Drug Allergy Acti ve ibuprofen Ibuprofen Unknown Drug Allergy Active Cymbalta Unknown Drug Allergy Active Shellfish (FN) Shellfish-derived Products Unknown Drug Allergy Active amlodipine Amlodipine Unknown Drug Allergy Activ e gabapentin Neurontin Unknown Drug Allergy Active Results Component Value Reference Range Notes Lipid Panel (Not yet reviewe d by provider) Interpretation: Performing Lab:[facility], [address] [place] [phone] Notes/Report: Triglycerides 160 <150 mg/dL Desirable Triglyceride: [...] Problem Status W/U Status Risk Notes Problem [id number] Dyspnea on exertion (R06.09) Active confirmed The [...] Date Provider Diagnosis Sanket Saleem III, MD [address] [place] [address] [place] [address] 01/29/2025 Sanket Saleem Pityriasis versicolo r B36.0 [...] CBC w DIFF 01/29/2025 D Dimer 01/29/2025 Lipid Panel 01/29/2025 ECG 12 lead EKG 01/29/2025 Next Appt Details Follow Up: 2 Weeks, Reason: ov Provider Name:Sanket Saleem, 04/09/2025 02:00:00 PM, [address] [place] [address] [address] [facility] [place], [address], Progress Notes * Vicente LINDSAYDOB:1970 (54 yo M)Acc No.[id number]:01/29/2025 Progress Notes Patient: Vicente FRANCIS Provider: Christopher Saleem MD :1970 A ge:54 Y S ex:Male Date:01/29/2025 Address:[address] [place] [phone] Subjective: * Chief Complaints: * D yspneaHypertensionPityriasisLow [...] Medical History: * Surgical History: c holecystectomy [id number] 1998vasectomy 07/2018No history * Hospitalization/Major Diagno stic [...] Charli roque has been twice currently to [place] since 2011. His first 's name was Erika. He has a daughter Tierra from the first marriage and one child, Samuel, from the current one. 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 He exercises 5 times a week and has no restrictions on his diet. He no longer smokes. He has had no exposure to asbestos. He was born in [facility]. A great uncle had throat cancer [...] Saleem MD Date: 0 01/29/2025 Generated for Chema singh/Anaid/Terra on: 0 03/25/2025 08:01 AM EDT History and Physical Notes * [...]
--- NOTE | 2025-03-25 08:00 | CA_ITS ---
Acquisition Time: 2025-03-25 08:09:10 Total Exercise Time: 00:09:08 Test Indications: Dyspnea CP Medications: VALSARTAN AMLODIPINE LISINOPRIL FLUCONZALE AMITRIPTYLINE Protocol: NILDA Max HR: 144 BPM 85% of Pred: 168 BPM Max BP: 214/106 mmHG Max Work Load: 10.2 METS Exercise stress test with exercise 9 mins 8 secs of Nilda Protocol, achieving 85% MPHR, with reports of mild SOB, 4/10 burning chest pain at baseline that pt states is constant and unchanged with exercise, with isolated PVCs, with hypertensive response to exercise- max BP 214/106, started at 166/96. Without any EKG changes meeting criteria for ischemia. In recovery, breathing retruned to baseline and chest discomfort remianed same. BP improved to baseline at 160/98. Test reviewed with Dr. Pollack. Referred By: Sanket Saleem Electronically Signed By: Efren Hardin
--- OUTSIDE RECORDS SUMMARY | 2025-03-25 08:01 | XMS_ITS | Patient Health Record ---
Author Organization [facility] Address [address] [place] [address] Care Team Providers Care Operational Risk Consultant Name Role Phone Sanket Saleem MD Primary Care Provider Sanket Orona Unavailable [phone] Allergies Allergen (clinical drug ingredient) Drug/Non Drug Allergy documented on EMR Reaction Allergy Type Onset Date Status clonazepam Klonopin Unknown Drug Allergy Active indomethacin Indomethacin Unknown Drug Allergy A ctive ibuprofen Ibuprofen Unknown Drug Allergy Active duloxetine Cymbalta Unknown Drug Allergy Active Shellfish (FN) shrimp (uncoded) Unknown Allergy Active morphine Morphine chest pain Drug Allergy Active metoprolol Metoprolol Unknown Drug Allergy Activ e lisinopril Lisinopril Unknown Drug Allergy Activ e amlodipine amLODIPine Unknown Drug Allergy Activ e gabapentin Neurontin Unknown Drug Allergy Active Results Component Value Reference Range Notes Pathology (Not yet reviewed by provider) Interpretation: Performing Lab:[facility], [address] [place] [id number] Notes/Report: Reason For Referral No Information Medications Medication SIG (Take, Route, Frequency, Duration) Notes Start Date End Date Status Valsartan 320 MG TAKE 1 TABLET BY MOUTH EVERY DAY Oral for 90 Active Amitriptyline HCl 25 MG 1 tablet at bedt pilar Orally Once a day For insomnia Active PriLOSEC OTC 20 MG 1 tablet 1/2 to 1 hour before morning meal Orally Once a day Active tylenol Active Aleve 220 MG 1 tablet with food o r milk as needed Orally every 12 hrs Active Social History Alcohol Screen Question Answer Notes Did you have a drink containing alcohol in the p ast year? No Points 0 Interpretation Negative Section Notes: Nonsmoker; no sig alcohol Nonsmoker; no sig alcohol Nonsmoker; no sig alcohol Nonsmoker; no sig alcohol Problems Problem Type SNOMED Code ICD Code Onset Dates Problem Status W/U Status Risk Notes Problem Screening for malignant neoplasm of colon (520369810) Encounter for screening for malignant neoplasm of colon (Z12.11) Active confirmed Problem Pre-procedure evaluation check (817226335) Encounter for other preprocedural examination (Z01.818) Active confirmed Problem Diverticular disease of colon (116214065) Diverticulosis of large intestine without perforation or abscess without bleeding (K57.30) Active confirmed Problem 371821004 Irritable bowel syndrome with diarrhea (K58.0) Active confirmed Problem Right upper quadrant pain (539538703) Right upper quadrant pain (R10.11) Active confirmed Problem Dysphagia (41397262) Dysphagia (R13.10) Active confirmed Problem Gastroesophageal reflux disease (539444198) GERD (gastroesophageal reflux disease) (K21.9) Active confirmed Vital Signs Blood pressure diastolic 11 mm Hg 11/19/2024 Height 64 in 11/19/2024 Blood pressure systolic 111 mm Hg 11/19/2024 Weight 200 lbs 11/19/2024 BMI 34.33 kg/m2 11/19/2024 Procedures Procedure Date Ordered Date Performed Result Body Sit e UPPER GI ENDOSCOPY BALLOOON DILATION OF ESOPH 11/19/2024 N/A Encounters Encounter Location Date Provider Diagnosis [facility] [address] [place] [id number] 12/03/2024 Sanket Hankins Gastro-esophageal reflux disease without esophagitis K21.9 ; Gastric polyps K31.7 and Hiatal hernia K44.9 [facility] [address] [place] [phone] 11/19/2024 Sanket Hankins Dysphagia R13.10 and GERD (gastroesophageal reflux disease) K21.9 [facility] [address] [place] [phone] 07/13/2024 Sanket Hankins [facility] [address] [phone] 12/07/2024 Sanket Hankins Assessments Encounter Date Diagnosis (ICD Code) Assessment Notes Treatment Notes Treatment Clinical Notes Section Notes 12/03/2024 Gastro-esophage al reflux disease without esophagitis (ICD-10 - K21.9) 12/03/2024 Gastric polyps (ICD-10 - K31.7) 11/19/2024 Dysphagia (ICD-10 - R13.10) Overall, Neftali appears well from a clinical standpoint. His symptoms of the intermittent dysphagia are most likely consistent with that of a possible esophageal ring, esophageal stricture in relation to his reflux, and/or esophageal spasm in relation to his reflux. I doubt this represents anything such as an esophageal neoplasm or eosinophilic esophagitis. I have recommended an upper endoscopy with possible balloon dilation for the near future. Full consent has been obtained for that, including risks of bleeding and perforation. The procedure will be done with monitored anesthesia care. I did advise him to continue his daily PPI and to continue to eat slowly and carefully in the meantime. If the upper endoscopy is nonrevealing I would plan to obtain proximal esophageal biopsies to rule out eosinophilic esophagitis. He may need eventual esophageal motility studies as well. He does have the barium swallow scheduled for January and I did advise him to keep that scheduled for the time being. If we are able to find a cause of his dysphagia and treat that successfully then we could most likely cancel the barium swallow at that time. He was advised to stop his Aleve for about 1 week before the procedure. We did review his negative screening colonoscopy last year and the need for a follow-up screening colonoscopy in 2033. Neftali was comfortable with this plan. Thank you again for allowing me to participate in Neftali's care. I shall continue to keep you advised of his progress. 11/19/2024 GERD (gastroesophage al reflux disease) (ICD-10 - K21.9) Overall, Neftali appears well from a clinical standpoint. His symptoms of the intermittent dysphagia are most likely consistent with that of a possible esophageal ring, esophageal stricture in relation to his reflux, and/or esophageal spasm in relation to his reflux. I doubt this represents anything such as an esophageal neoplasm or eosinophilic esophagitis. I have recommended an upper endoscopy with possible balloon dilation for the near future. Full consent has been obtained for that, including risks of bleeding and perforation. The procedure will be done with monitored anesthesia care. I did advise him to continue his daily PPI and to continue to eat slowly and carefully in the meantime. If the upper endoscopy is nonrevealing I would plan to obtain proximal esophageal biopsies to rule out eosinophilic esophagitis. He may need eventual esophageal motility studies as well. He does have the barium swallow scheduled for January and I did advise him to keep that scheduled for the time being. If we are able to find a cause of his dysphagia and treat that successfully then we could most likely cancel the barium swallow at that time. He was advised to stop his Aleve for about 1 week before the procedure. We did review his negative screening colonoscopy last year and the need for a follow-up screening colonoscopy in 2033. Neftali was comfortable with this plan. Thank you again for allowing me to participate in Neftali's care. I shall continue to keep you advised of his progress. 12/03/2024 Hiatal hernia (ICD-10 - K44.9) Plan Of Treatment Pending Test Test Name Order Date UPPER GI ENDOSCOPY BALLOOON DILATION OF ESOPH 11/19/2024 CELIAC PANEL #10 08/02/2015 NUC HIDA SCAN 05/05/2015 Pathology 12/03/2024 Future Test Test Name Order Date COLONOSCOPY 10/24/2023 Next Appt Details Provider Name:Sanket Duenas Hankins , 05/11/2025 01:00:00 PM, [address], [address], [place], [address], Insurance Providers Payer Name Payer Address Payer Phone Subscriber Number Group Number Insured Name Patient Relationship to Insured Coverage Start Date Coverage End Date [facility] [address] [place] [phone] [id number] DONELL LÓPEZ Self - patient is the insured Medical (General) History Medical History History ICD Code Denies [place],DM,CVA,Lung disease,renal dise ase Hypertension Torn rotator cuff on the left Negative screening colonoscopy in 02/2024 GERD Surgical History Surgery Date(Month/Year) gallbladder--- for presumed acalculous cholecystitis with Dr. Reanna Ron 06/2015 appendectomy 1998
--- OUTSIDE RECORDS SUMMARY | 2025-03-25 08:01 | XMS_ITS | Clinical Summary ---
Author Organization [facility] Address [address] [place] [phone] Phone Care Team Providers Care Craft Manager Name Role Phone Physician, No Pcp Primary [...] 01/19/2013 COVID-19 Vaccine (2023-2 5 season) 2024 Depression Screening 08/05/2024 Cholesterol Screening (Lipid Panel) 09/21/2024 Colorectal Cancer Screening: Colonoscopy 09/21/2024 HIV Screening 09/21/2024 Hepatitis C Screening 09/21/2024 Social Influencers of Health Screening 09/21/2024 Influenza Vaccine (#1) 2025 HIB Vaccines Aged Out No longer [...] complete this topic Insurance GENERIC Care Teams Craft Manager Relationship Specialty Start Date End Date Physician, No Pcp PCP - General 09/21/24
== END ==
LOC: HO.CARD 07:58
PROVIDERS: Visit Provider Internal Medicine Medical Oncology
DX: R07.89 Other chest pain (principal); Z79.899 Other long term (current) drug therapy
CPT/HCPCS: 93017

== ENCOUNTER → 2025-03-25 08:00 | Outpatient (BNV) | payer OTHER, SELFPAY | DX: I49.3 Ventricular premature depolarization (principal); R07.89 Other chest pain; R03.0 Elevated blood-pressure reading, without diagnosis of hypertension | CPT/HCPCS: 93016; 93018 ==

== ENCOUNTER 2025-03-31 15:42 | Outpatient (AMB) | payer OTHER, SELFPAY ==
--- OUTSIDE RECORDS SUMMARY | 2024-12-03 09:30 | XMS_ITS ---
Author Organization [facility] Address [address] [place] [phone] Care Team Providers Care Construction Sales Representative Name Role Phone Sanket Saleem MD Primary Care Provider Sanket Orona [phone] REASON FOR VISIT gerd,dysphagia Encounters Encounter Location Date Provider Diagnosis [facility] [place] [facility] [address] [place] [phone] 12/03/2024 Sanket Hankins Gastro-esophageal reflux disease without esophagitis K21.9 ; Gastric polyps K31.7 and Hiatal hernia K44.9 Assessments Encounter Date Diagnosis (ICD Code) Assessment Notes Treatment Notes Treatment Clinical Notes Section Notes 12/03/2024 Gastro-esophagea l reflux disease without esophagitis (ICD-10 - K21.9) 12/03/2024 Gastric polyps (ICD-10 - K31.7) 12/03/2024 Hiatal hernia (ICD-10 - K44.9) Plan Of Treatment Next Appt Details Provider Name:Sanket Hankins , 05/11/2025 01:00:00 PM, [address] [place] [address], Suite [facility], [place], [address], Progress Notes * DONELL LÓPEZDOB:1970 (54 yo M)Acc No.[id number]:12/03/2024 EGD/MAC Patient: DONELL FRANCIS Provider: Christopher Hankins MD :1970 A ge:54 Y S ex:Male Date:12/03/2024 Address:[address] [place], [place] [phone] Pcp:Sanket Saleem MD Subjective: * Chief Complaints: * 1 . Gerd,dysphagia. * Medical History: Objective: * Vitals: Assessment: * Assessment: 1. G radha-esophageal reflux disease without esophagitis - K21.9 (Primary) 2 .?Gastric polyps - K31.7 3 . H iatal hernia - K44.9 Plan: * Treatment: * Procedure Codes: 4 3249 ESOPH ENDOSCOPY, DILATION, 17545 UPPER GI ENDOSCOPY, BIOPSY, Modifiers: 59 * * The named appointment provid er may or may not be the originator of this progress note, and it is not deemed complete until electronically signed by the appointment provider. Sign off status: Pending * Provider: Christopher Hankins MD Date: 0 12/03/2024 Generated for Chema singh/Anaid/Madelineitting on: 0 03/31/2025 04:51 PM EDT
--- OUTSIDE RECORDS SUMMARY | 2025-02-03 05:42 | XMS_ITS ---
Author Organization Sanket Saleem III, MD Address [address] [place] [address] [place] [address] Care Team Providers Care Volunteer Recruitment Coordinator Name Role Phone Sanket Saleem Primary Care Provider REASON FOR VISIT Stress test Order Social History Sex Assigned At : Social History Observation Description Sex Assigned At Male Encounters Encounter Location Date Provider Diagnosis Sanket Saleem III, MD [address] [place] [address] [place] [address] 02/03/2025 Sanket Saleem Atypical chest pain R07.89 Assessments Encounter Date Diagnosis (ICD Code) Assessment Notes Treatment Notes Treatment Clinical Notes 02/03/2025 Atypical chest pain (ICD-10 - R07.89) Plan Of Treatment Pending Test Test Name Order Date Stress Test 02/03/2025 Next Appt Details Provider Name:Sanket Saleem, 04/09/2025 02:00:00 PM, [address] [place] [address] [place], [address], Progress Notes * Vicente LINDSAYDOB:1970 (54 yo M)Acc No.[id number]:02/03/2025 Patient: Vicente FRANCIS :1970 A ge:54 Y S ex:Male Address:[address] [place] [address], [address] Subjective: * Chief Complaints: * S tress test Order * Medical History: * Surgical History: * Hospitalization/Major Diagno stic Procedure: * Medications: Objective: * Vitals: * Physical Examination: Assessment: * Assessment: 1. A typical chest pain - R07.89 Plan: * Treatment: * Procedure Codes: * true * Date: Generated for Chema singh/Anaid/Terra on: 0 03/31/2025 04:51 PM EDT
--- OUTSIDE RECORDS SUMMARY | 2025-03-25 05:35 | XMS_ITS ---
Author Organization Sanket Saleem III, MD Address [address] [place] [address] [place] [address] Care Team Providers Care Community Service Aide Name Role Phone Sanket Saleem Primary Care Provider REASON FOR VISIT High BP Social History Sex Assigned At : Social History Observation Description Sex Assigned At Male Encounters Encounter Location Date Provider Diagnosis Sanket Saleem III, MD [address] [place] [address] [place] [address] 03/25/2025 Sanket Saleem Plan Of Treatment Next Appt Details Provider Name:Sanket Saleem, 04/09/2025 02:00:00 PM, [address] [place] [address] [address] [facility] [place], [address], Progress Notes * Vicente LINDSAYDOB:1970 (54 yo M)Acc No.[id number]:03/25/2025 Patient: Vicente FRANCIS :1970 A ge:54 Y S ex:Male Address:[address] [place] [address], [phone] * true * Date: Generated for Printi ng/Faxing/eTransmitting on: 0 03/31/2025 04:51 PM EDT
--- OUTSIDE RECORDS SUMMARY | 2025-03-30 09:00 | XMS_ITS ---
Author Organization Sanket Saleem III, MD Address [address] [place] [address] [place] [address] Care Team Providers Care Catalogue Clerk Name Role Phone Sanket Saleem Primary Care Provider [phone] Allergies Allergen (clinical drug ingredient) Drug/Non Drug [...] Drug Allergy Active REASON FOR VISIT Hypertension unstable Medications Medication SIG (Take, Route, Frequency, Duration) Notes Start Date End Date Status Atenolol 50 MG 1 tablet Orally Once a day for 30 days 03/30/2025 Active Tylenol 325 MG 2 tablets as needed Orally every 6 hrs Active Amitriptyline HCl 50 MG 1 tablet Orally Once a day Active Fluconazole 100 MG 1 tablet Orally weekly 06/05/20 24 Active Lisinopril 10 MG 1 tablet Orally Once a day 04/03/2024 Active amLODIPine Besylate 2.5 MG TAKE 1 TABLET BY MOUTH DAILY Oral Active Clobetasol Propionate 0.05 % APPLY TOPIC [...] Date Provider Diagnosis Sanket Saleem III, MD [address] [place] [address] [place] [address] 03/30/2025 Sanket Saleem Pityriasis versicolo r B36.0 Assessments Encounter Date Diagnosis (ICD Code) Assessment Notes Treatment Notes Treatment Clinical Notes 03/30/2025 Pityriasis versicolor (ICD-10 - B36.0) His skin is much improved today and no change in his regimen was needed. He is no longer taking medication for this. There was very little rash present At his request I refilled his triamcinolone. Plan Of Treatment Medication Medication Name Sig Start Date Stop Date Notes Atenolol 50 MG 1 tablet Orally Once a day for 30 days 03/30/2025 Tylenol 325 MG 2 tablets as needed Orally every 6 hrs Amitriptyline HCl 50 MG 1 tablet Orally Once a day Fluconazole 100 MG 1 tablet Orally weekly 06/05/2024 Lisinopril 10 MG 1 tablet Orally Once a day 04/03/2024 amLODIPine Besylate 2.5 MG TAKE 1 TABLET BY MOUTH DAILY Oral Clobetasol Propionate 0.05 % APPLY TOPIC ALLY TO THE AFFECTED AREA TWICE DAILY Betamethasone Dipropionate A ug 0.05 % APPLY TOPICALLY TO THE AFFECTED AREA EVERY DAY Valsartan 320 MG TAKE 1 TABLET BY TO TH EVERY DAY Next Appt Details Follow Up: As Scheduled, Rocío son: Annual Exam Provider Name:Sanket Saleem, 04/09/2025 02:00:00 PM, [address] [place] [address] [address], [place], [address], Progress Notes * Vicente LINDSAYDOB:1970 (54 yo M)Acc No.[id number]:03/30/2025 Progress Notes Patient: Vicente FRANCIS Provider: Christopher Saleem MD :1970 A ge:54 Y S ex:Male Date:03/30/2025 Address:[address] [place] [address], [id number] Subjective: * Chief Complaints: * 1 . Hypertension unstable. * HPI: C OVID-19 Screening: more migraines, neurol is mcgregor noho, neurotec,, badk and abd pain uis still there. Questions H ave you had any new onset fever, chills, cough, congestion, sore throat, shortness of breath, muscle aches? N o * ROS: G eneral/Constitutional: pain o nly normal aches and pains. C hills d enies.?Fatigue a dmits. F ever d enies. E [...] have been noted. G enitourinary: Frequent urination d enies. M usculoskeletal: Muscle aches d enies. P ainful joints d enies. S ciatica d enies. W eakness d enies. S kin: Itching d enies. R silvana d enies. S kin lesion(s)?denies. N eurologic: Difficulty speaking d enies. D izziness d enies.?Headache d enies. L ow back pain d enies. P sychiatric: Depressed mood d enies. * Medical History: R ight upper abdominal pain, Pityriasis versicolor, Migraine with aura, Impaired fasting glucose, Intervertebral disc disorder of lumbar region with myelopathy, Prepatellar bursitis 2015, EKG 05/04/14 SR, inferior T wave changes, nonspecific, borderline, 2012 sprained left wrist, History of insomnia, June 2016 borderline splenomegaly, 04/20 MRI [facility] minor degenerative disc disease, 04/20 [facility] thoracic spine minor desiccation thoracic disc spaces T7-T11, History of left facial weakness, History of atypical chest pain, obesity BMI 30, 09/2016, Former smoker. * Surgical History: c holecystectomy 2015-06-08, appendectomy 1997, vasectomy 07/2018, No history . * Hospitalization/Major Diagno stic Procedure: N o history . * Family History: F ather: alive 70 [...] Charli roque has been twice currently to [place] since 2011. His first 's name was Erika. He has a daughter Tierra from the first marriage and one child, Samuel, from the current one. 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 He works for [employer]. He exercises 5 times a week and has no restrictions on his diet. He no longer smokes. He has had no exposure to asbestos. He was born in [facility]. A great uncle had throat cancer and one aunt had brain cancer. * Medications: T aking Valsartan 320 MG Tablet TAKE 1 TABLET BY MOUTH EVERY DAY , Taking Betamethasone Dipropionate Aug 0.05 % Lotion APPLY TOPICALLY TO THE AFFECTED AREA EVERY DAY , Taking Clobetasol Propionate 0.05 % Ointment APPLY TOPICALLY TO THE AFFECTED AREA TWICE DAILY , Taking Amitriptyline HCl 50 MG Tablet 1 tablet Orally Once a day , Taking Tylenol 325 MG Tablet 2 tablets as needed Orally every 6 hrs , Taking Fluconazole 100 MG Tablet 1 tablet Orally weekly , Discontinued amLODIPine Besylate 2.5 MG Tablet TAKE 1 TABLET BY MOUTH DAILY Oral , Discontinued Lisinopril 10 MG Tablet 1 tablet Orally Once a day , Discontinued Fluconazole 100 MG Tablet 1 tablet Orally weekly , Discontinued Fluconazole 100 MG Tablet 1 tablet Orally once a week , Medication List reviewed and reconciled with the patient * Allergies: N eurontin, Klonopin, Cymbalta, Indocin, Ibuprofen, Indomethacin, Naproxen, Shellfish-derived Products, Amlodipine. Objective: * Vitals: H t: 63 in, Wt: 206, BMI:36.49, BP: 148/88, HR: 90, RR: 16, Temp: 97.5, Wt-k.44. * Examination: G eneral Examination: GENERAL APPEARANCE: p leasant, well nourished, well developed, in no acute distress, calm and relaxed. HEAD: a traumatic, normocephalic. EYES: e cash, [...] sounds normal, no ascites, no organomegaly, no mass. RECTAL EXAM: n ot examined. MUSCULOSKELETAL: e xtremities unremarkable, no clubbing, cyanosis or edema. PERIPHERAL PULSES: n ormal. NEUROLOGIC: a lert and oriented, cranial nerves 2-12 grossly intact, deep tendon reflexes 2+ symmetrical, motor strength normal upper and lower extremities, sensory exam intact. PSYCH: a lert, oriented. Assessment: * Assessment: 1. P ityriasis versicolor - B36.0 N otes :His skin is much improved today and no change in his regimen was needed. He is no longer taking medication for this. There was very little rash present At his request I refilled his triamcinolone. Plan: * Treatment: 2. O thers Continue Valsartan Tablet, 320 MG, TAKE 1 TABLET BY MOUTH EVERY DAY; C ontinue Betamethasone Dipropionate Aug Lotion, 0.05 %, APPLY TOPICALLY TO THE AFFECTED AREA EVERY DAY; C ontinue Clobetasol Propionate Ointment, 0.05 %, APPLY TOPICALLY TO THE AFFECTED AREA TWICE DAILY. * Preventive Medicine: Counseling: C are goal [...] done: Medical or Other reason not done * Follow Up: A s Scheduled (Reason: Annual Exam) * Images: * The named appointment provid er may or may not be the originator of this progress note, and it is not deemed complete until electronically signed by the appointment provider. Sign off status: Pending * Provider: Christopher Saleem MD Date: 03/30/2025 Generated for Chema singh/Anaid/Madelineitting on: 03/31/2025 04:51 PM EDT History and Physical Notes * HPI (History of Present Illness) Category Sub-Category Detail Notes COVID-19 Screening Questions Have you had any new onset fever, chills, cough, congestion, sore throat, shortness of breath, muscle aches?: No Examination Category Sub-Category Detail Notes General Examination GENERAL APPEARANCE: pleasant , well nourished, well developed, in no acute distress, calm and relaxed HEAD: atraumatic, normocep halic EYES: eomi, perrla, anicte renaldo, conjugate EARS: normal NOSE: septum intact NECK/THYROID: no jugular venous di stention, no carotid bruit, thyroid normal HEART: no clicks, gallops, murmurs, or rubs, regular rhythm, S1, S2 normal, no s3, or vascular bruits LUNGS: clear to auscultatio n ABDOMEN: bowel sounds normal, no ascites, no organomegaly, no mass NEUROLOGIC: alert and oriented, cranial nerves 2-12 [...]
--- NOTE | 2025-03-31 15:44 | MHC.OFFVIS ---
Vital Signs 03/31/25 15:45 Height 5 ft 4 in Weight 199 lb BMI 34.2 BP 160/97 H Blood Pressure Location Rt brachial Position Sitting Pulse 100 Pulse Source Pulse Oximeter Pulse Oximetry (%) 96 Oxygen Delivery Method Room Air Intake Visit Reasons: dyspnea Allergies naproxen Allergy (Intermediate, Verified 03/31/25 15:50) SOB, oral lesions clonazepam (CLONAZEPAM) Allergy (Unknown, Verified 03/31/25 15:50) UNKNOWN duloxetine (From CYMBALTA) Allergy (Unknown, Verified 03/31/25 15:50) UNKNOWN gabapentin (From NEURONTIN) Allergy (Unknown, Verified 03/31/25 15:50) UNKNOWN ibuprofen (IBUPROFEN) Allergy (Unknown, Verified 03/31/25 15:50) UNKNOWN, SOB, oral lesions indomethacin (INDOMETHACIN) Allergy (Unknown, Verified 03/31/25 15:50) NAUSEA/VOMITING, chest pain shellfish derived (SHELLFISH DERIVED) Allergy (Unknown, Verified 03/31/25 15:50) UNKNOWN amlodipine Allergy (Verified 03/31/25 15:50) Unknown lisinopril Allergy (Verified 03/31/25 15:50) Unknown metoprolol Allergy (Verified 03/31/25 15:50) Unknown morphine Allergy (Verified 03/31/25 15:50) Chest Pain shrimp Allergy (Verified 03/31/25 15:50) Unknown HPI HPI dyspnea: Details: 53-year-old gentleman, nonsmoker, previously referred for obstructive sleep apnea, but did not want to continue testing, now returns complaining of intermittent episodes of dyspnea associated with exposure to environmental allergies or while plain trombone, likely related to drying of pulmonary mucosa. Patient is currently on no ICS therapy. 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 Review of Systems Const Denies daytime sleepiness, Denies excessive sweating, Denies fatigue, Denies fever(s), Denies lethargy, Denies malaise, Denies night sweats, Denies snoring and Denies weight loss Eyes Denies blurry vision and Denies itchy eyes ENT Denies nasal congestion, Denies post nasal drip, Denies sinus pain, Denies sinus pressure and Denies other ( Thrush) Card Denies chest pain, Denies pedal edema, Denies dyspnea, Reports dyspnea on exertion, Denies orthopnea and Denies paroxysmal nocturnal dyspnea Resp Denies cough, Denies hemoptysis, Denies excessive phlegm production, Denies dyspnea, Reports dyspnea on exertion, Denies snoring and Denies wheezing GI Denies abdominal pain and Denies heartburn Musc Denies myalgias, Denies arthralgias and Denies joint swelling Skin/Breast Denies rash Neuro Denies memory loss and Denies seizure-like activity Psych Denies abnormal sleep pattern, Denies anxiety and Denies memory loss Endo Denies excessive sweating, Denies fatigue and Denies heat intolerance Poli/Lymph Denies easy bruising Aller/Immun Denies itchy eyes, Denies seasonal rhinorrhea and Denies wheezing Physical Exam Vital Signs: Last Vital Signs Pulse 100 03/31/25 15:45 BP 160/97 H 03/31/25 15:45 Pulse Ox 96 03/31/25 15:45 Oxygen Delivery Method Room Air 03/31/25 15:45 BMI result Body Mass Index 34.2 Const General: no acute distress and alert Nutritional Appearance: not obese Orientation/consciousness: Other orientation findings ( oriented) HEENT Head: Yes atraumatic Eyes General: appearance normal, both eyes and all related structures Sclerae: sclerae normal EOM: EOMs intact bilaterally Neck Neck: Yes supple Lymphatic: no lymphadenopathy noted Resp Effort & Inspection: normal respiratory effort and no use of accessory muscles Auscultation: clear to auscultation bilaterally Cardio Rate: regular rate Rhythm: regular rhythm Heart sounds: no gallops, no murmurs and no rubs Skin General skin exam: other ( warm) Extrem General: No clubbing, No cyanosis and No edema Assessment & Plan Assessment & Plan (1) Environmental allergies: Code(s): Z91.09 - Other allergy status, other than to drugs and biological substances Category: Medical Plan: Will obtain IgE level, CBC with differential, and RAST panel for further evaluation. (2) Reactive airway disease: Code(s): J45.909 - Unspecified asthma, uncomplicated Category: Medical Plan: Suspicion for underlying asthma. Will start on empiric Breo and obtain full PFT. Orders: Orders Resp Allergy Profile Region I Today Z91.09 - Other allergy status, other than to drugs and biological substances RT pft w methacholine Today Z91.09 - Other allergy status, other than to drugs and biological substances Complete Blood Count Auto Diff Today Z91.09 - Other allergy status, other than to drugs and biological substances Coding Level of Care Code Est Pt Level 4 (03508) Diagnoses Environmental allergies Z91.09 Reactive airway disease J45.909
[2025-03-31 15:45] VITALS: BP 160/97; PULSE 100; O2SAT 96; BMI 34.2
--- OUTSIDE RECORDS SUMMARY | 2025-03-31 16:51 | XMS_ITS | Patient Health Record ---
Author Organization [facility] Address [address] [place] [address] Care Team Providers Care Hydro Mechanic Name Role Phone Sanket Saleem MD Primary Care Provider Sanket Orona Unavailable [phone] Allergies Allergen (clinical drug ingredient) Drug/Non Drug [...] (Not yet reviewed by provider) Interpretation: Performing Lab:[facility], [address] [place] [phone] Notes/Report: Reason For Referral No Information Medications [...] Problem Screening for malignant neoplasm of colon (240008405) Encounter for screening for malignant neoplasm of colon (Z12.11) Active confirmed Problem Pre-procedure evaluation check (529311899) Encounter for other preprocedural examination (Z01.818) Active confirmed Problem Diverticular disease of colon (070245160) Diverticulosis of large intestine without perforation or abscess without bleeding (K57.30) Active confirmed Problem 316123730 Irritable bowel syndrome with diarrhea (K58.0) Active confirmed Problem Right upper quadrant pain (823488561) Right upper quadrant pain (R10.11) Active confirmed Problem Dysphagia (84039152) Dysphagia (R13.10) Active confirmed Problem GERD (gastroesophageal reflux disease) (K21.9) Active confirmed Vital Signs Blood pressure diastolic 11 mm Hg 11/19/2024 Height 64 in 11/19/2024 Blood pressure systolic 111 mm Hg 11/19/2024 Weight 200 lbs 11/19/2024 BMI 34.33 kg/m2 11/19/2024 Procedures Procedure Date Ordered Date Performed Result Body Sit e UPPER GI ENDOSCOPY BALLOOON DILATION OF ESOPH 11/19/2024 N/A Encounters Encounter Location Date Provider Diagnosis [facility] [address] [place] [phone] 12/03/2024 Sanket Hankins Gastro-esophageal reflux disease without esophagitis K21.9 ; Gastric polyps K31.7 and Hiatal hernia K44.9 [facility] [address] [place] [phone] 11/19/2024 Sanket Hankins Dysphagia R13.10 and GERD (gastroesophageal reflux disease) K21.9 [facility] [address] [place] [phone] 07/13/2024 Sanket Hankins [facility] [address] [place] [phone] 12/07/2024 Sanket Hankins Assessments Encounter Date Diagnosis [...] COLONOSCOPY 10/24/2023 Next Appt Details Provider Name:Sanket Hankins , 05/11/2025 01:00:00 PM, [address] [facility], [address], [place], [address], Insurance Providers Payer Name Payer Address Payer Phone Subscriber Number Group Number Insured Name Patient Relationship to Insured Coverage Start Date Coverage End Date [facility] [address] [place] [phone] [id number] DONELL LÓPEZ Self - patient is the insured Medical (General) History Medical History History ICD Code Denies [place],DM,CVA,Lung disease,renal dise ase Hypertension Torn rotator cuff on the left Negative screening colonoscopy in 02/2024 GERD Surgical History Surgery Date(Month/Year) gallbladder--- for presumed acalculous cholecystitis with Dr. Reanna Ron 06/2015 appendectomy 1998
--- OUTSIDE RECORDS SUMMARY | 2025-03-31 16:51 | XMS_ITS | Clinical Summary ---
Author Organization [facility] Address [address] [place] [phone] Phone Care Team Providers Care Geothermal Operations Engineer Name Role Phone Physician, No Pcp [...] complete this topic Insurance GENERIC Care Teams Geothermal Operations Engineer Relationship Specialty Start Date End Date Physician, No Pcp PCP - General 09/21/24
--- OUTSIDE RECORDS SUMMARY | 2025-03-31 16:52 | XMS_ITS | Patient Health Record ---
Author Organization Sanket Saleem III, MD Address [address] [place] [address] Care Team Providers Care Med Asst Name Role Phone Sanket Saleem Primary Care [...] Value Reference Range Notes Lipid Panel Reviewed date:06/08/2024 05:50:59 AM Interpretation: Performing Lab:[facility], [address] [place] [phone] Notes/Report: Triglycerides 136 <150 mg/dL Desirable Triglyceride: less than 150 mg/dL Borderline High Triglyceride 150-199 mg/dL High Triglyceride: 200-499 mg/dL Very High Triglyceride: greater than or equal to 5OO mg/dL Cholesterol 183 <200 mg/dL Desirable Cholesterol: less than 200 mg/dL Borderline High Cholesterol: 200-239 mg/dL High Cholesterol: greater than 239 mg/dL LDL Cholesterol Calculated 120 <100 mg/dL Desirable LDL: less than 100 mg/dL Near Optimal/Above Optimal LDL: 110-129 mg/dL Borderline High LDL: 130-159 mg/dL High LDL: 160-189 mg/dL Very High LDL: greater than or equal to 190 mg/dL HDL Cholesterol 36 >40 mg/dL Desirable HDL: greater than 40 mg/dL Note: This HDL assay may give artificially low results in patients with liver disease. Lipid Panel (Not yet reviewe d by provider) Interpretation: Performing Lab:[facility], [address] [place] [phone] Notes/Report: Triglycerides 160 <150 mg/dL Desirable Triglyceride: [...] low results in patients with liver disease. Complete Blood Count Auto Di ff Reviewed date:06/08/2024 05:50:59 AM Interpretation: Performing Lab:[facility], [address] [place] [phone] Notes/Report: White Blood Count 4.9 4.8-10.8 X10*3/uL Red Blood Count 4.88 4.60-5.80 X10*6/uL Hemoglobin 15.8 14.0-18.0 g/dl Hematocrit 43.0 42.0-52.0 % Mean Corpuscular Volume 88.1 80.0-98.0 fL Mean Corpuscular Hemoglobin 32.4 27.0-33.0 pg Mean Corpuscular HGB Conc 36.7 31.0-36.0 g/dl Red Cell Distribution Width 11.8 11.0-16.0 % Platelet Count 213 160-400 X10*3/uL Mean Platelet Volume 10.7 9.4-12.4 fL Neutrophils Percent Auto 57.5 45-73 % Imm Gran Pct Auto 1.0 0.0-0.4 % Lymphocytes Percent Auto 28.3 20-40 % Monocytes Percent Auto 9.7 2-11 % Eosinophils Percent Auto 2.5 0-4 % Basophils Percent Auto 1.0 0-2 % NRBC Pct Auto 0.0 0.0-0.2 /100WBC Neutrophils Absolute Auto 2.8 2.0-8.3 x10*3/uL Imm Gran Abs Auto 0.05 0.00-0.03 X10*3/uL Lymphocytes Absolute Auto 1.4 1.2-4.9 X10*3/uL Monocytes Absolute Auto 0.5 0.1-1.2 X10*3/uL Eosinophils Absolute Auto 0.1 0.0-0.4 X10*3/uL Basophils Absolute Auto 0.1 0.0-0.2 X10*3/uL NRBC Abs Auto 0.000 0.0-0.012 X10*3/uL Comprehensive Met. Panel Reviewed date:06/08/2024 05:50:59 AM Interpretation: Performing Lab:[facility], [address] [place] [phone] Notes/Report: Sodium 142 135-145 mmol/L Potassium 4.8 3.3-5.1 mmol/L Chloride 107 96-108 mmol/L Carbon Dioxide 28 22-29 mmol/L Anion Gap 12 12-20 Blood Urea Nitrogen 14 9-16 mg/dL Creatinine 1.08 0.5-1.4 mg/dL Estimated Glomerular Filt Rate > 60 NOTE: For -Croat[place] individuals, multiply the result by 1.210. Chronic Kidney Disease: Estimated GFR < 60 mL/min/1.73m2 Severe Kidney Disease: Estimated GFR < 15 mL/min/1.73m2 Glucose Random 118 60-115 mg/dL Calcium 10.0 8.4-10.2 mg/dL Bilirubin Total 0.4 0.0-1.0 mg/dL Aspartate Amino Transferase 19 5-37 U/L Alanine Aminotransferase 34 0-40 U/L Total Protein 7.2 6.5-8.0 g/dL Albumin Level 4.5 3.5-5.0 g/dL Alkaline Phosphatase 86 39-117 U/L Testosterone, Total Reviewed date:06/08/2024 05:50:59 AM Interpretation: Performing Lab:[facility], [address] [place] [phone] Notes/Report: Testosterone, Total 971 999-3754 ng/dL For additional information, please refer to http://education.Laura Sapiens/faq/ TotalTestosteroneLCMS [email or web address] (This link is being provided for informational/ educational purposes only.) This test was developed and its analytical performance characteristics have been determined by [employer] [place]. It has not been cleared or approved by the U.S. Food and Drug Administration. This assay has been validated pursuant to the CLIA regulations and is used for clinical purposes. THIS TEST WAS PERFORMED AT: [facility]/[address] DOMINGUEZ ROJAS MD,PHD Pathology (Not yet reviewed by provider) Interpretation: Performing Lab:[facility], [address] [place] [phone] Notes/Report: ---- Name: Vicente Lindsay Age/Sex: 54/M : 1970 Unit#: [id number] Attend Dr: Sanket Hankins MD Re12/03/24 Status : [facility] Location: [place] Disch: ---- SPEC : [id number] RECD : 12/03/24-012 STATUS: HONG DÍAZ NUM: [id number] RONNIE: 12/03/24-1351 [facility] DR: Sanket Hankins MD ENTERED: 12/03/24- SP TYPE: Surgical OTHR DR: Sanket Saleem MD ORDERED: HE Stain/12 , Gross Micro L4/4, IHC/2, Special st. 2/3, H. pylori/2, AB/PAS/3 Diagnosis A. EG junction, 35 c m, biopsy: - Cardiofundic-type mucosa with moderate chronic active inflammation; no intestinal metaplasia seen. - Active esophagitis (maximum eosinophil count 1 per high powered field). B. Stomach, antrum, polypectomies: Hyperplastic mucosal polyps with background mild chronic inactive inflammation; no Helicobacter organisms seen. C. Stomach, antrum, biopsy: Antral-type mucosa with mild chronic inactive inflammation; no Helicobacter organisms seen. D. Esophagus, 20-25 cm, biopsy: Squamous epithelium within normal limits; no inflammation seen; negative for eosinophilic esophagitis. Clinical History Pre-Op Dx: Dysphagia , GERD Post-Op Dx: Gastric polyps, hiatal hernia, reflux Microscopic Description A-D. Microscopic sections examined. No metaplastic changes are seen, supported by AB/PAS stains (A, B and C); no Helicobacter organisms are seen, supported by H. pylori immunostain (B and C). Material Received A. EG junction bx at 35 cm B. Gastric antral polyps C. Gastric antrum bx D. Bx esophagus 20-2 5 cm, r/o EOE Gross Description Received in four parts. Part A: Received in formalin labeled EG junction bx at 35 cm? are 6 batres-pink irregular tissue fragments ran ging from 0.1-0.3 cm, submitted in toto in a cassette labeled A. Part B: Received in formalin labeled ?gastric antral polyps are 4 batres-pink irregular tissue fragments eac h measuring 0.25 cm, submitted in toto in a cassette labeled B. CONTINUED ON NEXT PAGE ---- Name: Vicente Lindsay Age/Sex: 54/M : 1970 Unit#: [id number] Attend Dr: Sanket Hankins MD Re12/03/24 Statu s: [facility] [place] Disch: ---- SPEC : [id number] RECD : 12/03/24 STATUS: HONG DÍAZ NUM: [id number] RONNIE: 12/03/[address] [facility] [address]: Sanket Hankins MD ENTERED: 12/03/24 SP TYPE: Surgical OTHR DR: Sanket Saleem MD ORDERED: HE Stain/12 , Gross Micro L4/4, IHC/2, Special st. 2/3, H. pylori/2, AB/PAS/3 Gross Description (Continued) Part C: Received in formalin labeled ?gastric antrum bx? are 3 batres-pink irregular and rectangular tissue fragments ranging from 0.3-0.45 cm, submitted in toto in a cassette labeled C. Part D: Received in formalin labeled bx esophagus 20-25 cm, rule out EOE? are 4 batres-pink irregular and rectangular tissue fragments ranging from 0.2 to 0.35 cm, submitted in toto in a cassette labeled D . CEDS Special studies orde red and performed: Immunostain for H. pylori on B and C; AB/PAS stains on A, B and C Copies To: Sanket Saleem MD [address] [place] [address], [address] [place] [address] Sanket Hankins MD [facility] [address] [place] [address] ---- Signed (signature on file) Robbie Roldan MD 12/07/24 1215 ---- END OF REPORT XR chest 2V (Not yet reviewe d by provider) Interpretation: Performing Lab: Notes/Report: [address] [address] XRay Report Signed Patient: Vicente Lindsay MR#: [id number] 4 : 1970 Acct:[id number] Age/Sex: 54 / M ADM Date: 01/15/25 Loc: HO.XRAY Attending Dr: Sanket Saleem MD Ordering Physician: Sanket Saleem MD Date of Service: 01/15/25 Procedure(s): XR chest 2V Accession Number(s): [id number] cc: Sanket Saleem MD CLINICAL HISTORY: SHORTNESS OF BREATH --- Additional Notes or Special Instructions: WO Chest two view Comparison: None Findings: Relatively low lung volumes. Mild basilar vascular crowding. No consolidation, pulmonary edema, pleural effusion or pneumothorax. Normal cardiomediastinal silhouette. No acute fracture. Upper abdomen unremarkable. Impression: No acute cardiopulmonary process. Low lung volumes. This document has been electronically signed by: Liam Griffin MD on 01/15/2025 06:47:41 Dictated By: Liam Griffin MD Signed By: <Electronically signed by Liam Griffin MD in OV> 01/15/2548 DD/ 6 TD/TT: 01/15/25646 Kick Boxer: [address] [address] XRay Report Signed Patient: Willian Lindsay MR#: [id number] 4 : 1970 Acct:[id number] Age/Sex: 54 / M ADM Date: 01/15/25 Loc: HO.APOLINAR Attending Dr: Sanket Saleem MD Ordering Physician: Sanket Saleem MD Date of Service: 01/15/25 Procedure(s): XR radha st 2V Accession Number(s): [id number] cc: Sanket Saleem MD CLINICAL HISTORY: SHORTNESS OF BREATH --- Additional Notes or Special Instructions: WO Chest two view Comparison: None Findings: Relatively low lung volumes. Mild basilar vascular crowding. No consolidation, pulmonary edema, pleural effusion or pneumothorax. Normal cardiomediast inal silhouette. No acute fracture. U pper abdomen unremarkable. Impression: No acute cardiopulmo nary process. Low lung volumes. This document has be en electronically signed by: Liam Griffin MD on 01/15/2025 06:47:41 Dictated By: Liam Griffin MD Signed By: <Electronically signed by Liam Griffin MD in OV> 01/15/2548 DD/ 6 TD/TT: 01/15/25646 Kick Boxer: Complete Blood Count Auto Di ff (Not yet reviewed by provider) Interpretation: Performing Lab:[facility], [address] [place] [phone] Notes/Report: White Blood Count 5.1 4.8-10.8 X10*3/uL Red Blood Count 4.96 4.60-5.80 X10*6/uL Hemoglobin 15.9 14.0-18.0 g/dl Hematocrit 43.0 42.0-52.0 % Mean Corpuscular Volume 86.7 80.0-98.0 fL Mean Corpuscular Hemoglobin 32.1 27.0-33.0 pg Mean Corpuscular HGB Conc 37.0 31.0-36.0 g/dl Red Cell Distribution Width 12.1 11.0-16.0 % Platelet Count 248 160-400 X10*3/uL Mean Platelet Volume 10.3 9.4-12.4 fL Neutrophils Percent Auto 59.3 45-73 % Imm Gran Pct Auto 0.8 0.0-0.4 % Lymphocytes Percent Auto 25.7 20-40 % Monocytes Percent Auto 11.1 2-11 % Eosinophils Percent Auto 1.9 0-4 % Basophils Percent Auto 1.2 0-2 % NRBC Pct Auto 0.0 0.0-0.2 /100WBC Neutrophils Absolute Auto 3.0 2.0-8.3 x10*3/uL Imm Gran Abs Auto 0.04 0.00-0.03 X10*3/uL Lymphocytes Absolute Auto 1.3 1.2-4.9 X10*3/uL Monocytes Absolute Auto 0.6 0.1-1.2 X10*3/uL Eosinophils Absolute Auto 0.1 0.0-0.4 X10*3/uL Basophils Absolute Auto 0.1 0.0-0.2 X10*3/uL NRBC Abs Auto 0.000 0.0-0.012 X10*3/uL Comprehensive Lisman. Panel Fa st (Not yet reviewed by provider) Interpretation: Performing Lab:[facility], [address] [place] [phone] Notes/Report: Sodium 140 135-145 mmol/L Potassium 4.4 3.3-5.1 mmol/L Chloride 109 96-108 mmol/L Carbon Dioxide 22 22-29 mmol/L Anion Gap 13 12-20 Blood Urea Nitrogen 19 9-16 mg/dL Creatinine 0.86 0.5-1.4 mg/dL Estimated Glomerular Filt Rate > 60 Chronic Kidney Disease: Estimated GFR < 60 mL/min/1.73m2 Severe Kidney Disease: Estimated GFR < 15 mL/min/1.73m2 Glucose Fasting 118 60-99 mg/dL A fasting glucose from 100-125 mg/dl is considered impaired (pre-diabetes). Calcium 9.2 8.4-10.2 mg/dL Bilirubin Total 0.4 0.0-1.0 mg/dL Aspartate Amino Transferase 28 5-37 U/L Alanine Aminotransferase 52 0-40 U/L Total Protein 7.3 6.5-8.0 g/dL Albumin Level 4.7 3.5-5.0 g/dL Alkaline Phosphatase 88 39-117 U/L Prostate Specific Antigen (N ot yet reviewed by provider) Interpretation: Performing Lab:[facility], [address] [place] [phone] Notes/Report: Prostate Specific Antigen 0.79 <0.05-4.0 ng/mL PSA methodology: Damon Alinity i Chemiluminescent Microparticle Immunoassay (CMIA) D Dimer High Sensitivity (No t yet reviewed by provider) Interpretation: Performing Lab:[facility], [address] [place] [phone] Notes/Report: D Dimer High Sensitivity < 150 D-DIMER HS REFERENCE RANGE Note: Our assay reports D-Dimer Units (D-DU). The cut-off value for venous thromboembolic (VTE) disease is 230 ng/mL. This value has a very high negative predictive value when the patient has a low to moderate clinical probability of VTE. The upper limit of normal is 243 ng/mL. Reason For Referral Reason Evaluate and Treat Needs Sleep Study Daytime somnolence Diagnosis 1 Snoring (R06.83) Diagnosis 2 Daytime somnolence ( R40.0) Referral Organization Sanket Saleem III, MD Referring Provider First Name Sanket Referring Provider Last Name Harper Referring Provider Speciality Internal edicine Referred Provider [facility], Pulmonology Referred Provider Specialty Pulmonary Di seases General Notes [place] 04/13 03:56:48 PM > Faxed referral with progress note., Marta De La Vega CMA 04/15/2024 01:17:31 PM EDT > Dr Nicole office called stated pt has appt with Dr Nicole on 06/02/2024 at 1:45pm Referral Priority Routine Referral Appointment Date 06/02/2024 Reason Evaluate and Treat Dysphagia Food sticks mid esophagus Diagnosis 1 Dysphagia (R13.10) Referral Organization Sanket Saleem III, MD Referring Provider First Name Sanket Referring Provider Last Name Harper Referring Provider Speciality Internal M edicine Referred Provider Sanket Hankins Referred Provider Specialty Gastroentero logy General Notes [place] 11/02/2024 09:29:58 AM > Referral and progress note faxed Referral Priority Routine Referral Appointment Date 11/19/2024 Reason Evaluate and Treat Diagnosis 1 Asthma (J45.909) Diagnosis 2 Pulmonary nodules (R 91.8) Diagnosis 3 LAUREEN (obstructive sle ep apnea) (G47.33) Referral Organization Sanket Saleem III, MD Referring Provider First Name Sanket Referring Provider Last Name Harper Referring Provider Speciality Internal M edicine Referred Provider SHAYNA WORTHY Referred Provider Specialty [facility]monary [facility] General Notes [place] 01/25/2025 12:20:27 PM > Referral, Progress note and PFT test faxed, Marta Zapata CMA 02/11/2025 02:10:53 PM >[place] [facility] de[facility] called stated they needed copy of ct scan faxed to them I explained this was from 2016 but they still wanted this faxed to them so it was today Referral Priority Routine Referral Appointment Date 03/31/2025 Medications Medication SIG (Take, Route, Frequency, Duration) Notes Start Date End Date Status Tylenol 325 MG 2 tablets as needed Orally every 6 hrs Active Amitriptyline HCl 50 MG 1 tablet Orally Once a day Active Clobetasol Propionate 0.05 % APPLY TOPIC ALLY TO THE AFFECTED AREA TWICE DAILY Active Atenolol 50 MG TAKE 1 TABLET BY TO TH DAILY for 90 Active Betamethasone Dipropionate Aug 0.05 % APPLY TOPICALLY TO THE AFFECTED AREA EVERY DAY Active Fluconazole 100 MG 1 tablet Orally weekly 06/05/20 24 Active Valsartan 320 MG TAKE 1 TABLET BY OT TH EVERY DAY Active Lisinopril 10 MG 1 tablet Orally Once a day 04/03/2024 Active amLODIPine Besylate 2.5 MG TAKE 1 TABLET BY MOUTH DAILY Oral Active Social History Tobacco Use: Social History Observation Description Date Details (start date - stop date) Former Smoker NA - NA Sex Assigned At : Social History Observation Description Sex Assigned At Male Tobacco Use/Smoking Question Answer Notes Patient is a former smoker How long has it been since you last smoked? > 10 years Additional Findings: Tobacco Non-User Ex-cigaret te smoker Alcohol Screen Question Answer Notes Did you have a drink containing alcohol in the p ast year? No Points 0 Interpretation Negative Problems Problem Type SNOMED Code ICD Code Onset Dates Problem Status W/U Status Risk Notes Problem 2411431 Former smoker (Z87.891) Active confirmed He is highly motivated not to smoke. We discussed a plan to prevent relapse in times of stress or illness. Problem 547805482 Obesity (E66.9) Active confirmed He has lost 3 pounds. . We have reviewed his weight loss plan. We discussed diet and nutrition. We made a plan to lose weight at a rate of one half of a pound per week. Problem 952530439 Asthma (J45.909) Active confirmed He has had no exacerbations of his asthma since his last visit. No change in his therapy was made. Problem 649685095 Right sided abdominal pain (R10.9) Active confirmed The examination today did not elicit this symptom.His discomfort is intermittent but still present. Will be observed carefully. Problem Hypertension (86116984) Hypertension (I10) Active confirmed Pressures stable. No change in his regimen was needed today. Problem 36184825 Splenomegaly (R16.1) Active confirmed I did not feel the tip of the spleen today on deep inspiration. No left upper quadrant abdominal pain has been present. He will be observed. Problem 152027410 Pulmonary nodules (R91.8) Active confirmed A CT scan of the chest ordered by Dr. Ron showed several small nodules the largest being 3 mm with normal-sized mediastinal lymph nodes and a 1.4 cm right hilar node and thickening of the right major fissure. He has no pulmonary complaints. Radiologist differential diagnosis was pneumoconiosis versus neoplasm versus inflammation. I will discuss this with him and suggest for a consultation. Problem 50641098 Pityriasis versicolor (B36.0) Active confirmed His skin is much improved today and no change in his regimen was needed. He is no longer taking medication for this. There was very little rash present At his request I refilled his triamcinolone. Problem Benign prostatic hypertrophy without outflow obstruction (300700262) BPH (benign prostatic hypertrophy) (N40.0) Active confirmed He has been rising from sleep once a night sometimes to urinate. We discussed lifestyle modifications it would reduce this. Problem 672765064 Degenerative joint disease (DJD) of lumbar spine (M47.816) Active confirmed His back cat n is minimal today and he is working full-time. 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 He will no longer take the dexamethasone. The pain is improved and should continue to do so. He will be followed. Problem Dysphagia (31136787) Dysphagia (R13.10) Active confirmed He will have an upper GI series to evaluate for a stricture or dysmotility and then see gastroenterolog y. He will likely need an upper endoscopy. He will take the omeprazole twice a day for a total daily dose of 40 mg. He will use liquid antacid every couple of hours. He will notify me at once if anything worsens. If his esophagus becomes obstructed he will go to the emergency room in [facility] [place]. Problem 69644182 Degenerative disc disease, thoracic (M51.34) Active confirmed The discomfort is much better. He is no longer taking muscle relaxants dexamethasone. She will avoid heavy lifting and undue exertion. Problem 6278135 Migraine with aura (G43.109) Active confirmed No migraines have occurred since his last visit. No change in his regimen was made today. Problem 831830509 Poor glycemic control (R73.09) Active confirmed The current glucose is only slightly elevated. His weight is up and we have discussed dietary control of hyperglycemia at length today. 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 No change in his regimen as needed. Problem 58293286 Dyspnea on exertion (R06.09) Active confirmed The pulmonary function tests are normal. Comprehensive blood work was ordered and will be reviewed. Problem Daytime somnolence (710025400259) Daytime somnolence (R40.0) Active confirmed I have ordered a sleep study to be done. Problem Obstructive sleep apnea syndrome (42101851) LAUREEN (obstructive sleep apnea) (G47.33) Active confirmed Problem 33398354 Impacted cerumen of left ear (H61.22) Active confirmed I did not see any liquid discharge. There was a soft brown impaction which was removed with warm water irrigation. After the removal of the wax, inspection of the tympanic membrane was normal. Problem 69574234 Odynophagia (R13.10) Active confirmed I ordered a barium swallow. We have discussed a GI referral or an ENT referral. Vital Signs Heart Rate 90 /min 03/30/2025 Temperature 97.5 degrees Fahrenheit 03/30/2025 Respiratory Rate 16 /min 03/30/2025 Oximetry 98 % 01/29/2025 Blood pressure diastolic 88 mm Hg 03/30/2025 Height 63 in in 03/30/2025 Blood pressure systolic 148 mm Hg 03/30/2025 Weight 206 lbs 03/30/2025 BMI 36.49 kg/m2 03/30/2025 Encounters Encounter Location Date Provider Diagnosis Sanket Saleem III, MD [address] [place] [address] [place] [address] 03/30/2025 Sanket Saleem Pityriasis versicolo r B36.0 Sanket Saleem III, MD [address] [place] [address] [place] [address] 04/03/2024 Sanket Saleem Pityriasis versicolo r B36.0 ; Obesity E66.9 ; BPH (benign prostatic hypertrophy) N40.0 ; Migraine with aura G43.109 ; Splenomegaly R16.1 ; Former smoker Z87.891 ; Right sided abdominal pain R10.9 ; Daytime somnolence R40.0 and Hypertension I10 Sanket Saleem III, MD [address] [place] [address] [place] [address] 06/05/2024 Sanket Saleem Pityriasis versicolo r B36.0 ; Hypertension I10 ; Former smoker Z87.891 ; Obesity E66.9 and Right sided abdominal pain R10.9 Sanket Saleem III, MD [address] [place] [address] [place] [address] 10/29/2024 Sanket Saleem Pityriasis versicolo r B36.0 ; Dysphagia R13.10 ; Migraine with aura G43.109 ; Poor glycemic control R73.09 ; Splenomegaly R16.1 ; Obesity E66.9 ; Former smoker Z87.891 ; Asthma J45.909 and Right sided abdominal pain R10.9 Sanket Saleem III, MD [address] [place] [address] [place] [address] 01/13/2025 Sanket Saleem Hypertension I10 ; Odynophagia R13.10 ; Pityriasis versicolor B36.0 ; Migraine with aura G43.109 ; Splenomegaly R16.1 ; Obesity E66.9 ; Former smoker Z87.891 ; Right sided abdominal pain R10.9 ; Pulmonary nodules R91.8 and Cervical radiculopathy M54.12 Sanket Saleem III, MD [address] [place] [address] [address] [place] [address] 01/29/2025 Sanket Saleem Pityriasis versicolo r B36.0 ; Dyspnea on exertion R06.09 ; Former smoker Z87.891 ; Obesity E66.9 ; Splenomegaly R16.1 ; Hypertension I10 and Right sided abdominal pain R10.9 Sanket Saleem III, MD [address] [place] [address] [place] [address] 01/06/2025 Sanket Saleem III, MD [address] [place] [address] [place] [address] 02/03/2025 Sanket Saleem Atypical chest pain R07.89 Sanket Saleem III, MD [address] [place] [address] [place] [address] 03/25/2025 Sanket Saleem Assessments Encounter Date Diagnosis (ICD Code) Assessment Notes Treat ment Notes Treatment Clinical Notes 03/30/2025 Pityriasis versicolor (ICD-10 - B36.0) His skin is much improved today and no change in his regimen was needed. He is no longer taking medication for this. There was very little rash present At his request I refilled his triamcinolone. 04/03/2024 Obesity (ICD-10 - E66.9) His weight has been stable. We have reviewed his weight loss plan. We discussed diet and nutrition. We made a plan to lose weight at a rate of one half of a pound per week. 04/03/2024 Pityriasis versicolor (ICD-10 - B36.0) His skin is much improved today and no change in his regimen was needed. He is no longer taking medication for this. There was very little rash present 06/05/2024 Hypertension (ICD-10 - I10) He has not been tolerating the amlodipine. I substituted 10 mg of lisinopril but he did not tolerate this either. His blood pressure without a drug was stable today so I did not at a new one. Her repeat blood pressure near future was arranged. 06/05/2024 Pityriasis versicolor (ICD-10 - B36.0) His skin is much improved today and no change in his regimen was needed. He is no longer taking medication for this. There was very little rash present At his request I refilled his triamcinolone. 10/29/2024 Pityriasis versicolor (ICD-10 - B36.0) His skin is much improved today and no change in his regimen was needed. He is no longer taking medication for this. There was very little rash present At his request I refilled his triamcinolone. 10/29/2024 Dysphagia (ICD-10 - R13.10) He will have an upper GI series to evaluate for a stricture or dysmotility and then see gastroenterology. He will likely need an upper endoscopy. He will take the omeprazole twice a day for a total daily dose of 40 mg. He will use liquid antacid every couple of hours. He will notify me at once if anything worsens. If his esophagus becomes obstructed he will go to the emergency room in [facility], [place]. 01/13/2025 Hypertension (ICD-10 - I10) Pressures stable. No change in his regimen was needed today. 01/13/2025 Odynophagia (ICD-10 - R13.10) I ordered a barium swallow. We have discussed a GI referral or an ENT referral. 01/29/2025 Pityriasis versicolor (ICD-10 - B36.0) His skin is much improved today and no change in his regimen was needed. He is no longer taking medication for this. There was very little rash present At his request I refilled his triamcinolone. 01/29/2025 Dyspnea on exertion (ICD-10 - R06.09) The pulmonary function tests are normal. Comprehensive blood work was ordered and will be reviewed. 02/03/2025 Atypical chest pain (ICD-10 - R07.89) 04/03/2024 BPH (benign prostatic hypertrophy) (ICD-10 - N40.0) He has been rising from sleep once a night sometimes to urinate. We discussed lifestyle modifications it would reduce this. 06/05/2024 Former smoker (ICD-10 - Z87.891) He is highly motivated not to smoke. We discussed a plan to prevent relapse in times of stress or illness. 10/29/2024 Migraine with aura (ICD-10 - G43.109) No migraines have occurred since his last visit. No change in his regimen was made today. 01/13/2025 Pityriasis versicolor (ICD-10 - B36.0) His skin is much improved today and no change in his regimen was needed. He is no longer taking medication for this. There was very little rash present At his request I refilled his triamcinolone. 01/29/2025 Former smoker (ICD-10 - Z87.891) He is highly motivated not to smoke. We discussed a plan to prevent relapse in times of stress or illness. 04/03/2024 Migraine with aura (ICD-10 - G43.109) No migraines have occurred since his last visit. No change in his regimen was made today. 06/05/2024 Obesity (ICD-10 - E66.9) He has gained 4 pounds. His body mass index is 36.13.. We have reviewed his weight loss plan. We discussed diet and nutrition. We made a plan to lose weight at a rate of one half of a pound per week. 10/29/2024 Poor glycemic control (ICD-10 - R73.09) The current glucose is only slightly elevated. His weight is up and we have discussed dietary control of hyperglycemia at length today. 01/13/2025 Migraine with aura (ICD-10 - G43.109) No migraines have occurred since his last visit. No change in his regimen was made today. 01/29/2025 Obesity (ICD-10 - E66.9) He has lost 3 pounds. . We have reviewed his weight loss plan. We discussed diet and nutrition. We made a plan to lose weight at a rate of one half of a pound per week. 04/03/2024 Splenomegaly (ICD-10 - R16.1) I did not feel the tip of the spleen today on deep inspiration. No left upper quadrant abdominal pain has been present. He will be observed. 06/05/2024 Right sided abdominal pain (ICD-10 - R10.9) The examination today did not elicit this symptom.His discomfort is intermittent but still present. Will be observed carefully. 10/29/2024 Splenomegaly (ICD-10 - R16.1) I did not feel the tip of the spleen today on deep inspiration. No left upper quadrant abdominal pain has been present. He will be observed. 01/13/2025 Splenomegaly (ICD-10 - R16.1) I did not feel the tip of the spleen today on deep inspiration. No left upper quadrant abdominal pain has been present. He will be observed. 01/29/2025 Splenomegaly (ICD-10 - R16.1) I did not feel the tip of the spleen today on deep inspiration. No left upper quadrant abdominal pain has been present. He will be observed. 04/03/2024 Former smoker (ICD-10 - Z87.891) He is highly motivated not to smoke. We discussed a plan to prevent relapse in times of stress or illness. 10/29/2024 Obesity (ICD-10 - E66.9) He has gained 4 pounds. His body mass index is 36.13.. We have reviewed his weight loss plan. We discussed diet and nutrition. We made a plan to lose weight at a rate of one half of a pound per week. 01/13/2025 Obesity (ICD-10 - E66.9) He has lost 3 pounds. . We have reviewed his weight loss plan. We discussed diet and nutrition. We made a plan to lose weight at a rate of one half of a pound per week. 01/29/2025 Hypertension (ICD-10 - I10) Pressures stable. No change in his regimen was needed today. 04/03/2024 Right sided abdominal pain (ICD-10 - R10.9) The examination today did not elicit this symptom. 10/29/2024 Former smoker (ICD-10 - Z87.891) He is highly motivated not to smoke. We discussed a plan to prevent relapse in times of stress or illness. 01/13/2025 Former smoker (ICD-10 - Z87.891) He is highly motivated not to smoke. We discussed a plan to prevent relapse in times of stress or illness. 01/29/2025 Right sided abdominal pain (ICD-10 - R10.9) The examination today did not elicit this symptom.His discomfort is intermittent but still present. Will be observed carefully. 04/03/2024 Daytime somnolence (ICD-10 - R40.0) I have ordered a sleep study to be done. 10/29/2024 Asthma (ICD-10 - J45.909) He has had no exacerbations of his asthma since his last visit. No change in his therapy was made. 01/13/2025 Right sided abdominal pain (ICD-10 - R10.9) The examination today did not elicit this symptom.His discomfort is intermittent but still present. Will be observed carefully. 04/03/2024 Hypertension (ICD-10 - I10) He has not been tolerating the amlodipine. I substituted 10 mg of lisinopril. The risks and benefits and side effects were carefully explained to him and he gave consent. 10/29/2024 Right sided abdominal pain (ICD-10 - R10.9) [...] He will be followed. Plan Of Treatment Pending Test Test Name Order Date PROFILE, FASTING (COMPREHENSIVE METABOLI C) 04/03/2024 PROFILE, FASTING (COMPREHENSIVE METABOLI C) 01/29/2025 PROFILE, FASTING (COMPREHENSIVE METABOLI C) 04/21/2019 PROFILE, FASTING (COMPREHENSIVE METABOLI C) 04/01/2023 PROFILE, FASTING (COMPREHENSIVE METABOLI C) 10/20/2019 PROFILE, RANDOM (COMPREHENSIVE METABOLIC ) 12/14/2020 LIPID PANEL 12/14/2020 LIPID PANEL 10/20/2019 LIPID PANEL 04/21/2019 LIPID PANEL 04/01/2023 PSA, TOTAL 10/20/2019 PSA, TOTAL 01/29/2025 PSA, TOTAL 04/01/2023 CBC w DIFF 12/14/2020 CBC w DIFF 10/20/2019 CBC w DIFF 01/29/2025 CBC w DIFF 04/21/2019 CBC w DIFF 04/01/2023 TESTOSTERONE, TOTAL 04/03/2024 XR BARIUM SWALLOW, MODIFIED VIDEO 2024 XR CHEST 2 VIEW PA & LAT 01/13/2025 Stress Test 02/03/2025 VITAMIN D 25-OH TOTAL 10/20/2019 PFT with DLCO 01/13/2025 CBC WITH AUTO DIFF 04/03/2024 SARS COV2 IGG 09/29/2020 Complete Blood Count Auto Diff D Dimer 01/29/2025 Comprehensive [place]. Panel Fast Lipid Panel 01/29/2025 Prostate Specific Antigen 01/30/2025 Pathology 12/03/2024 ECG 12 lead EKG 01/29/2025 XR chest 2V 01/15/2025 D Dimer High Sensitivity 01/30/2025 Next Appt Details Provider Name:Sanket Saleem, 04/09/2025 02:00:00 PM, [address] [place] [address] , [facility] [address], [facility] [phone], Insurance Providers Payer Name Payer Address Payer Phone Subscriber Number Group Number Insured Name Patient Relationship to Insured Coverage Start Date Coverage End Date [facility] [address] [facility] [address] [facility] [place] [phone] [id number] Vicente Lindsay Self - patient is the insured Medical (General) History Medical History History ICD Code right upper abdominal pain Pityriasis versicolor B36.0 Migraine with aura G43.109 impaired fasting glucose R73.09 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
== END 2025-03-31 16:09 | disposition home or self-care (01) ==
LOC: HO.HPS 15:42
PROVIDERS: PCP Internal Medicine Medical Oncology; Visit Provider Internal Medicine Pulmonary Disease
DX: Z91.09 Other allergy status, other than to drugs and biological substances (principal); J45.909 Unspecified asthma, uncomplicated
CPT/HCPCS: 99214

== ENCOUNTER 2025-03-31 15:42 | Outpatient (REF) | payer OTHER, SELFPAY ==
[2025-03-31 16:38] LABS: MANUAL DIFF FLAG NO
[2025-03-31 17:22] LABS: Hematocrit 42.6 % (42.0-52.0); Hemoglobin 15.6 g/dl (14.0-18.0); Imm Gran Abs Auto 0.04 X10*3/uL (0.00-0.03); Imm Gran Pct Auto 0.5 % (0.0-0.4); Lymphocytes Absolute Auto 1.8 X10*3/uL (1.2-4.9); Mean Corpuscular HGB Conc 36.6 g/dl (31.0-36.0); Mean Corpuscular Hemoglobin 32.2 pg (27.0-33.0); Mean Corpuscular Volume 87.8 fL (80.0-98.0); NRBC Abs Auto 0.020 X10*3/uL (0.0-0.012); NRBC Pct Auto 0.3 /100WBC (0.0-0.2); Platelet Count 229 X10*3/uL (160-400); Red Blood Count 4.85 X10*6/uL (4.60-5.80); White Blood Count 7.5 X10*3/uL (4.8-10.8)
[2025-04-03 06:08] LABS: Class Alternaria alternata 0; Class Aspergillus fumigatus 0; Class Bermuda Grass 0; Class Birch 0; Class Cat Dander 0; Class Cladosporium herbarum 0; Class Cockroach 0; Class Common Ragweed 0; Class Cottonwood 0; Class Derm. pterony 0; Class Dermatophagoides farinae 0; Class Dog Dander 0; Class Elm 0; Class Maple Box Elder 0; Class Mountain Cedar 0; Class Mouse Urine Protein 0; Class Mugwort 0; Class Oak 0; Class Penicillium crysogenum 0; Class Rough Pigweed 0; Class Sheep Sorrel 0; Class Sycamore 0; Class Timothy Grass 0; Class Walnut Tree 0; Class White Ash 0; Class White Mulberry 0; D002 - IgE D farinae <0.10 kU/L; E001 - IgE Cat Dander <0.10 kU/L; E005 - IgE Dog Dander <0.10 kU/L; G006 - IgE Timothy Grass <0.10 kU/L; I006-IgE Cockroach, German <0.10 kU/L; M002 - IgE Cladosporium herbar <0.10 kU/L; M003 - IgE Aspergillus fumigat <0.10 kU/L; M006 - IgE Alternaria alternat <0.10 kU/L; T001 IgE Maple/Box Elder <0.10 kU/L; T006 - IgE Cedar, Mountain <0.10 kU/L; T007 - IgE Oak, White <0.10 kU/L; T008 IgE Elm, American <0.10 kU/L; T010 - IgE Walnut <0.10 kU/L; T011 - IgE Maple Leaf Sycamore <0.10 kU/L; T014 - IgE Cottonwood <0.10 kU/L; T015 - IgE Ash, White <0.10 kU/L; T070 - IgE White Mulberry <0.10 kU/L; W001 - IgE Ragweed, Short <0.10 kU/L; W006 - IgE Mugwort <0.10 kU/L; W014 IgE Pigweed, Common <0.10 kU/L; W018 IgE Sheep Sorrel <0.10 kU/L
== END 2025-03-31 15:43 | disposition home or self-care (01) ==
LOC: HO.LAB 15:42
PROVIDERS: PCP Internal Medicine Medical Oncology; Visit Provider Internal Medicine Pulmonary Disease
DX: J45.909 Unspecified asthma, uncomplicated (principal); Z91.09 Other allergy status, other than to drugs and biological substances; Z87.891 Personal history of nicotine dependence
CPT/HCPCS: 36415; 82785; 85025; 86003

== ENCOUNTER 2025-06-04 08:54 | Outpatient (REF) | payer OTHER, SELFPAY ==
--- OUTSIDE RECORDS SUMMARY | 2024-02-14 03:30 | XMS_ITS ---
Author Organization [facility] Address [address] [place] [address] Care Team Providers Care Manager Of Data Name Role Phone Sanket Saleem MD Primary Care Provider Sanket Orona Unavailable [phone] REASON FOR VISIT screening Problems Problem Type SNOMED Code ICD Code Onset Dates Problem Status W/U Status Risk Notes Problem Diverticular disease of colon ([id number]) Diverticulosis of large intestine without perforation or abscess without bleeding (K57.30) Active confirmed Encounters Encounter Location Date Provider [place] [facility] [place] [address] [place] [id number] 02/14/2024 Sanket Hankins Encounter for scre ening colonoscopy Z12.11 ; Diverticulosis of large intestine without perforation or abscess without bleeding K57.30 and Other hemorrhoids K64.8 Assessments Encounter Date Diagnosis (ICD Code) Assessment Notes Treatment Notes Treatment Clinical Notes Section Notes 02/14/2024 Encounter for screening colonoscopy (ICD-10 - Z12.11) 02/14/2024 Diverticulosis of large intestine without perforation or abscess without bleeding (ICD-10 - K57.30) 02/14/2024 Other hemorrhoids (ICD-10 - K64.8) Plan Of Treatment No Information Progress Notes * DONELL LÓPEZDOB:1970 (54 yo M)Acc No.[id number]:02/14/2024 COLON WITH MAC Patient: DONELL FRANCIS Provider: Christopher Hankins MD :1970 A ge:53 Y S ex:Male Date:02/14/2024 Address:[address], [place] Pcp:Sanket Saleem MD Subjective: * Chief Complaints: * 1 . Screening. * Medical History: Objective: * Vitals: Assessment: * Assessment: 1. E ncounter for screening colonoscopy - Z12.11 (Primary) 2 . D iverticulosis of large intestine without perforation or abscess without bleeding - K57.30 3 .?Other hemorrhoids - K64.8 Plan: * Treatment: * Procedure Codes: 4 5378 DIAGNOSTIC COLONOSCOPY * * The named appointment provid er may or may not be the originator of this progress note, and it is not deemed complete until electronically signed by the appointment provider. Sign off status: Pending * Provider: Christopher Hankins MD Date: 0 02/14/2024 Generated for Chema singh/Anaid/Madelineitting on: 09:27 AM EDT
--- OUTSIDE RECORDS SUMMARY | 2024-12-03 09:30 | XMS_ITS ---
Author Organization [facility] Address [address] [place] [address] Care Team Providers Care Robot Operator Name Role Phone Harper HERNANDEZ, Sanket Primary Care Provider Sanket Orona Unavailable [phone] REASON FOR VISIT gerd,dysphagia Encounters Encounter Location Date Provider Diagnosis [facility] [place] [address] [place] [id number] 12/03/2024 Sanket Hankins Gastro-esophageal reflux disease without esophagitis K21.9 ; Gastric polyps K31.7 and Hiatal hernia K44.9 Assessments Encounter Date Diagnosis (ICD Code) Assessment Notes Treatment Notes Treatment Clinical Notes Section Notes 12/03/2024 Gastro-esophagea l reflux disease without esophagitis (ICD-10 - K21.9) 12/03/2024 Gastric polyps (ICD-10 - K31.7) 12/03/2024 Hiatal hernia (ICD-10 - K44.9) Plan Of Treatment No Information Progress Notes * DONELL LÓPEZDOB:1970 (54 yo M)Acc No.[id number]:12/03/2024 EGD/MAC Patient: DONELL FRANCIS Provider: Christopher Hankins MD :1970 A ge:54 Y S ex:Male Date:12/03/2024 Address:[address] [place], [place] [phone] Pcp:Sanket Saleem MD Subjective: * Chief Complaints: * 1 . Gerd,dysphagia. * Medical History: Objective: * Vitals: Assessment: * Assessment: 1. G radha-esophageal reflux disease without esophagitis - K21.9 (Primary) 2 .?Gastric polyps - K31.7 3 . H iatal hernia - K44.9 Plan: * Treatment: * Procedure Codes: 4 3249 ESOPH ENDOSCOPY, DILATION, 59624 UPPER GI ENDOSCOPY, BIOPSY, Modifiers: 59 * * The named appointment provid er may or may not be the originator of this progress note, and it is not deemed complete until electronically signed by the appointment provider. Sign off status: Pending * Provider: Christopher Hankins MD Date: 0 12/03/2024 Generated for Chema singh/Anaid/Rosaleesmitting on: 09:26 AM EDT
--- OUTSIDE RECORDS SUMMARY | 2025-01-06 10:21 | XMS_ITS ---
Author Organization Sanket Saleem III, MD Address [address] [place] [address] [place] [address] Care Team Providers Care Infectious Disease Technician Name Role Phone Dr. Sanket Saleem III Primary Care Provider [phone] REASON FOR VISIT No Show Appt Social History Sex Assigned At : Social History Observation Description Sex Assigned At Male Encounters Encounter Location Date Provider Diagnosis Sanket Saleem III, MD [address] [place] [address] [place] [address] 01/06/2025 Sanket Saleem Plan Of Treatment Next Appt Details Provider Name:Sanket Saleem , 06/23/2025 04:15:00 PM, [address] [place] [address] [place], [address], Provider Name:Sanket Saleem , 04/12/2026 04:00:00 PM, [address] [place] [address] [place], [address], Progress Notes * Vicente LINDSAYDOB:1970 (54 yo M)Acc No.[id number]:01/06/2025 Patient: Vicente FRANCIS :1970 A ge:54 Y S ex:Male Address:[address] [place] [address], [id number] * true * Date: Generated for Chema singh/Anaid/Terra on: 1 09:27 AM EDT
--- OUTSIDE RECORDS SUMMARY | 2025-01-13 11:00 | XMS_ITS ---
Author Organization Sanket Saleem III, MD Address [address] [place] [address] [place] [address] Care Team Providers Care Historiographer Name Role Phone Dr. Sanket Saleem III Primary Care Provider Allergies Allergen (clinical drug ingredient) Drug/Non Drug Allergy documented on EMR Reaction Allergy Type Onset Date Status naproxen Naproxen Unknown Drug Allergy Active clonazepam Klonopin Unknown Drug Allergy Active indomethacin Indomethacin Unknown Drug Allergy A ctive indomethacin Indocin Unknown Drug Allergy Acti ve ibuprofen Ibuprofen Unknown Drug Allergy Active duloxetine Cymbalta Unknown Drug Allergy Active Shellfish (FN) Shellfish-derived Products Unknown Drug Allergy Active amlodipine Amlodipine Unknown Drug Allergy Activ e gabapentin Neurontin Unknown Drug Allergy Active REASON FOR VISIT Low back pain, Splenomegaly, Degenerative disc disease, Obesity, Chronic right upper quadrant abdominal pain, Hypertension, Benign prosthetic, Odynophagia Medications Medication SIG (Take, Route, Frequency, Duration) Notes Start Date End Date Status Valsartan 320 MG TAKE 1 TABLET BY EVERY DAY Active Fluconazole 100 MG 1 tablet Orally weekly 04/30/20 22 Active Fluconazole 100 MG 1 tablet Orally weekly 06/05/20 24 Active Fluconazole 100 MG 1 tablet Orally once a week 10/22/2023 Active Lisinopril 10 MG 1 tablet Orally Once a day 04/03/2024 Active Clobetasol Propionate 0.05 % APPLY TOPIC ALLY TO THE AFFECTED AREA TWICE DAILY Active Betamethasone Dipropionate Aug 0.05 % APPLY TOPICALLY TO THE AFFECTED AREA EVERY DAY Active amLODIPine Besylate 2.5 MG TAKE 1 TABLET BY MOUTH DAILY Oral Active Tylenol 325 MG 2 tablets as needed Orally every 6 hrs Active Amitriptyline HCl 50 MG 1 tablet Orally Once a day Active Social History Tobacco Use: Social History Observation Description Date Details (start date - stop date) Former Smoker NA - NA Sex Assigned At : Social History Observation Description Sex Assigned At Male Tobacco Use/Smoking Question Answer Notes Patient is a former smoker How long has it been since you last smoked? > 10 years Additional Findings: Tobacco Non-User Ex-cigaret te smoker Problems Problem Type SNOMED Code ICD Code Onset Dates Problem Status W/U Status Risk Notes Problem [id number] Odynophagia (R13.10) Active confirmed I ordered a barium swallow. We have discussed a GI referral or an ENT referral. Vital Signs Temperature 97.7 degrees Fahrenheit 01/14/20 25 Blood pressure systolic 136 mm Hg 01/14/20 25 Blood pressure diastolic 78 mm Hg 025 Heart Rate 95 /min 01/13/2025 Height 63 in in 01/13/2025 Weight 200 lbs 01/13/2025 BMI 35.42 kg/m2 01/13/2025 Encounters Encounter Location Date Provider Diagnosis Sanket Saleem III, MD [address] [place] [address] [facility] [place] [address] 01/13/2025 Sanket Saleem Hypertension I10 ; Odynophagia R13.10 ; Pityriasis versicolor B36.0 ; Migraine with aura G43.109 ; Splenomegaly R16.1 ; Obesity E66.9 ; Former smoker Z87.891 ; Right sided abdominal pain R10.9 ; Pulmonary nodules R91.8 and Cervical radiculopathy M54.12 Assessments Encounter Date Diagnosis (ICD Code) Assessment Notes Treat ment Notes Treatment Clinical Notes 01/13/2025 Hypertension (ICD-10 - I10) Pressures stable. No change in his regimen was needed today. 01/13/2025 Odynophagia (ICD-10 - R13.10) I ordered a barium swallow. We have discussed a GI referral or an ENT referral. 01/13/2025 Pityriasis versicolor (ICD-10 - B36.0) His skin is much improved today and no change in his regimen was needed. He is no longer taking medication for this. There was very little rash present At his request I refilled his triamcinolone. 01/13/2025 Migraine with aura (ICD-10 - G43.109) No migraines have occurred since his last visit. No change in his regimen was made today. 01/13/2025 Splenomegaly (ICD-10 - R16.1) I did not feel the tip of the spleen today on deep inspiration. No left upper quadrant abdominal pain has been present. He will be observed. 01/13/2025 Obesity (ICD-10 - E66.9) He has lost 3 pounds. . We have reviewed his weight loss plan. We discussed diet and nutrition. We made a plan to lose weight at a rate of one half of a pound per week. 01/13/2025 Former smoker (ICD-10 - Z87.891) He is highly motivated not to smoke. We discussed a plan to prevent relapse in times of stress or illness. 01/13/2025 Right sided abdominal pain (ICD-10 - R10.9) The examination today did not elicit this symptom.His discomfort is intermittent but still present. Will be observed carefully. 01/13/2025 Pulmonary nodules (ICD-10 - R91.8) A CT scan of the chest ordered by Dr. Ron showed several small nodules the largest being 3 mm with normal-sized mediastinal lymph nodes and a 1.4 cm right hilar node and thickening of the right major fissure. He has no pulmonary complaints. Radiologist differential diagnosis was pneumoconiosis versus neoplasm versus inflammation. I will discuss this with him and suggest for a consultation. 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 He will no longer take the dexamethasone. The pain is improved and should continue to do so. He will be followed. Plan Of Treatment Medication Medication Name Sig Start Date Stop Date Notes Valsartan 320 MG TAKE 1 TABLET BY TO TH EVERY DAY Fluconazole 100 MG 1 tablet Orally weekly 04/30/2022 Fluconazole 100 MG 1 tablet Orally weekly 06/05/2024 Fluconazole 100 MG 1 tablet Orally once a week 10/22/2023 Lisinopril 10 MG 1 tablet Orally Once a day 04/03/2024 Clobetasol Propionate 0.05 % APPLY TOPIC ALLY TO THE AFFECTED AREA TWICE DAILY Betamethasone Dipropionate A ug 0.05 % APPLY TOPICALLY TO THE AFFECTED AREA EVERY DAY amLODIPine Besylate 2.5 MG TAKE 1 TABLET BY MOUTH DAILY Oral Tylenol 325 MG 2 tablets as needed Orally every 6 hrs Amitriptyline HCl 50 MG 1 tablet Orally Once a day Pending Test Test Name Order Date XR CHEST 2 VIEW PA & LAT 01/13/2025 PFT with DLCO 01/13/2025 Next Appt Details Follow Up: 3 Months, Reason: ov Provider Name:Sanket Roque Harper , 06/23/2025 04:15:00 PM, [address] [facility] [address], [place], [address], Provider Name:Sanket Candida Saleem , 04/12/2026 04:00:00 PM, [address] [place] [address] [address], [place], [address], Progress Notes * Neftali LINDSAYjosefaDOB:1970 (54 yo M)Acc No.[id number]:01/13/2025 Progress Notes Patient: Vicente FRANCIS Provider: Christopher Saleem MD :1970 A ge:54 Y S ex:Male Date:01/13/2025 Address:[address] [place] [id number] Subjective: * Chief Complaints: * L ow back painSplenomegalyDegenerative disc diseaseObesityChronic right upper quadrant abdominal painHypertensionBenign prostheticOdynophagia * HPI: C OVID-19 Screening: He returns for management of medical. A new complaint is pain with swallowing. The pain is localized around the larynx. He denies that food gets stuck when he swallows. He has had no nausea or vomiting. He is quite concerned about his exposure to toxic chemicals over the years. A barium swallow has been ordered. The right upper quadrant abdominal pain which is chronic and for which no cause has been found continues to have mild levels. His pain is minimal today. He continues his efforts at weight loss. Questions H ave you had any new onset fever, chills, cough, congestion, sore throat, shortness of breath, muscle aches? N o * ROS: G eneral/Constitutional: pain R ecent pain in the neck with swalloowing, chronic right upper quadrant abdominal pain which is mild. C hills d enies. F atigue a dmits.?Fever d enies. E NT: Decreased hearing d enies. R espiratory: Cough d enies. C ardiovascular: Chest pain with exertion d enies. D yspnea on exertion?denies. S hortness of breath d enies. G astrointestinal: Constipation o ccasional. D ecreased appetite d enies. D iarrhea d enies. H eartburn d enies. N ausea d enies. R ectal bleeding d enies. V omiting d enies. H ematology: bruising d enies. p etechiae d enies. S wollen glands n one have been noted. G enitourinary: Frequent urination o nce a night. M usculoskeletal: Muscle aches d enies. P ainful joints d enies. S ciatica d enies. W eakness d enies. S kin: Itching d enies. R silvana d enies. S kin lesion(s)?denies. N eurologic: Difficulty speaking d enies. D izziness d enies.?Headache d enies. L ow back pain d enies. P sychiatric: Depressed mood w hich is mild. * Medical History: * Surgical History: c holecystectomy [id number] 1998vasectomy 07/2018No history * Hospitalization/Major Diagno stic Procedure: N o history * Family History: F ather: alive 70 yrs, alzheimer, hypertension, diagnosed with HTN. M other: alive 66 yrs, rheumatoid arthritis, diabetes, hypertension, diagnosed with DM, HTN. 2 brother(s) . 1 son(s) , 1 daughter(s) - healthy. . He has 2 brothers with hypertension. There is no family history of colon or pancreatic cancer. He is in a monogamous relationship with a very low risk of sexually transmitted disease. He has no history or family history of depression. He is not aware of any family history of substance use disorder, mental illness or addiction. * Social History: T obacco Use: T obacco Use/Smoking P atearnest is a f ormer smoker H ow long has it been since you last smoked??> 10 years A dditional Findings: Tobacco Non-User E x-cigarette smoker Charli roque has been twice currently to [place] since 2011. His first 's name was Erika. He has a daughter Tierra from the first marriage and one child, Samuel, from the current one. 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 He exercises 5 times a week and has no restrictions on his diet. He no longer smokes. He has had no exposure to asbestos. He was born in [facility]. A great uncle had throat cancer and one aunt had brain cancer. * Medications: T akingValsartan 320 MG Tablet TAKE 1 TABLET BY MOUTH EVERY DAY Betamethasone Dipropionate Aug 0.05 % Lotion APPLY TOPICALLY TO THE AFFECTED AREA EVERY DAY Clobetasol Propionate 0.05 % Ointment APPLY TOPICALLY TO THE AFFECTED AREA TWICE DAILY Amitriptyline HCl 50 MG Tablet 1 tablet Orally Once a day Tylenol 325 MG Tablet 2 tablets as needed Orally every 6 hrs amLODIPine Besylate 2.5 MG Tablet TAKE 1 TABLET BY MOUTH DAILY Oral Fluconazole 100 MG Tablet 1 tablet Orally weekly Lisinopril 10 MG Tablet 1 tablet Orally Once a day Fluconazole 100 MG Tablet 1 tablet Orally once a week Fluconazole 100 MG Tablet 1 tablet Orally weekly Medication List reviewed and reconciled with the patientTaking Valsartan 320 MG Tablet TAKE 1 TABLET BY MOUTH EVERY DAY Taking Betamethasone Dipropionate Aug 0.05 % Lotion APPLY TOPICALLY TO THE AFFECTED AREA EVERY DAY Taking Clobetasol Propionate 0.05 % Ointment APPLY TOPICALLY TO THE AFFECTED AREA TWICE DAILY Taking Amitriptyline HCl 50 MG Tablet 1 tablet Orally Once a day Taking Tylenol 325 MG Tablet 2 tablets as needed Orally every 6 hrs Taking amLODIPine Besylate 2.5 MG Tablet TAKE 1 TABLET BY MOUTH DAILY Oral Taking Fluconazole 100 MG Tablet 1 tablet Orally weekly Taking Lisinopril 10 MG Tablet 1 tablet Orally Once a day Taking Fluconazole 100 MG Tablet 1 tablet Orally once a week Taking Fluconazole 100 MG Tablet 1 tablet Orally weekly Medication List reviewed and reconciled with the patient * Allergies: N eurontinKlonopinCymbaltaIndocinIbuprofenIndomethacinNaproxenShellfish-derived ProductsAmlodipineno[Allergies Verified] Objective: * Vitals: H t: 63 in, Wt: 200, BMI:35.42, BP: 136/78, HR: 95, Temp: 97.7, Wt-k.72. * Examination: G eneral Examination: GENERAL APPEARANCE: p leasant, well nourished, well developed, in no acute distress, calm and relaxed, obese, man. HEAD: a traumatic, normocephalic. EYES: e cash, perrla, anicteric, conjugate. EARS: n ormal. NOSE: s eptum intact. ORAL CAVITY: n ormal, unremarkable. NECK/THYROID: n o jugular venous distention, no carotid bruit, thyroid normal. LYMPH NODES: n o enlarged lymph nodes,spleen normal. SKIN: n o suspicious lesions, anicteric. HEART: n o clicks, gallops, murmurs, or rubs, regular rhythm, S1, S2 normal, no s3, or vascular bruits. LUNGS: c lear to auscultation . BREASTS: no masses palpable bilaterally. ABDOMEN: b owel sounds normal, no ascites, no organomegaly, no mass, centripital obesity. RECTAL EXAM: n ot examined. MUSCULOSKELETAL: e xtremities unremarkable, no clubbing, cyanosis or edema. PERIPHERAL PULSES: n ormal. NEUROLOGIC: a lert and oriented, cranial nerves 2-12 grossly intact, deep tendon reflexes 2+ symmetrical, motor strength normal upper and lower extremities, sensory exam intact. PSYCH: a lert, oriented. Assessment: * Assessment: 1. O dynophagia - R13.10 (Primary) N otes :I ordered a barium swallow. We have discussed a GI referral or an ENT referral. 2 . H ypertension - I10 N otes :Pressures stable. No change in his regimen was needed today. 3 . P ityriasis versicolor - B36.0 N otes :His skin is much improved today and no change in his regimen was needed. He is no longer taking medication for this. There was very little rash present At his request I refilled his triamcinolone. 4 . M igraine with aura - G43.109 N otes :No migraines have occurred since his last visit. No change in his regimen was made today. 5 . S plenomegaly - R16.1 N otes :I did not feel the tip of the spleen today on deep inspiration. No left upper quadrant abdominal pain has been present. He will be observed. 6 . O besity - E66.9 N otes :He has lost 3 pounds. . We have reviewed his weight loss plan. We discussed diet and nutrition. We made a plan to lose weight at a rate of one half of a pound per week. 7 . F ormer smoker - Z87.891 N otes :He is highly motivated not to smoke. We discussed a plan to prevent relapse in times of stress or illness. 8 . R ight sided abdominal pain - R10.9 N otes :The examination today did not elicit this symptom.His discomfort is intermittent but still present. Will be observed carefully. 9 . P ulmonary nodules - R91.8 N otes :A CT scan of the chest ordered by Dr. Ron showed several small nodules the largest being 3 mm with normal-sized mediastinal lymph nodes and a 1.4 cm right hilar node and thickening of the right major fissure. He has no pulmonary complaints. Radiologist differential diagnosis was pneumoconiosis versus neoplasm versus inflammation. I will discuss this with him and suggest for a consultation. 1 0. 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 He will no longer take the dexamethasone. The pain is improved and should continue to do so. He will be followed. Plan: * Treatment: 2. O thers Continue Valsartan Tablet, 320 MG, TAKE 1 TABLET BY MOUTH EVERY DAY; C ontinue Betamethasone Dipropionate Aug Lotion, 0.05 %, APPLY TOPICALLY TO THE AFFECTED AREA EVERY DAY; C ontinue Clobetasol Propionate Ointment, 0.05 %, APPLY TOPICALLY TO THE AFFECTED AREA TWICE DAILY. * Imaging: * I maging: XR CHEST 2 VIEW PA & LAT I maging: PFT with DLCO * Procedure Codes: * Preventive Medicine: Counseling: C are goal follow-up plan: Counseling for abnormal BMI given Y es Above Normal BMI Follow-up D ietary management education, guidance, and counseling, Dietary needs education, Exercise promotion: strength training, Exercise promotion: stretching, Feeding regime, Giving encouragement to exercise, Lifestyle education regarding diet, Nutrition / feeding management, Nutrition therapy, Prescribed activity/exercise education, Prescribed diet education, Prescribed dietary intake, Special diet education, Weight monitoring , Intervention, Order not done: Medical or Other reason not done S moking/Tobacco Use Patient counseled on the dangers of tobacco use and urged to quit. 0 01/13/2025 * Follow Up: 3 Months (Reason: ov) * Images: * Sign off status: Completed true * Provider: Christopher Saleem MD Date: 0 01/13/2025 Generated for Chema singh/Anaid/Madelineitting on: 1 09:26 AM EDT History and Physical Notes * HPI (History of Present Illness) Category Sub-Category Detail Notes COVID-19 Screening Questions Have you had any new onset fever, chills, cough, congestion, sore throat, shortness of breath, muscle aches?: No Examination Category Sub-Category Detail Notes General Examination GENERAL APPEARANCE: pleasant , well nourished, well developed, in no acute distress, calm and relaxed, obese, man HEAD: atraumatic, normocep halic EYES: eomi, perrla, anicte renaldo, conjugate EARS: normal NOSE: septum intact NECK/THYROID: no jugular venous di stention, no carotid bruit, thyroid normal HEART: no clicks, gallops, murmurs, or rubs, regular rhythm, S1, S2 normal, no s3, or vascular bruits LUNGS: clear to auscultatio n ABDOMEN: bowel sounds normal, no ascites, no organomegaly, no mass, centripital obesity NEUROLOGIC: alert and oriented, cranial nerves 2-12 grossly intact, deep tendon reflexes 2+ symmetrical, motor strength normal upper and lower extremities, sensory exam intact SKIN: no suspicious lesion s, anicteric PERIPHERAL PULSES: normal BREASTS: no masses palpable b ilaterally MUSCULOSKELETAL: extremities unremark able, no clubbing, cyanosis or edema LYMPH NODES: no enlarged lymph no regan,spleen normal RECTAL EXAM: not examined PSYCH: alert, oriented ORAL CAVITY: normal, unremarkable
--- OUTSIDE RECORDS SUMMARY | 2025-01-29 10:00 | XMS_ITS ---
Author Organization Sanket Saleem III, MD Address [address] [place] [address] [place] [address] Care Team Providers Care Curtain Cutter Hand Name Role Phone Dr. Sanket Saleem III Primary Care Provider [phone] Allergies Allergen (clinical drug ingredient) Drug/Non Drug [...] e gabapentin Neurontin Unknown Drug Allergy Active Results Component Value Reference Range Notes Lipid Panel Reviewed date:04/06/2025 04:48:22 AM Interpretation: Performing Lab:[facility], [address] [place] [phone] Notes/Report: Triglycerides 160 <150 mg/dL Desirable Triglyceride: less than 150 mg/dL Borderline High Triglyceride 150-199 mg/dL High Triglyceride: 200-499 mg/dL Very High Triglyceride: greater than or equal to 5OO mg/dL Cholesterol 190 <200 mg/dL Desirable Cholesterol: less than 200 mg/dL Borderline High Cholesterol: 200-239 mg/dL High Cholesterol: greater than 239 mg/dL LDL Cholesterol Calculated 124 <100 mg/dL Desirable LDL: less than 100 mg/dL Near Optimal/Above Optimal LDL: 110-129 mg/dL Borderline High LDL: 130-159 mg/dL High LDL: 160-189 mg/dL Very High LDL: greater than or equal to 190 mg/dL HDL Cholesterol 34 >40 mg/dL Desirable HDL: greater than 40 mg/dL Note: This HDL assay may give artificially low results in patients with liver disease. REASON FOR VISIT Dyspnea, Hypertension, Pityriasis, Low back pain, Obesity Medications Medication SIG (Take, Route, Frequency, Duration) Notes Start Date End Date Status Fluconazole 100 MG 1 tablet Orally once a week 10/22/2023 Active Clobetasol Propionate 0.05 % APPLY TOPIC ALLY TO THE AFFECTED AREA TWICE DAILY Active Valsartan 320 MG TAKE 1 TABLET BY TO TH EVERY DAY Active Betamethasone Dipropionate Aug 0.05 % APPLY TOPICALLY TO THE AFFECTED AREA EVERY DAY Active Fluconazole 100 MG 1 tablet Orally weekly 06/05/20 24 Active Fluconazole 100 MG 1 tablet Orally weekly 04/30/20 22 Active Lisinopril 10 MG 1 tablet Orally Once a day 04/03/2024 Active Tylenol 325 MG 2 tablets as needed Orally every 6 hrs Active amLODIPine Besylate 2.5 MG TAKE 1 TABLET BY MOUTH DAILY Oral Active Amitriptyline HCl 50 MG 1 tablet [...] Problem Status W/U Status Risk Notes Problem [id number] Dyspnea on exertion (R06.09) Active confirmed The pulmonary function tests are normal. Comprehensive blood work was ordered and will be reviewed. Vital Signs Temperature 98.2 degrees Fahrenheit 01/30/20 25 Blood pressure systolic 135 mm Hg 01/30/20 25 Blood pressure diastolic 80 mm Hg 025 Height 63 in in 01/29/2025 Weight 199 lbs 01/29/2025 BMI 35.25 kg/m2 01/29/2025 Oximetry 98 % 01/29/2025 Encounters Encounter Location Date Provider Diagnosis Sanket Saleem III, MD [address] [place] [address] [place] [address] 01/29/2025 Sanket Saleem Pityriasis versicolo r B36.0 ; Dyspnea on exertion R06.09 ; Former smoker Z87.891 ; Obesity E66.9 ; Splenomegaly R16.1 ; Hypertension I10 and Right sided abdominal pain R10.9 Assessments Encounter Date Diagnosis (ICD Code) Assessment Notes Treatment Notes Treatment Clinical Notes 01/29/2025 Pityriasis versicolor (ICD-10 - B36.0) His skin is much improved today and no change in his regimen was needed. He is no longer taking medication for this. There was very little rash present At his request I refilled his triamcinolone. 01/29/2025 Dyspnea on exertion (ICD-10 - R06.09) The pulmonary function tests are normal. Comprehensive blood work was ordered and will be reviewed. 01/29/2025 Former smoker (ICD-10 - Z87.891) He is highly motivated not to smoke. We discussed a plan to prevent relapse in times of stress or illness. 01/29/2025 Obesity (ICD-10 - E66.9) He has lost 3 pounds. . We have reviewed his weight loss plan. We discussed diet and nutrition. We made a plan to lose weight at a rate of one half of a pound per week. 01/29/2025 Splenomegaly (ICD-10 - R16.1) I did not feel the tip of the spleen today on deep inspiration. No left upper quadrant abdominal pain has been present. He will be observed. 01/29/2025 Hypertension (ICD-10 - I10) Pressures stable. No change in his regimen was needed today. 01/29/2025 Right sided abdominal pain (ICD-10 - R10.9) The examination today did not elicit this symptom.His discomfort is intermittent but still present. Will be observed carefully. Plan Of Treatment Medication Medication Name Sig Start Date Stop Date Notes Fluconazole 100 MG 1 tablet Orally once a week 10/22/2023 Clobetasol Propionate 0.05 % APPLY TOPIC ALLY TO THE AFFECTED AREA TWICE DAILY Valsartan 320 MG TAKE 1 TABLET BY TO TH EVERY DAY Betamethasone Dipropionate A ug 0.05 % APPLY TOPICALLY TO THE AFFECTED AREA EVERY DAY Fluconazole 100 MG 1 tablet Orally weekly 06/05/2024 Fluconazole 100 MG 1 tablet Orally weekly 04/30/2022 Lisinopril 10 MG 1 tablet Orally Once a day 04/03/2024 Tylenol 325 MG 2 tablets as needed Orally every 6 hrs amLODIPine Besylate 2.5 MG TAKE 1 TABLET BY MOUTH DAILY Oral Amitriptyline HCl 50 MG 1 tablet Orally Once a day Pending Test Test Name Order Date PROFILE, FASTING (COMPREHENSIVE METABOLI C) 01/29/2025 PSA, TOTAL 01/29/2025 CBC w DIFF 01/29/2025 D Dimer 01/29/2025 ECG 12 lead EKG 01/29/2025 Next Appt Details Follow Up: 2 Weeks, Reason: ov Provider Name:Sanket Saleem , 06/23/2025 04:15:00 PM, [address] [place] [address] [address], [place], [address], Provider Name:Sanket Saleem , 04/12/2026 04:00:00 PM, [address] [place] [address] [address], [place], [address], Progress Notes * RENEVicenteDOB:1970 (54 yo M)Acc No.[id number]:01/29/2025 Progress Notes Patient: Vicente FRANCIS Provider: Christopher Saleem MD :1970 A ge:54 Y S ex:Male Date:01/29/2025 Address:[address] [place] [phone] Subjective: * Chief Complaints: * D yspneaHypertensionPityriasisLow back painObesity * HPI: C OVID-19 Screening: He returns after pulmonary function tests to review the results. He had complained of shortness of breath with exertion. His pulmonary function tests are completely within normal limits. There was no restrictive or obstructive defect. He will continue working as he has been. He is not smoking. He is going to have comprehensive blood work tomorrow morning. Questions H ave you had any new onset fever, chills, cough, congestion, sore throat, shortness of breath, muscle aches? N o * ROS: G eneral/Constitutional: pain C hronic pain right upper quadrant abdomen. C hills d enies. F atigue a dmits. F ever d enies. E NT: Decreased hearing d enies. R espiratory: Cough d enies. C ardiovascular: Chest pain with exertion d enies. D yspnea on exertion?with moderate activity. S hortness of breath d enies. G astrointestinal: Constipation d enies. D ecreased appetite d enies.?Diarrhea d enies. H eartburn d enies. N ausea d enies. R ectal bleeding?denies. V omiting d enies. H ematology: bruising [...] pain d enies. P sychiatric: Depressed mood d enies. * Medical History: * Surgical History: c holecystectomy [id number] 1998vasectomy 07/2018No history * Hospitalization/Major Diagno stic [...] T obacco Use: T obacco Use/Smoking P atient is a f ormer smoker H ow long has it been since you last smoked??> 10 years A dditional Findings: Tobacco Non-User E x-cigarette smoker H e has been twice currently to [place] since 2011. His first 's name was Erika. He has a daughter Tierra from the first marriage and one child, Samuel, from the current one. 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 He exercises 5 times a week and has no restrictions on his diet. He no longer smokes. He has had no exposure to asbestos. He was born in [facility]. A great uncle had throat cancer and [...] * Vitals: H t: 63 in, Wt: 199, BMI:35.25, BP: 135/80, Temp: 98.2, Oxygen sat %: 98, Wt-k.26. * Examination: G eneral Examination: GENERAL APPEARANCE: [...] a lert, oriented. Assessment: * Assessment: 1. D yspnea on exertion - R06.09 (Primary) N otes :The pulmonary function tests are normal. Comprehensive blood work was ordered and will be reviewed. 2 . P ityriasis versicolor - B36.0 N otes :His skin is much improved today and no change in his regimen was needed. He is no longer taking medication for this. There was very little rash present At his request I refilled his triamcinolone. 3 . F ormer smoker - Z87.891 N otes :He is highly motivated not to smoke. We discussed a plan to prevent relapse in times of stress or illness. 4 . O besity - E66.9 N otes :He has lost 3 pounds. . We have reviewed his weight loss plan. We discussed diet and nutrition. We made a plan to lose weight at a rate of one half of a pound per week. 5 . S plenomegaly - R16.1 N otes :I did not feel the tip of the spleen today on deep inspiration. No left upper quadrant abdominal pain has been present. He will be observed. 6 . H ypertension - I10 N otes :Pressures stable. No change in his regimen was needed today. 7 . R ight sided abdominal pain - R10.9 N otes :The examination today did not elicit this symptom.His discomfort is intermittent but still present. Will be observed carefully. Plan: * Treatment: Value Reference Range T riglycerides 160 H <150 - mg/dL * C holesterol 190 <200 - mg/dL * L DL Cholesterol Calculated 124 H <100 - mg/dL * H DL Cholesterol 34 L >40 - mg/dL 2.?Obesity?LAB: PROFILE, FASTING (COMPREHENSIVE METABOLIC) ?LAB: PSA, TOTAL ?LAB: CBC w DIFF ?LAB: D Dimer ?LAB: Lipid Panel (Collection Date & Time - 01/30/2025 07:21 AM)* Value Reference Range T riglycerides 160 H <150 - mg/dL * C holesterol 190 <200 - mg/dL * L DL Cholesterol Calculated 124 H <100 - mg/dL * H DL Cholesterol 34 L >40 - mg/dL 3.?Others? Continue Valsartan Tablet, 320 MG, TAKE 1 TABLET BY MOUTH EVERY DAY;?Continue Betamethasone Dipropionate Aug Lotion, 0.05 %, APPLY TOPICALLY TO THE AFFECTED AREA EVERY DAY;?Continue Clobetasol Propionate Ointment, 0.05 %, APPLY TOPICALLY TO THE AFFECTED AREA TWICE DAILY.?? * Imaging: * I maging: Stress Test I maging: ECG 12 lead EKG * Procedure Codes: 9 4760 MEASURE BLOOD OXYGEN LEVEL * Preventive Medicine: Counseling: C are goal [...] tobacco use and urged to quit. 0 01/29/2025 * Follow Up: 2 Weeks (Reason: ov) * Images: * Sign off status: Completed true * Provider: Christopher Saleem MD Date: 0 01/29/2025 Generated for Leni samantha/Anaid/eTransmitting on: 09:25 AM EDT History and Physical Notes * [...]
--- OUTSIDE RECORDS SUMMARY | 2025-02-03 05:42 | XMS_ITS ---
Author Organization Sanket Saleem III, MD Address [address] [place] [address] [place] [address] Care Team Providers Care Case Resource Manager Name Role Phone Dr. Sanket Saleem III Primary Care Provider REASON FOR VISIT Stress test Order Social History Sex Assigned At : Social History Observation Description Sex Assigned At Male Encounters Encounter Location Date Provider Diagnosis Sanket Saleem III, MD [address] [place] [address] [place] [address] 02/03/2025 Sanket Saleem Atypical chest pain R07.89 Assessments Encounter Date Diagnosis (ICD Code) Assessment Notes Treatment Notes Treatment Clinical Notes 02/03/2025 Atypical chest pain (ICD-10 - R07.89) Plan Of Treatment Pending Test Test Name Order Date Stress Test 02/03/2025 Next Appt Details Provider Name:Sanket Saleem , 06/23/2025 04:15:00 PM, [address] [place] [address] [place], [address], Provider Name:Sanket Saleem , 04/12/2026 04:00:00 PM, [address] [place] [address] [place], [address], Progress Notes * Vicente LINDSAYDOB:1970 (54 yo M)Acc No.[id number]:02/03/2025 Patient: Y OUVicente SINGH :1970 A ge:54 Y S ex:Male Address:[address] [place] [address], [phone] Subjective: * Chief Complaints: * S tress test Order * Medical History: * Surgical History: * Hospitalization/Major Diagno stic Procedure: * Medications: Objective: * Vitals: * Physical Examination: Assessment: * Assessment: 1. A typical chest pain - R07.89 Plan: * Treatment: * Procedure Codes: * true * Date: Generated for Chema singh/Anaid/eTrianasmitting on: 1 09:26 AM EDT
--- OUTSIDE RECORDS SUMMARY | 2025-03-25 05:35 | XMS_ITS ---
Author Organization Sanket Saleem III, MD Address [address] [place] [address] [place] [address] Care Team Providers Care Flavor Room Worker Name Role Phone Dr. Sanket Saleem III Primary Care Provider REASON FOR VISIT High BP Social History Sex Assigned At : Social History Observation Description Sex Assigned At Male Encounters Encounter Location Date Provider Diagnosis Sanket Saleem III, MD [address] [place] [address] [place] [address] 03/25/2025 Sanket Saleem Plan Of Treatment Next Appt Details Provider Name:Sanket Saleem , 06/23/2025 04:15:00 PM, [address] [place] [address] [place], [address], Provider Name:Sanket Saleem , 04/12/2026 04:00:00 PM, [address] [place] [address] [place], [address], Progress Notes * Vicente LINDSAYDOB:1970 (54 yo M)Acc No.[id number]:03/25/2025 Patient: Vicente FRANCIS :1970 A ge:54 Y S ex:Male Address:[address] [place] [address], [phone] * true * Date: Generated for Chema singh/Anaid/Terra on: 1 09:25 AM EDT
--- OUTSIDE RECORDS SUMMARY | 2025-03-30 09:00 | XMS_ITS ---
Author Organization Sanket Saleem III, MD Address [address] [place] [address] [place] [address] Care Team Providers Care Yard Truck Driver Name Role Phone Dr. Sanket Saleem III Primary Care Provider [phone] Allergies Allergen (clinical drug ingredient) Drug/Non Drug [...] Unknown Drug Allergy Active REASON FOR VISIT Hypertension Medications Medication SIG (Take, Route, Frequency, Duration) Notes Start Date End Date Status Atenolol 50 MG 1 tablet Orally Once a day for 30 days 03/30/2025 Active Atenolol 50 MG TAKE 1 TABLET BY TO TH DAILY Active Tylenol 325 MG 2 tablets as needed Orally every 6 hrs Active Fluconazole 100 MG 1 tablet Orally weekly 06/05/20 24 Active Lisinopril 10 MG 1 tablet Orally Once a day 04/03/2024 Active amLODIPine Besylate 2.5 MG TAKE 1 TABLET BY MOUTH DAILY Oral Active Amitriptyline HCl 50 MG 1 tablet Orally Once a day Active Clobetasol Propionate 0.05 % APPLY TOPIC ALLY TO THE AFFECTED AREA TWICE DAILY Active Betamethasone Dipropionate Aug 0.05 % APPLY TOPICALLY TO THE AFFECTED AREA EVERY DAY Active Valsartan 320 MG TAKE 1 TABLET BY TO TH EVERY DAY Active Social History Tobacco Use: Social History Observation Description Date Details (start date - stop date) Former Smoker NA - NA Sex Assigned At : Social History Observation Description Sex Assigned At Male Tobacco Use/Smoking Question Answer Notes Patient is a former smoker How long has it been since you last smoked? > 10 years Additional Findings: Tobacco Non-User Ex-cigaret te smoker Vital Signs Temperature 97.5 degrees Fahrenheit 03/30/20 25 Blood pressure systolic 148 mm Hg 03/30/20 25 Blood pressure diastolic 88 mm Hg 025 Heart Rate 90 /min 03/30/2025 Respiratory Rate 16 /min 03/30/2025 Height 63 in in 03/30/2025 Weight 206 lbs 03/30/2025 BMI 36.49 kg/m2 03/30/2025 Encounters Encounter Location Date Provider Diagnosis Sanket Saleem III, MD [address] [place] [address] [place] [address] 03/30/2025 Sanket Saleem Pityriasis versicolo r B36.0 ; Hypertension I10 ; Migraine with aura G43.109 ; 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 He is no longer taking medication for this. There was very little rash present At his request I refilled his triamcinolone. 03/30/2025 Hypertension (ICD-10 - I10) His blood pressure has been elevated at home recently. In the office today was consistently 148/88. This was lying down. I have added atenolol 50 mg once a day to his regimen. 03/30/2025 Migraine with aura (ICD-10 - G43.109) No migraines have occurred since his last visit. No change in his regimen was made today. 03/30/2025 Intervertebral disc disorder of lumbar region with myelopathy (ICD-10 - M51.06) The patient is occasional and mild at this time. No change in his regimen as needed. 03/30/2025 Splenomegaly (ICD-10 - R16.1) I did not feel the tip of the spleen today on deep inspiration. No left upper quadrant abdominal pain has been present. He will be observed. 03/30/2025 Former smoker (ICD-1 0 - Z87.891) He is highly motivated not to smoke. We discussed a plan to prevent relapse in times of stress or illness. 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 He will no longer take the dexamethasone. The pain is improved and should continue to do so. He will be followed. 03/30/2025 Obesity (ICD-10 - E66.9) He has lost 3 pounds. . We have reviewed his weight loss plan. We discussed diet and nutrition. We made a plan to lose weight at a rate of one half of a pound per week. Plan Of Treatment Medication Medication Name Sig Start Date Stop Date Notes Atenolol 50 MG 1 tablet Orally Once a day for 30 days 03/30/2025 Atenolol 50 MG TAKE 1 TABLET BY TO TH DAILY Tylenol 325 MG 2 tablets as needed Orally every 6 hrs Fluconazole 100 MG 1 tablet Orally weekly 06/05/2024 Lisinopril 10 MG 1 tablet Orally Once a day 04/03/2024 amLODIPine Besylate 2.5 MG TAKE 1 TABLET BY MOUTH DAILY Oral Amitriptyline HCl 50 MG 1 tablet Orally Once a day Clobetasol Propionate 0.05 % APPLY TOPIC ALLY TO THE AFFECTED AREA TWICE DAILY Betamethasone Dipropionate A ug 0.05 % APPLY TOPICALLY TO THE AFFECTED AREA EVERY DAY Valsartan 320 MG TAKE 1 TABLET BY TO TH EVERY DAY Next Appt Details Follow Up: As Scheduled, Rocío son: Annual Exam Provider Name:Sanket Saleem , 06/23/2025 04:15:00 PM, [address] [place] [address] [address], [place], [address], Provider Name:Sanket Saleem , 04/12/2026 04:00:00 PM, [address] [place] [address] [place], [address], Progress Notes * Vicente LINDSAYDOB:1970 (54 yo M)Acc No.[id number]:03/30/2025 Progress Notes Patient: Vicente FRANCIS Provider: Christopher Saleem MD :1970 A ge:54 Y S ex:Male Date:03/30/2025 Address:[address] [place], [place] [phone] Subjective: * Chief Complaints: * H ypertension * HPI: C OVID-19 Screening: He comes to the office today because his blood pressure has been running high. It was elevated today after lying down. I have added 50 mg of atenolol to this morning regimen in aaddition to the lisinopril. He was given a followup appointment. He has been having more migraines and headaches lately. He has an appointment near future with his neurologist in [place]. His chronic abdominal pain and back pain are still present but did not prevented him from working and have not increased. Questions H ave you had any new onset fever, chills, cough, congestion, sore throat, shortness of breath, muscle aches? N o * ROS: G eneral/Constitutional: pain C hronic right upper quadrant abdominal pain, Neck pain. C hills d enies. F atigue a [...] speaking d enies. D izziness d enies.?Headache M igraines. Stress headaches more frequent than usual recently. L ow back pain d enies. P sychiatric: Depressed mood d enies. * Medical History: * Surgical History: c holecystectomy [id number] 1998vasectomy 07/2018No history * Hospitalization/Major Diagno stic [...] Findings: Tobacco Non-User E x-cigarette smoker H jude has been twice currently to [place] since 2011. His first 's name was Erika. He has a daughter Tierra from the first marriage and one child, Samuel, from the current one. 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 He exercises 5 times a week and has no restrictions on his diet. He no longer smokes. He has had no exposure to asbestos. He was born in [facility]. A great uncle had throat cancer and [...] tablets as needed Orally every 6 hrs Fluconazole 100 MG Tablet 1 tablet Orally weekly Taking Valsartan 320 MG Tablet TAKE 1 TABLET [...] as needed Orally every 6 hrs Taking Fluconazole 100 MG Tablet 1 tablet Orally weekly DiscontinuedamLODIPine Besylate 2.5 MG Tablet TAKE 1 TABLET BY MOUTH DAILY Oral Lisinopril 10 MG Tablet 1 tablet Orally Once a day Fluconazole 100 MG Tablet 1 tablet Orally weekly Fluconazole 100 MG Tablet 1 tablet Orally once a week Medication List reviewed and reconciled with the patientDiscontinued amLODIPine Besylate 2.5 MG Tablet TAKE 1 TABLET BY MOUTH DAILY Oral Discontinued Lisinopril 10 MG Tablet 1 tablet Orally Once a day Discontinued Fluconazole 100 MG Tablet 1 tablet Orally weekly Discontinued Fluconazole 100 MG Tablet 1 tablet Orally once a week Medication List reviewed and reconciled with the patient * Allergies: N eurontinKlonopinCymbaltaIndocinIbuprofenIndomethacinNaproxenShellfish-derived ProductsAmlodipineno[Allergies Verified] Objective: * Vitals: H t: 63 in, Wt: 206, BMI:36.49, BP: 148/88, HR: 90, RR: 16, Temp: 97.5, Wt-k.44. * Examination: G eneral Examination: GENERAL APPEARANCE: p leasant, well nourished, well developed, in no acute distress, calm and relaxed: obese: man. HEAD: a traumatic, normocephalic. EYES: e [...] sounds normal, no ascites, no organomegaly, no mass: centripital obesity, Right upper quadrant unremarkable. RECTAL EXAM: n ot examined. MUSCULOSKELETAL: e xtremities unremarkable, no clubbing, cyanosis or edema. PERIPHERAL PULSES: n ormal. NEUROLOGIC: a lert and oriented, cranial nerves 2-12 grossly intact, deep tendon reflexes 2+ symmetrical, motor strength normal upper and lower extremities, sensory exam intact. PSYCH: a lert, oriented. Assessment: * Assessment: 1. H ypertension - I10 (Primary) N otes :His blood pressure has been elevated at home recently. In the office today was consistently 148/88. This was lying down. I have added atenolol 50 mg once a day to his regimen. 2 . P ityriasis versicolor - B36.0 N otes :His skin is much improved today and no change in his regimen was needed. He is no longer taking medication for this. There was very little rash present At his request I refilled his triamcinolone. 3 . M igraine with aura - G43.109 N otes :No migraines have occurred since his last visit. No change in his regimen was made today. 4 . I ntervertebral disc disorder of lumbar region with myelopathy - M51.06? Notes :The patient is occasional and mild at this time. No change in his regimen as needed. 5 . S plenomegaly - R16.1 N otes :I did not feel the tip of the spleen today on deep inspiration. No left upper quadrant abdominal pain has been present. He will be observed. 6 . F ormer smoker - Z87.891 N otes :He is highly motivated not to smoke. We discussed a plan to prevent relapse in times of stress or illness. 7 . 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 He will no longer take the dexamethasone. The pain is improved and should continue to do so. He will be followed. 8 . O besity - E66.9 N otes :He has lost 3 pounds. . We have reviewed his weight loss plan. We discussed diet and nutrition. We made a plan to lose weight at a rate of one half of a pound per week. Plan: * Treatment: 2. P ityriasis versicolor Continue Amitriptyline HCl Tablet, 50 MG, 1 tablet, Orally, Once a day; C ontinue Tylenol Tablet, 325 MG, 2 tablets as needed, Orally, every 6 hrs; C ontinue amLODIPine Besylate Tablet, 2.5 MG, TAKE 1 TABLET BY MOUTH DAILY, Oral; C ontinue Lisinopril Tablet, 10 MG, 1 tablet, Orally, Once a day; C ontinue Fluconazole Tablet, 100 MG, 1 tablet, Orally, weekly; S tart Atenolol Tablet, 50 MG, 1 tablet, Orally, Once a day, 30 days, 30. 3. O thers Continue Valsartan Tablet, 320 MG, TAKE 1 TABLET BY MOUTH EVERY DAY; C ontinue Betamethasone Dipropionate Aug Lotion, 0.05 %, APPLY TOPICALLY TO THE AFFECTED AREA EVERY DAY; C ontinue Clobetasol Propionate Ointment, 0.05 %, APPLY TOPICALLY TO THE AFFECTED AREA TWICE DAILY. * Procedure Codes: * Preventive Medicine: Counseling: [...] tobacco use and urged to quit. 0 03/30/2025 * Follow Up: A s Scheduled (Reason: Annual Exam) * Images: * Sign off status: Completed true * Provider: Christopher Saleem MD Date: 0 03/30/2025 Generated for Chema singh/Anaid/Terra on: 1 09:26 AM EDT History and Physical Notes * HPI (History of Present Illness) Category Sub-Category Detail Notes COVID-19 Screening Questions Have you had any new onset fever, chills, cough, congestion, sore throat, shortness of breath, muscle aches?: No Examination Category Sub-Category Detail Notes General Examination GENERAL APPEARANCE: pleasant , well nourished, well developed, in no acute distress, calm and relaxed: obese: man HEAD: atraumatic, normocep halic EYES: eomi, perrla, anicte renaldo, conjugate EARS: normal NOSE: septum intact NECK/THYROID: no jugular venous di stention, no carotid bruit, thyroid normal HEART: no clicks, gallops, murmurs, or rubs, regular rhythm, S1, S2 normal, no s3, or vascular bruits LUNGS: clear to auscultatio n ABDOMEN: bowel sounds normal, no ascites, no organomegaly, no mass: centripital obesity, Right upper quadrant unremarkable NEUROLOGIC: alert and oriented, cranial nerves 2-12 [...]
--- OUTSIDE RECORDS SUMMARY | 2025-04-09 10:00 | XMS_ITS ---
Author Organization Sanket Saleem III, MD Address [address] [place] [address] [place] [address] Care Team Providers Care Client Service Associate Name Role Phone Dr. Sanket Saleem III Primary Care Provider [phone] Allergies Allergen (clinical drug ingredient) Drug/Non Drug Allergy documented on EMR Reaction Allergy Type Onset Date Status naproxen Naproxen Unknown Drug Allergy Active clonazepam Klonopin Unknown Drug Allergy Active indomethacin Indomethacin Unknown Drug Allergy A ctive indomethacin Indocin Unknown Drug Allergy Acti ve ibuprofen Ibuprofen Unknown Drug Allergy Active duloxetine Cymbalta Unknown Drug Allergy Active Lactose Intolerance Unknown Allergy Active Shellfish (FN) Shellfish-derived Products Unknown Drug Allergy Active amlodipine Amlodipine Unknown Drug Allergy Activ e gabapentin Neurontin Unknown Drug Allergy Active REASON FOR VISIT Annual Exam Medications Medication SIG (Take, Route, Frequency, Duration) Notes Start Date End Date Status amLODIPine Besylate 2.5 MG TAKE 1 TABLET BY MOUTH DAILY Oral Active Lisinopril 10 MG 1 tablet Orally Once a day 04/03/2024 Active Fluconazole 100 MG 1 tablet Orally weekly 06/05/20 24 Active Ketoconazole 2 % 1 application Cut Out Marker ally Once a day for 28 days 04/09/2025 Active Breo Ellipta 200-25 MCG/ACT INHALE 1 PUF F BY MOUTH DAILY Inhalation Active Valsartan 320 MG TAKE 1 TABLET BY TO TH EVERY DAY Active Betamethasone Dipropionate Aug 0.05 % APPLY TOPICALLY TO THE AFFECTED AREA EVERY DAY Active Clobetasol Propionate 0.05 % APPLY TOPICALLY TO THE AFFECTED AREA TWICE DAILY Active Amitriptyline HCl 50 MG 1 tablet Orally Once a day Active Tylenol 325 MG 2 tablets as needed Orally every 6 hrs Active Atenolol 50 MG TAKE 1 TABLET BY TO TH DAILY Active Social History Tobacco Use: Social History Observation Description Date Details (start date - stop date) Former Smoker NA - NA Sex Assigned At : Social History Observation Description Sex Assigned At Male Tobacco Control (Standard) Question Answer Notes Tobacco use: Former smoker How long has it been since you last smoked? Grea ter than 10 years Additional Findings: Tobacco non-user Ex-cigaret te smoker AUDIT-C (Standard) Question Answer Notes Did you have a drink containing alcohol in the p ast year? No Points 0 Interpretation Negative Vital Signs Temperature 98.4 degrees Fahrenheit 04/09/20 25 Blood pressure systolic 140 mm Hg 04/09/20 25 Blood pressure diastolic 82 mm Hg 025 Heart Rate 77 /min 04/09/2025 Height 63 in in 04/09/2025 Weight 200 lbs 04/09/2025 BMI 35.42 kg/m2 04/09/2025 Encounters Encounter Location Date Provider Diagnosis Sanket Saleem III, MD [address] [place] [address] [place] [address] 04/09/2025 Sanket Saleem Pityriasis versicolo r B36.0 ; Hypertension I10 ; Obesity E66.9 ; Former smoker Z87.891 ; Migraine with aura G43.109 ; Poor glycemic control R73.09 ; 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 04/09/2025 Hypertension (ICD-10 - I10) His blood pressure has been elevated at home recently. In the office today was consistently 148/80. This was lying down. I have added atenolol 50 mg once a day to his regimen. 04/09/2025 Obesity (ICD-10 - E66.9) He has lost 6 pounds. . We have reviewed his weight loss plan. We discussed diet and nutrition. We made a plan to lose weight at a rate of one half of a pound per week. 04/09/2025 Former smoker (ICD-1 0 - Z87.891) He is highly motivated not to smoke. We discussed a plan to prevent relapse in times of stress or illness. 04/09/2025 Migraine with aura (ICD-10 - G43.109) No migraines have occurred since his last visit. No change in his regimen was made today. 04/09/2025 Poor glycemic contro l (ICD-10 - R73.09) The current glucose is only slightly elevated. His weight is up and we have discussed dietary control of hyperglycemia at length today. 04/09/2025 Intervertebral disc disorder of lumbar region with myelopathy (ICD-10 - M51.06) The patient is occasional and mild at this time. No change in his regimen as needed. 04/09/2025 Splenomegaly (ICD-10 - R16.1) I did not feel the tip of the spleen today on deep inspiration. No left upper quadrant abdominal pain has been present. He will be observed. 04/09/2025 Asthma (ICD-10 - J45.909) He has had no exacerbations of his asthma since his last visit. No change in his therapy was made. 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 He will no longer take the dexamethasone. The pain is improved and should continue to do so. He will be followed. Plan Of Treatment Medication Medication Name Sig Start Date Stop Date Notes amLODIPine Besylate 2.5 MG TAKE 1 TABLET BY MOUTH DAILY Oral Lisinopril 10 MG 1 tablet Orally Once a day 04/03/2024 Fluconazole 100 MG 1 tablet Orally weekly 06/05/2024 Ketoconazole 2 % 1 application Cut Out Marker ally Once a day for 28 days 04/09/2025 Breo Ellipta 200-25 MCG/ACT INHALE 1 PUF F BY MOUTH DAILY Inhalation Valsartan 320 MG TAKE 1 TABLET BY TO TH EVERY DAY Betamethasone Dipropionate A ug 0.05 % APPLY TOPICALLY TO THE AFFECTED AREA EVERY DAY Clobetasol Propionate 0.05 % APPLY TOPIC ALLY TO THE AFFECTED AREA TWICE DAILY Amitriptyline HCl 50 MG 1 tablet Orally Once a day Tylenol 325 MG 2 tablets as needed Orally every 6 hrs Atenolol 50 MG TAKE 1 TABLET BY MOUTH DAILY Next Appt Details Follow Up: 2 Weeks, Reason: OV Provider Name:Sanket Saleem , 06/23/2025 04:15:00 PM, [address] [facility] [place], [place], [address], Provider Name:Sanket Tirado Harper , 04/12/2026 04:00:00 PM, [address] [place] [address] [place] [address], [place], [address], Progress Notes * Vicente LINDSAYDOB:1970 (54 yo M)Acc No.[id number]:04/09/2025 Progress Notes Patient: Vicente FRANCIS Provider: Christopher Saleem MD :1970 A ge:54 Y S ex:Male Date:04/09/2025 Address:[address] [place] [id number] Subjective: * Chief Complaints: * A nnual Exam * HPI: D epression Screening: He returns to the office at the age of 54 for his annual physical examination. He is in the midst of a pulmonary evaluation for his complaints of dyspnea on exertion. He recently saw Dr. Nicole of the pulmonary service gave him Brio E Liptak inhaler and ordered several tests.? He had a colonoscopy February of 2024 which was normal. I recently began him on atenolol for his blood pressure. This combined with valsartan.He has lost 6 pounds. His blood pressure today was 140/82 which is a distinct improvement. He has been compliant with his medications. Patient report duration follow-up was arranged to check his blood pressure again and further titrate his medications. PHQ-9 L ittle interest or pleasure in doing things?Not at all F eeling down, depressed, or hopeless N ot at all T rouble falling or staying asleep, or sleeping too much N ot at all F eeling tired or having little energy S everal days P oor appetite or overeating S everal days F eeling bad about yourself or that you are a failure, or have let yourself or your family down N ot at all T rouble concentrating on things, such as reading the newspaper or watching television N ot at all M oving or speaking so slowly that other people could have noticed; or the opposite, being so fidgety or restless that you have been moving around a lot more than usual N ot at all T houghts that you would be better off or of hurting yourself in some way N ot at all T otal Score 2 I nterpretation M inimal Depression C OVID-19 Screening: Questions H ave you had any new onset fever, chills, cough, congestion, sore throat, shortness of breath, muscle aches? N o S STEVEN Questions: SDOH Questions I n the past year have you been worried about losing your housing? N o I n the past year have you or any family members you live with been unable to get any of the following when it was really needed? Check all that apply: N one * ROS: G eneral/Constitutional: pain O ccasional chronic right upper quadrant abdominal discomfort. C hills d enies. F atigue a dmits. F ever d enies. E NT: Decreased hearing d enies. R espiratory: Cough d enies. C ardiovascular: Chest pain with exertion d enies. D yspnea on exertion?with moderate activity. S hortness of breath w ith exertion. G astrointestinal: Constipation o ccasional. D ecreased [...] Medical History: * Surgical History: c holecystectomy [id number] 1998vasectomy 07/2018No history * Hospitalization/Major Diagno stic [...] Social History: T obacco Use: T obacco Control (Standard) T obacco use: F ormer smoker H ow long has it been since you last smoked??Greater than 10 years A dditional Findings: Tobacco non-user E x-cigarette smoker D rugs/Alcohol: D rugs H ave you used drugs other than those for medical reasons in the past 12 months? N o D rug/Alcohol: A ANISH-C (Standard) D id you have a drink containing alcohol in the past year? N o P oints 0 I nterpretation N egative H jude has been twice currently to [place] since 2011. His first 's name was Erika. He has a daughter Tierra from the first marriage and one child, Samuel, from the current one. 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 He works for [employer]. He exercises 5 times a week and has no restrictions on his diet. He no longer smokes. He has had no exposure to asbestos. He was born in [facility]. A great uncle had throat cancer [...] 100 MG Tablet 1 tablet Orally weekly Atenolol 50 MG Tablet TAKE 1 TABLET BY MOUTH DAILY Breo Ellipta 200-25 MCG/ACT Aerosol Powder Breath Activated INHALE 1 PUFF BY MOUTH DAILY Inhalation Medication List reviewed and reconciled with the [...] 1 TABLET BY MOUTH DAILY Oral Taking Lisinopril 10 MG Tablet 1 tablet Orally Once a day Taking Fluconazole 100 MG Tablet 1 tablet Orally weekly Taking Atenolol 50 MG Tablet TAKE 1 TABLET BY MOUTH DAILY Taking Breo Ellipta 200-25 MCG/ACT Aerosol Powder Breath Activated INHALE 1 PUFF BY MOUTH DAILY Inhalation Medication List reviewed and reconciled with the patient * Allergies: N eurontinKlonopinCymbaltaIndocinIbuprofenIndomethacinNaproxenShellfish-derived ProductsAmlodipineLactose Intoleranceno[Allergies Verified] Objective: * Vitals: H t: 63 in, Wt: 200, BMI:35.42, BP: 140/82, HR: 77, Temp: 98.4, Wt-k.72. * P ast Orders: L ab:Resp Allergy Profile Region I (Order Date - 03/31/2025) (Collection Date & Time - 03/31/2025 04:34 PM) Value Reference Range Immunoglobulin E 2 <CP=867 - kU/L N190-MnW Mouse Urine <0.10 - kU/L Class Mouse Urine Protein 0 - E526-ZuU Cockroach, Serbian <0.10 - kU/L Class Cockroach 0 - D002 - IgE D farinae <0.10 - kU/L Class Dermatophagoides farinae 0 - E001 - IgE Cat Dander <0.10 - kU/L Class Cat Dander 0 - E005 - IgE Dog Dander <0.10 - kU/L Class Dog Dander 0 - G006 - IgE Gildardo Grass <0.10 - kU/L Class Gildardo Grass 0 - M002 - IgE Cladosporium herbar <0.10 - kU/L Class Cladosporium herbarum 0 - M003 - IgE Aspergillus fumigat <0.10 - kU/L Class Aspergillus fumigatus 0 - M006 - IgE Alternaria alternat <0.10 - kU/L Class Alternaria alternata 0 - T006 - IgE [place], Mountain <0.10 - kU/L Class Mountain [place] 0 - T007 - IgE [place], White <0.10 - kU/L Class [place] 0 - T010 - IgE [place] <0.10 - kU/L Class [place] Tree 0 - T011 - IgE Maple Idamay [place] <0.10 - kU/L Class [place] 0 - T014 - IgE [place] <0.10 - kU/L Class [place] 0 - T015 - IgE Silvana, White <0.10 - kU/L Class White Silvana 0 - T070 - IgE [place] <0.10 - kU/L Class [place] 0 - W001 - IgE Ragweed, Short <0.10 - kU/L Class Common Ragweed 0 - W006 - IgE Mugwort <0.10 - kU/L Class Mugwort 0 - D001 IgE D pteronyssinus <0.10 - kU/L Class Derm. pterony 0 - G002 IgE [place] Grass <0.10 - kU/L Class [place] Grass 0 - M001 IgE Penicillium chrysogen <0.10 - kU/L Class Penicillium crysogenum 0 - T003 IgE Common Silver Birch <0.10 - kU/L Class Birch 0 - T008 IgE Elm, Ukrainian <0.10 - kU/L Class Elm 0 - T001 IgE Maple/Curry <0.10 - kU/L Class Maple Curry 0 - W014 IgE Pigweed, Common <0.10 - kU/L Class Rough Pigweed 0 - W018 IgE Sheep Regal <0.10 - kU/L Class Sheep Regal 0 - Allergen Comment See Below - Lab:Complete Blood Count Aut o Diff * Collection Date 03/31/2025 01/30/2025 04/04/2024 Collection Time 04:34 PM 07:21 AM 08:02 AM Order Date 03/31/2025 01/30/2025 04/04/2024 White Blood Count 7.5 (Ref Range: 4.8-10.8 X10*3/uL) 5.1 (Ref Range: 4.8-10.8 X10*3/uL) 4.9 (Ref Range: 4.8-10.8 X10*3/uL) Red Blood Count 4.85 (Ref Range: 4.60-5.80 X10*6/uL) 4.96 (Ref Range: 4.60-5.80 X10*6/uL) 4.88 (Ref Range: 4.60-5.80 X10*6/uL) Hemoglobin 15.6 (Ref Range: 14.0-18.0 g/dl) 15.9 (Ref Range: 14.0-18.0 g/dl) 15.8 (Ref Range: 14.0-18.0 g/dl) Hematocrit 42.6 (Ref Range: 42.0-52.0 %) 43.0 (Ref Range: 42.0-52.0 %) 43.0 (Ref Range: 42.0-52.0 %) Mean Corpuscular Volume 87.8 (Ref Range: 80.0-98.0 fL) 86.7 (Ref Range: 80.0-98.0 fL) 88.1 (Ref Range: 80.0-98.0 fL) Mean Corpuscular Hemoglobin 32.2 (Ref Range: 27.0-33.0 pg) 32.1 (Ref Range: 27.0-33.0 pg) 32.4 (Ref Range: 27.0-33.0 pg) Mean Corpuscular HGB Conc 36.6 H (Ref Range: 31.0-36.0 g/dl) 37.0 H (Ref Range: 31.0-36.0 g/dl) 36.7 H (Ref Range: 31.0-36.0 g/dl) Red Cell Distribution Width 12.0 (Ref Range: 11.0-16.0 %) 12.1 (Ref Range: 11.0-16.0 %) 11.8 (Ref Range: 11.0-16.0 %) Platelet Count 229 (Ref Range: 160-400 X10*3/uL) 248 (Ref Range: 160-400 X10*3/uL) 213 (Ref Range: 160-400 X10*3/uL) Mean Platelet Volume 10.9 (Ref Range: 9.4-12.4 fL) 10.3 (Ref Range: 9.4-12.4 fL) 10.7 (Ref Range: 9.4-12.4 fL) Neutrophils Percent Auto 63.1 (Ref Range: 45-73 %) 59.3 (Ref Range: 45-73 %) 57.5 (Ref Range: 45-73 %) Imm Gran Pct Auto 0.5 H (Ref Range: 0.0-0.4 %) 0.8 H (Ref Range: 0.0-0.4 %) 1.0 H (Ref Range: 0.0-0.4 %) Lymphocytes Percent Auto 23.9 (Ref Range: 20-40 %) 25.7 (Ref Range: 20-40 %) 28.3 (Ref Range: 20-40 %) Monocytes Percent Auto 10.3 (Ref Range: 2-11 %) 11.1 H (Ref Range: 2-11 %) 9.7 (Ref Range: 2-11 %) Eosinophils Percent Auto 1.1 (Ref Range: 0-4 %) 1.9 (Ref Range: 0-4 %) 2.5 (Ref Range: 0-4 %) Basophils Percent Auto 1.1 (Ref Range: 0-2 %) 1.2 (Ref Range: 0-2 %) 1.0 (Ref Range: 0-2 %) NRBC Pct Auto 0.3 H (Ref Range: 0.0-0.2 /100WBC) 0.0 (Ref Range: 0.0-0.2 /100WBC) 0.0 (Ref Range: 0.0-0.2 /100WBC) Neutrophils Absolute Auto 4.7 (Ref Range: 2.0-8.3 x10*3/uL) 3.0 (Ref Range: 2.0-8.3 x10*3/uL) 2.8 (Ref Range: 2.0-8.3 x10*3/uL) Imm Gran Abs Auto 0.04 H (Ref Range: 0.00-0.03 X10*3/uL) 0.04 H (Ref Range: 0.00-0.03 X10*3/uL) 0.05 H (Ref Range: 0.00-0.03 X10*3/uL) Lymphocytes Absolute Auto 1.8 (Ref Range: 1.2-4.9 X10*3/uL) 1.3 (Ref Range: 1.2-4.9 X10*3/uL) 1.4 (Ref Range: 1.2-4.9 X10*3/uL) Monocytes Absolute Auto 0.8 (Ref Range: 0.1-1.2 X10*3/uL) 0.6 (Ref Range: 0.1-1.2 X10*3/uL) 0.5 (Ref Range: 0.1-1.2 X10*3/uL) Eosinophils Absolute Auto 0.1 (Ref Range: 0.0-0.4 X10*3/uL) 0.1 (Ref Range: 0.0-0.4 X10*3/uL) 0.1 (Ref Range: 0.0-0.4 X10*3/uL) Basophils Absolute Auto 0.1 (Ref Range: 0.0-0.2 X10*3/uL) 0.1 (Ref Range: 0.0-0.2 X10*3/uL) 0.1 (Ref Range: 0.0-0.2 X10*3/uL) NRBC Abs Auto 0.020 H (Ref Range: 0.0-0.012 X10*3/uL) 0.000 (Ref Range: 0.0-0.012 X10*3/uL) 0.000 (Ref Range: 0.0-0.012 X10*3/uL) * Lab:Lipid Panel * Collection Date 01/30/2025 04/04/2024 04/19/2023 Collection Time 07:21 AM 08:02 AM 06:31 AM Order Date 01/29/2025 04/03/2024 04/19/2023 Triglycerides 160 H (Ref Range: <150 mg/dL) 136 (Ref Range: <150 mg/dL) 285 H (Ref Range: <150 mg/dL) Cholesterol 190 (Ref Range: <200 mg/dL) 183 (Ref Range: <200 mg/dL) 178 (Ref Range: <200 mg/dL) LDL Cholesterol Calculated 124 H (Ref Range: <100 mg/dL) 120 H (Ref Range: <100 mg/dL) 89 (Ref Range: <100 mg/dL) HDL Cholesterol 34 L (Ref Range: >40 mg/dL) 36 L (Ref Range: >40 mg/dL) 32 L (Ref Range: >40 mg/dL) Clinical Info: Please fast for 12-1 4 hours prior to having this labwork done. You may have black coffee or tea with no milk or sugar. May have water,Please have this testing 1 week prior to your next appointment,PLEASE FAX COMPLETED RESULTS TO [phone] * Lab:D Dimer High Sensitivity * Collection Date 01/30/2025 08/17/2021 Collection Time 07:21 AM 11:46 AM Order Date 01/30/2025 08/17/2021 D Dimer High Sensitivity < 150 (Ref Range: NG/ML) < 150 (Ref Range: NG/ML) * Lab:Prostate Specific Antige n * Collection Date 01/30/2025 04/19/2023 Collection Time 07:21 AM 06:31 AM Order Date 01/30/2025 04/19/2023 Prostate Specific Antigen 0.79 (Ref Range: <0.05-4.0 ng/mL) 0.80 (Ref Range: <0.05-4.0 ng/mL) * Lab:Comprehensive [place]. Pane l Fast * Collection Date 01/30/2025 04/19/2023 Collection Time 07:21 AM 06:31 AM Order Date 01/30/2025 04/19/2023 Sodium 140 (Ref Range: 135-145 mmol/L) 141 (Ref Range: 135-145 mmol/L) Bilirubin Total 0.4 (Ref Range: 0.0-1.0 mg/dL) 0.3 (Ref Range: 0.0-1.0 mg/dL) Aspartate Amino Transferase 28 (Ref Range: 5-37 U/L) 26 (Ref Range: 5-37 U/L) Alanine Aminotransferase 52 H (Ref Range: 0-40 U/L) 29 (Ref Range: 0-40 U/L) Total Protein 7.3 (Ref Range: 6.5-8.0 g/dL) 6.8 (Ref Range: 6.5-8.0 g/dL) Albumin Level 4.7 (Ref Range: 3.5-5.0 g/dL) 4.2 (Ref Range: 3.5-5.0 g/dL) Alkaline Phosphatase 88 (Ref Range: 39-117 U/L) 100 (Ref Range: 39-117 U/L) Potassium 4.4 (Ref Range: 3.3-5.1 mmol/L) 4.1 (Ref Range: 3.3-5.1 mmol/L) Chloride 109 H (Ref Range: 96-108 mmol/L) 105 (Ref Range: 96-108 mmol/L) Carbon Dioxide 22 (Ref Range: 22-29 mmol/L) 26 (Ref Range: 22-29 mmol/L) Anion Gap 13 (Ref Range: 12-20) 14 (Ref Range: 12-20) Blood Urea Nitrogen 19 H (Ref Range: 9-16 mg/dL) 13 (Ref Range: 9-16 mg/dL) Creatinine 0.86 (Ref Range: 0.5-1.4 mg/dL) 1.01 (Ref Range: 0.5-1.4 mg/dL) Estimated Glomerular Filt Rate > 60 > 60 Glucose Fasting 118 H (Ref Range: 60-99 mg/dL) 123 H (Ref Range: 60-99 mg/dL) Calcium 9.2 (Ref Range: 8.4-10.2 mg/dL) 9.3 (Ref Range: 8.4-10.2 mg/dL) * Imaging:XR chest 2V * Performed Date 01/15/2025 08/15/2021 06:47 AM 10:08 AM Order Date 01/15/2025 08/15/2021 * Examination: G eneral Examination: GENERAL APPEARANCE: [...] ascites, no organomegaly, no mass: centripital obesity, Unremarkable right upper quadrant. RECTAL EXAM: n ot examined. MUSCULOSKELETAL: e [...] recently. In the office today was consistently 148/80. This was lying down. I have added atenolol 50 mg once a day to his regimen. 2 . P ityriasis versicolor - B36.0 N otes :Her rash was minimal today and will be observed. 3 . O besity - E66.9 N otes :He has lost 6 pounds. . We have reviewed his weight loss plan. We discussed diet and nutrition. We made a plan to lose weight at a rate of one half of a pound per week. 4 . F ormer smoker - Z87.891 N otes :He is highly motivated not to smoke. We discussed a plan to prevent relapse in times of stress or illness. 5 . M igraine with aura - G43.109 N otes :No migraines have occurred since his last visit. No change in his regimen was made today. 6 . P oor glycemic control - R73.09 N otes :The current glucose is only slightly elevated. His weight is up and we have discussed dietary control of hyperglycemia at length today. 7 . I ntervertebral disc disorder of lumbar region with myelopathy - M51.06? Notes :The patient is occasional and mild at this time. No change in his regimen as needed. 8 . S plenomegaly - R16.1 N otes :I did not feel the tip of the spleen today on deep inspiration. No left upper quadrant abdominal pain has been present. He will be observed. 9 . A sthma - J45.909 N otes :He has had no exacerbations of his asthma since his last visit. No change in his therapy was made. 1 0. C ervical radiculopathy - M54.12 [...] tobacco use and urged to quit. 0 04/09/2025 * Follow Up: 2 Weeks (Reason: OV) * Images: * Sign off status: Completed true * Provider: Christopher Saleem MD Date: 0 04/09/2025 Generated for Chema singh/Anaid/Terra on: 09:26 AM EDT History and Physical Notes * HPI (History of Present Illness) Category Sub-Category Detail Notes Depression Screening PHQ-9 Little inte rest or pleasure in doing things: Not at all Feeling down, depressed, or hopeless: No t at all Trouble falling or staying asleep, or sl eeping too much: Not at all Feeling tired or having little energy: S everal days Poor appetite or overeating: Several day s Feeling bad about yourself o r that you are a failure, or have let yourself or your family down: Not at all Trouble concentrating on thi ngs, such as reading the newspaper or watching television: Not at all Moving or speaking so slowly that other people could have noticed; or the opposite, being so fidgety or restless that you have been moving around a lot more than usual: Not at all Thoughts that you would be b susan off or of hurting yourself in some way: Not at all Total Score: 2 Interpretation: Minimal Depression COVID-19 Screening Questions Have you had any new onset fever, chills, cough, congestion, sore throat, shortness of breath, muscle aches?: No SDOH Questions SDOH Questions In the past year have you been worried about losing your housing?: No In the past year have you or any family members you live with been unable to get any of the following when it was really needed? Check all that apply:: None Examination Category Sub-Category Detail Notes General Examination [...] ascites, no organomegaly, no mass: centripital obesity, Unremarkable right upper quadrant NEUROLOGIC: alert and oriented, cranial nerves 2-12 [...]
--- OUTSIDE RECORDS SUMMARY | 2025-04-23 13:00 | XMS_ITS ---
Author Organization Sanket Saleem III, MD Address [address] [place] [address] [place] [address] Care Team Providers Care Corporate Development Associate Name Role Phone Dr. Sanket Saleem III Primary Care Provider REASON FOR VISIT Follow up Social History Sex Assigned At : Social History Observation Description Sex Assigned At Male Encounters Encounter Location Date Provider Diagnosis Sanket Saleem III, MD [address] [place] [address] [place] [address] 04/23/2025 Sanket Saleem Plan Of Treatment Next Appt Details Provider Name:Sanket Saleem , 06/23/2025 04:15:00 PM, [address] [place] [address] [place], [address], Provider Name:Sanket Saleem , 04/12/2026 04:00:00 PM, [address] [place] [address] [place], [address], Progress Notes * Vicente LINDSAYDOB:1970 (54 yo M)Acc No.[id number]:04/23/2025 Progress Notes Patient: Vicente FRANCIS Provider: Christopher Saleem MD :1970 A ge:54 Y S ex:Male Date:04/23/2025 Address:[address] [place] [address] [id number] Subjective: * Chief Complaints: * 1 . Follow up. * Medical History: Objective: * Vitals: Assessment: Plan: * Treatment: * Images: * The named appointment provid er may or may not be the originator of this progress note, and it is not deemed complete until electronically signed by the appointment provider. Sign off status: Pending * Provider: Christopher Saleem MD Date: 0 04/23/2025 Generated for Chema signh/Anaid/Rosaleesmitting on: 09:25 AM EDT
--- OUTSIDE RECORDS SUMMARY | 2025-04-26 12:00 | XMS_ITS ---
Author Organization Sanket Saleem III, MD Address [address] [place] [address] [place] [address] Care Team Providers Care Director Of Undergraduate Admissions Name Role Phone Dr. Sanket Saleem III [...] Unknown Drug Allergy Active REASON FOR VISIT Dyspnea on exertion, Splenomegaly, Right upper quadrant abdominal pain, Low back pain, Obesity Medications Medication SIG (Take, Route, Frequency, Duration) Notes Start Date End Date Status Amitriptyline HCl 50 MG 1 tablet Orally Once a day Active Clobetasol Propionate 0.05 % APPLY TOPICALLY TO THE AFFECTED AREA TWICE DAILY Active Lisinopril 10 MG 1 tablet Orally Once a day 04/03/2024 Active amLODIPine Besylate 2.5 MG TAKE 1 TABLET BY MOUTH DAILY Oral Active Tylenol 325 MG 2 tablets as needed Orally every 6 hrs Active Betamethasone Dipropionate Aug 0.05 % APPLY TOPICALLY TO THE AFFECTED AREA EVERY DAY Active Valsartan 320 MG TAKE 1 TABLET BY TO TH EVERY DAY Active Ketoconazole 2 % 1 application Neonatal Pediatric Nurse ally Once a day 04/09/2025 Active Breo Ellipta 200-25 MCG/ACT INHALE 1 PUF F BY MOUTH DAILY Inhalation Active Atenolol 50 MG TAKE 1 TABLET BY TO TH DAILY Active Fluconazole 100 MG 1 tablet Orally weekly 06/05/20 24 Active Social History Tobacco Use: Social History Observation Description Date Details (start date - stop date) Former Smoker NA - NA Sex Assigned At : Social History Observation Description Sex Assigned At Male Tobacco Control (Standard) Question Answer Notes Tobacco use: Former smoker How long has it been since you last smoked? Pippaa ter than 10 years Additional Findings: Tobacco non-user Ex-cigaret te smoker Vital Signs Temperature 98.4 degrees Fahrenheit 04/26/20 25 Blood pressure systolic 138 mm Hg 04/26/20 25 Blood pressure diastolic 78 mm Hg 025 Heart Rate 74 /min 04/26/2025 Respiratory Rate 15 /min 04/26/2025 Height 63 in in 04/26/2025 Weight 204 lbs 04/26/2025 BMI 36.13 kg/m2 04/26/2025 Oximetry 96 % 04/26/2025 Encounters Encounter Location Date Provider Diagnosis Sanket Saleem III, MD [address] [place] [address] DR [place], [place] [address] 04/26/2025 Sanket Saleem Pityriasis versicolo r B36.0 ; Dyspnea on exertion R06.09 ; Former smoker Z87.891 ; Obesity E66.9 and LAUREEN (obstructive sleep apnea) G47.33 Assessments Encounter Date Diagnosis (ICD Code) Assessment Notes Treatment Notes Treatment Clinical Notes 04/26/2025 Pityriasis versicolor (ICD-10 - B36.0) Her rash was minimal today and will be observed. 04/26/2025 Dyspnea on exertion (ICD-10 - R06.09) The pulmonary function tests are normal. Comprehensive blood work was ordered and will be reviewed. 04/26/2025 Former smoker (ICD-10 - Z87.891) He is highly motivated not to smoke. We discussed a plan to prevent relapse in times of stress or illness. 04/26/2025 Obesity (ICD-10 - E66.9) He has lost 6 pounds. . We have reviewed his weight loss plan. We discussed diet and nutrition. We made a plan to lose weight at a rate of one half of a pound per week. 04/26/2025 LAUREEN (obstructive sleep apnea) (ICD-10 - G47.33) This is going to be reevaluated. Plan Of Treatment Medication Medication Name Sig Start Date Stop Date Notes Amitriptyline HCl 50 MG 1 tablet Orally Once a day Clobetasol Propionate 0.05 % APPLY TOPIC ALLY TO THE AFFECTED AREA TWICE DAILY Lisinopril 10 MG 1 tablet Orally Once a day 04/03/2024 amLODIPine Besylate 2.5 MG TAKE 1 TABLET BY MOUTH DAILY Oral Tylenol 325 MG 2 tablets as needed Orally every 6 hrs Betamethasone Dipropionate A ug 0.05 % APPLY TOPICALLY TO THE AFFECTED AREA EVERY DAY Valsartan 320 MG TAKE 1 TABLET BY TO TH EVERY DAY Ketoconazole 2 % 1 application Neonatal Pediatric Nurse ally Once a day 04/09/2025 Breo Ellipta 200-25 MCG/ACT INHALE 1 PUF F BY MOUTH DAILY Inhalation Atenolol 50 MG TAKE 1 TABLET BY MOUTH DAILY Fluconazole 100 MG 1 tablet Orally weekly 06/05/2024 Next Appt Details Follow Up: 2 Months, Reason: ov Provider Name:Sanket Saleem , 06/23/2025 04:15:00 PM, [address] [place] [address] [address], [place], [address], Provider Name:Sanket Saleem , 04/12/2026 04:00:00 PM, [address] [place] [address] [address] [place], [place], [address], Progress Notes * Vicente LINDSAYDOB:1970 (54 yo M)Acc No.[id number]:04/26/2025 Progress Notes Patient: Vicente FRANCIS Provider: Christopher Saleem MD :1970 A ge:54 Y S ex:Male Date:04/26/2025 Address:[address] [place], [place] [phone] Subjective: * Chief Complaints: * D yspnea on exertionSplenomegalyRight upper quadrant abdominal painLow back painObesity * HPI: C OVID-19 Screening: He has been to the pulmonary physician and was given an inhaler..Pulmonary function tests were ordered. Allergy is suspected. He evaluation is in progress. 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 He has medication for this. His dysphagia has resolved. His left shoulder hurts but he says the orthopedist told him he could not be repaired.He is stable at the moment and will be seen back in followup after the pulmonary evvaluation has been completed and treatment instituted. Questions H ave you had any new onset fever, chills, cough, congestion, sore throat, shortness of breath, muscle aches? N o * ROS: G eneral/Constitutional: pain C hronic right upper quadrant abdominal discomfort.?Chills d enies. F atigue a dmits. F [...] Medical History: * Surgical History: c holecystectomy [id number] 1998vasectomy 07/2018No history * Hospitalization/Major Diagno stic [...] dditional Findings: Tobacco non-user E x-cigarette smoker Charli roque has been twice currently to [place] since 2011. His first 's name was Erika. He has a daughter Tierra from the first marriage and one child, Samuel, from the current one. 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 He exercises 5 times a week and has no restrictions on his diet. He no longer smokes. He has had no exposure to asbestos. He was born in [facility]. A great uncle had throat cancer and one aunt had brain cancer. * Medications: T akingAtenolol 50 MG Tablet TAKE 1 TABLET BY MOUTH DAILY Valsartan 320 MG Tablet TAKE 1 TABLET [...] 100 MG Tablet 1 tablet Orally weekly Breo Ellipta 200-25 MCG/ACT Aerosol Powder Breath Activated INHALE 1 PUFF BY MOUTH DAILY Inhalation Ketoconazole 2 % Cream 1 application Externally Once a day Medication List reviewed and reconciled with the patientTaking Atenolol 50 MG Tablet TAKE 1 TABLET BY MOUTH DAILY Taking Valsartan 320 MG Tablet TAKE 1 [...] MG Tablet 1 tablet Orally weekly Taking Breo Ellipta 200-25 MCG/ACT Aerosol Powder Breath Activated INHALE 1 PUFF BY MOUTH DAILY Inhalation Taking Ketoconazole 2 % Cream 1 application Externally Once a day Medication List reviewed and reconciled with the patient * Allergies: N eurontinKlonopinCymbaltaIndocinIbuprofenIndomethacinNaproxenShellfish-derived ProductsAmlodipineLactose Intoleranceno[Allergies Verified] Objective: * Vitals: H t: 63 in, Wt: 204, BMI:36.13, BP: 138/78, HR: 74, RR: 15, Temp: 98.4, Oxygen sat %: 96, Wt-k.53. * Examination: G eneral Examination: GENERAL APPEARANCE: [...] today and will be observed. 3 . F ormer smoker - Z87.891 [...] of a pound per week. 5 . O SA (obstructive sleep apnea) - G47.33 N otes :This is going to be reevaluated. Plan: * Treatment: 2. O thers Continue Valsartan Tablet, 320 MG, TAKE 1 TABLET BY MOUTH EVERY DAY; C ontinue Betamethasone Dipropionate Aug Lotion, 0.05 %, APPLY TOPICALLY TO THE AFFECTED AREA EVERY DAY; C ontinue Clobetasol Propionate Ointment, 0.05 %, APPLY TOPICALLY TO THE AFFECTED AREA TWICE DAILY. * Procedure Codes: 9 4760 MEASURE BLOOD [...] Other reason not done * Follow Up: 2 Months (Reason: ov) * Images: * Sign off status: Completed true * Provider: Christopher Saleem MD Date: 0 04/26/2025 Generated for Chema singh/Anaid/eTransmitting on: 1 09:25 AM EDT History and Physical Notes [...]
--- OUTSIDE RECORDS SUMMARY | 2025-05-07 09:50 | XMS_ITS ---
Author Organization Sanket Saleem III, MD Address [address] [place] [address] [place] [address] Care Team Providers Care Car Body Inspector Name Role Phone Dr. Sanket Saleem III Primary Care Provider [phone] REASON FOR VISIT Rx Request Medications Medication SIG (Take, Route, Fr equency, Duration) Notes Start Date End Date Status Atenolol 50 MG 1 tablet Orally twic e a day for 90 days Active Social History Sex Assigned At : Social History Observation Description Sex Assigned At Male Encounters Encounter Location Date Provider Diagnosis Sanket Saleem III, MD [address] [place] [address] [place] [address] 05/07/2025 Sanket Saleem Pityriasis versicolo r B36.0 Assessments Encounter Date Diagnosis (ICD Code) Assessment Notes Treatment Notes Treatment Clinical Notes 05/07/2025 Pityriasis versicolor (ICD-10 - B36.0) Her rash was minimal today and will be observed. Plan Of Treatment Medication Medication Name Sig Start Date Stop Date Notes Atenolol 50 MG 1 tablet Orally twice a day for 90 days Next Appt Details Provider Name:Sanket Saleem , 06/23/2025 04:15:00 PM, [address] [place] [address] [place], [address], Provider Name:Sanket Saleem , 04/12/2026 04:00:00 PM, [address] [place] [address] [place], [address], Progress Notes * Neftali LINDSAYjosefaDOB:1970 (54 yo M)Acc No.[id number]:05/07/2025 Patient: Vicente FRANCIS :1970 A ge:54 Y S ex:Male Address:[address] [place] [address], [address] * Refills Refill Atenolol Tablet, 50 MG, Orally, 180 Tablet, 1 tablet, twice a day, 90 days, Refills=3 * true * Date: Generated for Chema singh/Anaid/Madelineitting on: 1 09:26 AM EDT
--- OUTSIDE RECORDS SUMMARY | 2025-06-04 09:25 | XMS_ITS | Patient Health Record ---
Author Organization [facility] Address [address] [place] [address] Care Team Providers Care Billing And Insurance Coordinator Name Role Phone Sanket Saleem MD Primary Care Provider Sanket Orona Unavailable [phone] Allergies Allergen (clinical drug ingredient) Drug/Non Drug Allergy documented on EMR Reaction Allergy Type Onset Date Status gabapentin Neurontin Unknown Drug Allergy Active clonazepam Klonopin Unknown [...] amlodipine amLODIPine Unknown Drug Allergy Activ e Results Component Value Reference Range Notes Pathology Reviewed date:05/11/2025 01:13:46 PM Interpretation: Performing Lab:[facility], [address] [place] [phone] Notes/Report: Reason For Referral No Information Medications Medication SIG (Take, Route, Frequency, Duration) Notes Start Date End Date Status Atenolol 50 MG 1 tablet Orally Once a day Active PriLOSEC OTC 20 MG 1 tablet 1/2 to 1 hour before morning meal Orally Once a day Active Aleve 220 MG 1 tablet with food o r milk as needed Orally every 12 hrs Active tylenol Active Amitriptyline HCl 25 MG 1 tablet at bedt pilar Orally Once a day For insomnia Active Valsartan 320 MG TAKE 1 TABLET BY MOUTH EVERY DAY Oral; Duration: 90 Active Immunizations Vaccine Route Administration Date Status Comme nts Influenza Unknown 05/11/2025 Refused Social History Alcohol Screen Question Answer Notes Did you have a drink containing alcohol in the p ast year? No Points 0 Interpretation Negative AUDIT-C (Standard) Question Answer Notes Did you [...] Problem Screening for malignant neoplasm of colon (115608034) Encounter for screening for malignant neoplasm of colon (Z12.11) Active confirmed Problem Pre-procedure evaluation check (904739468) Encounter for other preprocedural examination (Z01.818) Active confirmed Problem Diverticular disease of colon (286096497) Diverticulosis of large intestine without perforation or abscess without bleeding (K57.30) Active confirmed Problem Irritable bowel syndrome with diarrhea (218972571) Irritable bowel syndrome with diarrhea (K58.0) Active confirmed Problem Right upper quadrant pain (611570189) Right upper quadrant pain (R10.11) Active confirmed Problem Dysphagia (97165396) Dysphagia (R13.10) Active confirmed Problem Gastroesophageal reflux disease (674513835) GERD (gastroesophageal reflux disease) (K21.9) Active confirmed Vital Signs Temperature 97.8 degrees Fahrenheit 05/11/2025 Blood pressure diastolic 01 mm Hg 05/11/2025 Height 64 in 05/11/2025 Blood pressure systolic 001 mm Hg 05/11/2025 Weight 205.4 lbs 05/11/2025 BMI 35.25 kg/m2 05/11/2025 Procedures Procedure Date Ordered Date Performed Result Body Sit e UPPER GI ENDOSCOPY BALLOOON DILATION OF ESOPH 11/19/2024 N/A Encounters Encounter Location Date Provider Diagnosis [facility] [address], [place] [phone] 12/03/2024 Sanket Hankins Gastro-esophageal reflux disease without esophagitis K21.9 ; Gastric polyps K31.7 and Hiatal hernia K44.9 [facility] [address] [place] [phone] 11/19/2024 Sanket Hankins Dysphagia R13.10 and GERD (gastroesophageal reflux disease) K21.9 [facility] [address] [place] [address] 05/11/2025 Sanket Hankins Encounter for screening for malignant neoplasm of colon Z12.11 ; Dysphagia R13.10 and GERD (gastroesophageal reflux disease) K21.9 [facility] [address] [place] [address] 07/13/2024 Sanket Hankins [facility] [address] [place] [address] 12/07/2024 Sanket Hankins Assessments Encounter Date Diagnosis [...] to keep you advised of his progress. 05/11/2025 Encounter for screening for malignant neoplasm of colon (ICD-10 - Z12.11) Repeat colonoscopy in 2033 Overall, Neftali appears to be doing quite well. We did review the findings on the upper endoscopy. I advised him that I do suspect his acid reflux was contributing to his swallowing in relation to some esophageal dysmotility and/or esophageal spasm. I did advise him to continue the omeprazole daily both for symptomatic relief of acid reflux as well as to hopefully keep his swallowing stable. I do not think will need any further upper endoscopies at this time unless his symptoms dictate otherwise. We did review that he will be due for a follow-up colonoscopy in 2033 given the negative exam in 2023 and no family history of colon cancer. If things are otherwise well he will see me in the interim on an as-needed basis. I did advise him to certainly call me if he has any problems or questions I can be of assistance with. Neftali was comfortable with this plan. Thank you again for allowing me to participate in Neftali's care. I shall continue to keep you advised of his progress. 05/11/2025 Dysphagia (ICD-10 - R13.10) Overall, Neftali appears to be doing quite well. We did review the findings on the upper endoscopy. I advised him that I do suspect his acid reflux was contributing to his swallowing in relation to some esophageal dysmotility and/or esophageal spasm. I did advise him to continue the omeprazole daily both for symptomatic relief of acid reflux as well as to hopefully keep his swallowing stable. I do not think will need any further upper endoscopies at this time unless his symptoms dictate otherwise. We did review that he will be due for a follow-up colonoscopy in 2033 given the negative exam in 2023 and no family history of colon cancer. If things are otherwise well he will see me in the interim on an as-needed basis. I did advise him to certainly call me if he has any problems or questions I can be of assistance with. Neftali was comfortable with this plan. Thank you again for allowing me to participate in Neftali's care. I shall continue to keep you advised of his progress. 12/03/2024 Hiatal hernia (ICD-10 - K44.9) 05/11/2025 GERD (gastroesophage al reflux disease) (ICD-10 - K21.9) Continue daily Prilosec Overall, Neftali appears to be doing quite well. We did review the findings on the upper endoscopy. I advised him that I do suspect his acid reflux was contributing to his swallowing in relation to some esophageal dysmotility and/or esophageal spasm. I did advise him to continue the omeprazole daily both for symptomatic relief of acid reflux as well as to hopefully keep his swallowing stable. I do not think will need any further upper endoscopies at this time unless his symptoms dictate otherwise. We did review that he will be due for a follow-up colonoscopy in 2033 given the negative exam in 2023 and no family history of colon cancer. If things are otherwise well he will see me in the interim on an as-needed basis. I did advise him to certainly call me if he has any problems or questions I can be of assistance with. Neftali was comfortable with this plan. Thank you again for allowing me to participate in Neftali's care. I shall continue to keep you advised of his progress. Plan Of Treatment Pending Test Test Name Order Date UPPER GI ENDOSCOPY BALLOOON DILATION OF ESOPH 11/19/2024 CELIAC PANEL #10 08/02/2015 NUC HIDA SCAN 05/05/2015 Future Test Test Name Order Date COLONOSCOPY 10/24/2023 Insurance Providers Payer Name Payer Address Payer Phone Subscriber Number Group Number Insured Name Patient Relationship to Insured Coverage Start Date Coverage End Date [facility] [address] [place] [phone] [id number] DONELL LÓPEZ Self - patient is the insured Medical (General) History Medical History History ICD Code Denies LA,DM,CVA,Lung disease,renal dise ase Hypertension Torn rotator cuff on the left Negative screening colonoscopy in 02/2024 GERD- -Upper endoscopy in [place] 2024 revealed a small hiatal hernia, but no evidence of any esophageal stricture, esophageal ring, Jacob's esophagus, eosinophilic esophagitis, nor significant reflux esophagitis. I did use a dilating balloon up to 20 mm to dilate the gastroesophageal junction although again there was no particular narrowing noted. There was some gastritis but biopsies were negative for H. pylori as well. Surgical History Surgery Date(Month/Year) [facility]Y - for presumed acalculous cholecysti tis with Dr. Reanna Ron 06/2015 Appendectomy 1998
--- OUTSIDE RECORDS SUMMARY | 2025-06-04 09:25 | XMS_ITS | Clinical Summary ---
Author Organization [facility] [place] [address] Phone Care Team Providers Care Fast Food Cashier Name Role Phone Physician, No Pcp Primary [...] Health Maintenance Due Date Last Done Comments Colorectal Cancer Screening: Colonoscopy 1970 Hepatitis B Vaccines (1 of 3 - 19+ 3-dose series) 1991 Pneumococcal Vaccine: 50+ Ye ars (1 of 1 - PCV) 2022 Zoster Vaccines (1 of 2) 2022 DTaP,Tdap,and Td Vaccines (2 - Td or Tdap) 01/19/2023 01/19/2013 Depression Screening 08/05/2024 Cholesterol Screening (Lipid Panel) 09/21/2024 HIV Screening 09/21/2024 Hepatitis C Screening 09/21/2024 Social Influencers of Health Screening 09/21/2024 COVID-19 Vaccine (1 - 2023-2 5 season) 2025 Influenza Vaccine (#1) 2025 RSV Immunization Adult Patie nts (1 - 1-dose 75+ series) 2047 HIB Vaccines Aged Out No longer eligi [...] complete this topic Insurance GENERIC Care Teams Fast Food Cashier Relationship Specialty Start Date End Date Physician, No Pcp PCP - General 09/21/24
--- OUTSIDE RECORDS SUMMARY | 2025-06-04 09:27 | XMS_ITS | Patient Health Record ---
Author Organization Sanket Saleem III, MD Address [address] [place] [address] [place] [address] Care Team Providers Care Bell Spinner Sousaphones Name Role Phone Dr. Sanket Saleem III [...] Panel Reviewed date:04/06/2025 04:48:22 AM Interpretation: Performing Lab:[facility], [address] [place] [phone] Notes/Report: Triglycerides 160 <150 mg/dL Desirable Triglyceride: [...] low results in patients with liver disease. Pathology Reviewed date:04/06/2025 04:48:22 AM Interpretation: Performing Lab:[facility], [address] [place] [phone] Notes/Report: ---- Name: Vicente Lindsay Age/Sex: 54/M : 1970 Unit#: [id number] Attend Dr: Sanket Hankins MD Re12/03/24 Status : [facility] Location: [facility] Disch: ---- SPEC : [id number] RECD : 12/03/24661 STATUS: HONG REJerilyn NUM: [id number] RONNIE: 12/03/24-[address] [facility] [address]: Sanket Hankins MD ENTERED: 12/03/24-14 22 SP TYPE: Surgical OTHR DR: Sanket Saleem [...] Vicente Lindsay Age/Sex: 54/M : 1970 Unit#: [id number] Attend Dr: Sanket Hankins MD Re12/03/24 Status : [facility] Location: [facility] Disch: ---- SPEC : [id number] RECD : 12/03/24 STATUS: HONG DÍAZ NUM: [id number] RONNIE: 12/03/24-[address] [facility] [address]: Sanket Hankins MD ENTERED: 12/03/24- 22 SP TYPE: Surgical OTHR DR: Sanket Saleem [...] and C Copies To: Sanket Saleem MD [address] [place] [address], [address] [place] [address] Sanket Hankins MD [facility] [address] [place] [address] [address] [place] [id number] ---- Signed (signature on file) Robbie Roldan MD 12/07/24 1215 ---- END OF REPORT XR chest 2V Reviewed date:04/06/2025 04:48:22 AM Interpretation: Performing Lab: Notes/Report: [address] [address] XRay Report Signed Patient: Vicente Lindsay MR#: [id number] 4 : 1970 Acct:[id number] Age/Sex: 54 / M ADM Date: 01/15/25 Loc: [facility] Attending Dr: Sanket Saleem MD Ordering Physician: Sanket Saleem MD Date of Service: 01/15/25 Procedure(s): XR chest 2V Accession Number(s): [id number] cc: Sanket Saleem MD CLINICAL HISTORY: SHORTNESS [...] in OV> 01/15/2548 DD/ 6 TD/TT: 01/15/25646 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: [address] [address] XRay Report Signed Patient: Willian Lindsay MR#: [id number] 4 : 1970 Acct:[id number] Age/Sex: 54 / M ADM Date: 01/15/25 Loc: [facility] Attending Dr: Sanket Saleem MD Ordering Physician: Sanket Saleem MD Date of Service: 01/15/25 Procedure(s): XR radha st 2V Accession Number(s): [id number] cc: Sanket Saleem MD CLINICAL HISTORY: SHORTNESS [...] in OV> 01/15/2548 DD/ 6 TD/TT: 01/15/25646 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: Complete Blood Count Auto Di ff Reviewed date:04/06/2025 04:48:22 AM Interpretation: Performing Lab:[facility], [address] [place] [phone] Notes/Report: White Blood Count 5.1 4.8-10.8 X10*3/uL [...] NRBC Abs Auto 0.000 0.0-0.012 X10*3/uL Comprehensive [place]. Panel Fa Reviewed date:04/06/2025 04:48:22 AM Interpretation: Performing Lab:[address] [phone] Notes/Report: Sodium 140 135-145 mmol/L Potassium 4.4 [...] Phosphatase 88 39-117 U/L Prostate Specific Antigen Reviewed date:04/06/2025 04:48:22 AM Interpretation: Performing Lab:[facility], [address] [place] [phone] Notes/Report: Prostate Specific Antigen 0.79 <0.05-4.0 ng/mL PSA methodology: Damon Alinity i Chemiluminescent Microparticle Immunoassay (CMIA) D Dimer High Sensitivity Reviewed date:04/06/2025 04:48:22 AM Interpretation: Performing Lab:[facility], [address] [place] [phone] Notes/Report: D Dimer High Sensitivity < 150 D-DIMER HS REFERENCE RANGE Note: Our assay reports D-Dimer Units (D-DU). The cut-off value for venous thromboembolic (VTE) disease is 230 ng/mL. This value has a very high negative predictive value when the patient has a low to moderate clinical probability of VTE. The upper limit of normal is 243 ng/mL. Complete Blood Count Auto Di ff Reviewed date:04/06/2025 04:48:22 AM Interpretation: Performing Lab:[facility], [address] [place] [phone] Notes/Report: White Blood Count 7.5 4.8-10.8 X10*3/uL Red Blood Count 4.85 4.60-5.80 X10*6/uL Hemoglobin 15.6 14.0-18.0 g/dl Hematocrit 42.6 42.0-52.0 % Mean Corpuscular Volume 87.8 80.0-98.0 fL Mean Corpuscular Hemoglobin 32.2 27.0-33.0 pg Mean Corpuscular HGB Conc 36.6 31.0-36.0 g/dl Red Cell Distribution Width 12.0 11.0-16.0 % Platelet Count 229 160-400 X10*3/uL Mean Platelet Volume 10.9 9.4-12.4 fL Neutrophils Percent Auto 63.1 45-73 % Imm Gran Pct Auto 0.5 0.0-0.4 % Lymphocytes Percent Auto 23.9 20-40 % Monocytes Percent Auto 10.3 2-11 % Eosinophils Percent Auto 1.1 0-4 % Basophils Percent Auto 1.1 0-2 % NRBC Pct Auto 0.3 0.0-0.2 /100WBC Neutrophils Absolute Auto 4.7 2.0-8.3 x10*3/uL Imm Gran Abs Auto 0.04 0.00-0.03 X10*3/uL Lymphocytes Absolute Auto 1.8 1.2-4.9 X10*3/uL Monocytes Absolute Auto 0.8 0.1-1.2 X10*3/uL Eosinophils Absolute Auto 0.1 0.0-0.4 X10*3/uL Basophils Absolute Auto 0.1 0.0-0.2 X10*3/uL NRBC Abs Auto 0.020 0.0-0.012 X10*3/uL Resp Allergy Profile Region I Reviewed date:04/06/2025 04:48:22 AM Interpretation: Performing Lab:[facility], [address] [place] [phone] Notes/Report: Immunoglobulin E 2 <KE=268 kU/L [id number] Mouse Urine <0.10 Class Mouse Urine Protein 0 H526-EsO Cockroach, Mozambican <0.10 Class Cockroach 0 D002 - IgE D farinae <0.10 Class Dermatophagoides farinae 0 E001 - IgE Cat Dander <0.10 Class Cat Dander 0 THIS TEST WAS PERFORMED AT: [facility] [address] [place] [phone] DEREK JOYCE MD E005 - IgE Dog Dander <0.10 Class Dog Dander 0 THIS TEST WAS PERFORMED AT: [facility] [address] [place] [phone] DEREK JOYCE MD G006 - IgE Gildardo Grass <0.10 Class Gildardo Grass 0 M002 - IgE Cladosporium herbar <0.10 Class Cladosporium herbarum 0 M003 - IgE Aspergillus fumigat <0.10 Class Aspergillus fumigatus 0 M006 - IgE Alternaria alternat <0.10 Class Alternaria alternata 0 THIS TEST WAS PERFORMED AT: [facility] [address] [place] [phone] DEREK JOYCE MD T006 - IgE Posey, Mountain <0.10 Class Mountain Posey 0 T007 - IgE [place], White <0.10 Class [place] 0 T010 - IgE [place] <0.10 Class [place] Tree 0 T011 - IgE Maple Frederic Livingston <0.10 Class Living[place] 0 T014 - IgE [place] <0.10 Class Verona 0 T015 - IgE Les, White <0.10 Class White Les 0 T070 - IgE White [place] <0.10 Class White [place] 0 W001 - IgE Ragweed, Short <0.10 Class Common Ragweed 0 W006 - IgE Mugwort <0.10 Class Mugwort 0 D001 IgE D pteronyssinus <0.10 Class Derm. pterony 0 G002 IgE B[place] Grass <0.10 Class B[place] Grass 0 M001 IgE Penicillium chrysogen <0.10 Class Penicillium crysogenum 0 T003 IgE Common Silver Birch <0.10 Class Birch 0 T008 IgE Elm, Trinidadian <0.10 Class Elm 0 T001 IgE Maple/[place] <0.10 Class Maple [place] 0 W014 IgE Pigweed, Common <0.10 Class Rough Pigweed 0 W018 IgE Sheep Adrian <0.10 Class Sheep Adrian 0 Allergen Comment See Below Specific Level of Allergen IGE Class kU/L Specific IGE Antibody ----- --------- 0 <0.10 Absent/Undetectable 0/1 0.10-0.34 Very Low Level 1 0.35-0.69 Low Level 2 0.70-3.49 Moderate Level 3 3.50-17.4 High Level 4 17.5-49.9 Very High Level 5 50-100 Very High Level 6 >100 Very High Level The clinical relevance of allergen results of 0.10-0.34 kU/L are undetermined and intended for specialist use. Allergens denoted with a include results using one or more analyte specific reagents. In those cases, the test was developed and its analytical performance characteristics have been determined by [facility]. It has not been cleared or approved by the U.S. Food and Drug Administration. This assay has been validated pursuant to the CLIA regulations and is used for clinical purposes. THIS TEST WAS PERFORMED AT: [facility] [address] [place] [phone] DEREK JOYCE MD Reason For Referral Reason Evaluate and Treat Dysphagia Food sticks mid esophagus Diagnosis 1 Dysphagia (R13.10) Referral Organization Sanket Saleem III, MD Referring Provider First Name Sanket Referring Provider Last Name Harper Referring Provider Speciality Internal M edicine Referred Provider Sanekt Hankins Referred Provider Specialty Gastroentero logy General Notes D, [place] 11/02/2024 09:29:58 AM > Referral and progress [...] Provider SHAYNA WORTHY Referred Provider Specialty Pulmonary Di seases General Notes [place] Matt 01/25/2025 12:20:27 PM > Referral, Progress note and PFT test faxed, Marta Zapata CMA 02/11/2025 02:10:53 PM >[place] pulmonary dept called stated they needed copy [...] TABLET BY TO TH EVERY DAY Active Fluconazole 100 MG 1 tablet Orally weekly 06/05/20 24 Active Lisinopril 10 MG 1 tablet Orally Once a day 04/03/2024 Active amLODIPine Besylate 2.5 MG TAKE 1 TABLET BY MOUTH DAILY Oral Active Tylenol 325 MG 2 tablets as needed Orally every 6 hrs Active Ketoconazole 2 % 1 application Underwriting Internship ally Once a day 04/09/2025 Active Breo Ellipta 200-25 MCG/ACT INHALE 1 PUF F BY MOUTH DAILY Inhalation Active Atenolol 50 MG 1 tablet Orally twic e a day for 90 days Active Immunizations Vaccine Route Administration Date Status Comme nts Tdap Unknown 01/19/2013 Administered Social History Tobacco Use: Social History Observation [...] Problem Status W/U Status Risk Notes Problem 0605706 Former smoker (Z87.891) Active confirmed He is highly motivated not to smoke. We discussed a plan to prevent relapse in times of stress or illness. Problem 917911395 Obesity (E66.9) Active confirmed He has lost 6 pounds. . We have reviewed his weight loss plan. We discussed diet and nutrition. We made a plan to lose weight at a rate of one half of a pound per week. Problem 485299888 Asthma (J45.909) Active confirmed He has had no exacerbations of his asthma since his last visit. No change in his therapy was made. Problem 029575817 Right sided abdominal pain (R10.9) Active confirmed The examination today did not elicit this symptom.His discomfort is intermittent but still present. Will be observed carefully. Problem Hypertension (69560411) Hypertension (I10) Active confirmed His blood pressure has been elevated at home recently. In the office today was consistently 148/80. This was lying down. I have added atenolol 50 mg once a day to his regimen. Problem 62814821 Splenomegaly (R16.1) Active confirmed I did not feel the tip of the spleen today on deep inspiration. No left upper quadrant abdominal pain has been present. He will be observed. Problem 354760794 Pulmonary nodules (R91.8) Active confirmed A CT [...] him and suggest for a consultation. Problem 21169284 Pityriasis versicolor (B36.0) Active confirmed Her rash was minimal today and will be observed. Problem Benign prostatic hypertrophy without outflow obstruction (341204233) BPH (benign prostatic hypertrophy) (N40.0) Active confirmed He has been rising from sleep once a night sometimes to urinate. We discussed lifestyle modifications it would reduce this. Problem 229460334 Degenerative joint disease (DJD) of lumbar spine (M47.816) Active confirmed His back cat n is minimal today and he is working full-time. 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 He will no longer take the dexamethasone. The pain is improved and should continue to do so. He will be followed. Problem Dysphagia (84594130) Dysphagia (R13.10) Active confirmed He will have [...] will go to the emergency room in [facility]. Problem 25855295 Degenerative disc disease, thoracic (M51.34) Active confirmed The discomfort is much better. He is no longer taking muscle relaxants dexamethasone. She will avoid heavy lifting and undue exertion. Problem 0280972 Migraine with aura (G43.109) Active confirmed No migraines have occurred since his last visit. No change in his regimen was made today. Problem 644675585 Poor glycemic control (R73.09) Active confirmed The current glucose is only slightly elevated. His weight is up and we have discussed dietary control of hyperglycemia at length today. 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 No change in his regimen as needed. Problem 46253120 Dyspnea on exertion (R06.09) Active confirmed The pulmonary function tests are normal. Comprehensive blood work was ordered and will be reviewed. Problem Daytime somnolence (408418591139) Daytime somnolence (R40.0) Active confirmed I have ordered a sleep study to be done. Problem Obstructive sleep apnea syndrome (86797332) LAUREEN (obstructive sleep apnea) (G47.33) Active confirmed This is going to be reevaluated. Problem 18636123 Impacted cerumen of left ear (H61.22) Active confirmed I did not see any liquid discharge. There was a soft brown impaction which was removed with warm water irrigation. After the removal of the wax, inspection of the tympanic membrane was normal. Problem 07291542 Odynophagia (R13.10) Active confirmed I ordered a barium swallow. We have discussed a GI referral or an ENT referral. Vital Signs Heart Rate 74 /min 04/26/2025 Temperature 98.4 degrees Fahrenheit 04/26/2025 Respiratory Rate 15 /min 04/26/2025 Oximetry 96 % 04/26/2025 Blood pressure diastolic 78 mm Hg 04/26/2025 Height 63 in in 04/26/2025 Blood pressure systolic 138 mm Hg 04/26/2025 Weight 204 lbs 04/26/2025 BMI 36.13 kg/m2 04/26/2025 Encounters Encounter Location Date Provider Diagnosis Sanket Saleem III, MD [address] [place] [address] [place] [address] 06/05/2024 Sanket Saleem Pityriasis versicolo r B36.0 ; Hypertension I10 ; Former smoker Z87.891 ; Obesity E66.9 and Right sided abdominal pain R10.9 Sanket Saleem III, MD [address] [place] [address] [place] [address] 10/29/2024 Sanket Saleem Pityriasis versicolo r B36.0 ; Dysphagia R13.10 ; Migraine with aura G43.109 ; Poor glycemic control R73.09 ; Splenomegaly R16.1 ; Obesity E66.9 ; Former smoker Z87.891 ; Asthma J45.909 and Right sided abdominal pain R10.9 Sanket Saleem III, MD [address] [place] [address] [place] [address] 01/13/2025 Sanket Saleem Hypertension I10 ; Odynophagia R13.10 ; Pityriasis versicolor B36.0 ; Migraine with aura G43.109 ; Splenomegaly R16.1 ; Obesity E66.9 ; Former smoker Z87.891 ; Right sided abdominal pain R10.9 ; Pulmonary nodules R91.8 and Cervical radiculopathy M54.12 Sanket Saleem III, MD [address] [place] [address] [place] [address] 01/29/2025 Sanket Saleem Pityriasis versicolo r B36.0 ; Dyspnea on exertion R06.09 ; Former smoker Z87.891 ; Obesity E66.9 ; Splenomegaly R16.1 ; Hypertension I10 and Right sided abdominal pain R10.9 Sanket Saleem III, MD [address] [place] [address] [place] [address] 03/30/2025 Sanket Saleem Pityriasis versicolo r B36.0 ; Hypertension I10 ; Migraine with aura G43.109 ; Intervertebral disc disorder of lumbar region with myelopathy M51.06 ; Splenomegaly R16.1 ; Former smoker Z87.891 ; Cervical radiculopathy M54.12 and Obesity E66.9 Sanket Saleem III, MD [address] [place] [address] [place] [address] 04/09/2025 Sanket Saleem Pityriasis versicolo r B36.0 ; Hypertension I10 ; Obesity E66.9 ; Former smoker Z87.891 ; Migraine with aura G43.109 ; Poor glycemic control R73.09 ; Intervertebral disc disorder of lumbar region with myelopathy M51.06 ; Splenomegaly R16.1 ; Asthma J45.909 and Cervical radiculopathy M54.12 Sanket Saleem III, MD [address] [place] [address] [place] [address] 04/26/2025 Sanket Saleem Pityriasis versicolo r B36.0 ; Dyspnea on exertion R06.09 ; Former smoker Z87.891 ; Obesity E66.9 and LAUREEN (obstructive sleep apnea) G47.33 Sanket Saleem III, MD [address] [place] [address] [place] [address] 01/06/2025 Sanket Saleem III, MD [address] [place] [address] [place] [address] 02/03/2025 Sanket Saleem Atypical chest pain R07.89 Sanket Saleem III, MD [address] [place] [address] [place] [address] 03/25/2025 Sanket Saleem III, MD [address] [place] [address] [place] [address] 05/07/2025 Sanket Ritter versicolo r B36.0 Assessments Encounter Date Diagnosis (ICD Code) Assessment Notes Treat ment Notes Treatment Clinical Notes 06/05/2024 Hypertension (ICD-10 - I10) He has [...] will go to the emergency room in [facility]. 01/13/2025 Hypertension (ICD-10 - I10) Pressures stable. [...] work was ordered and will be reviewed. 03/30/2025 Hypertension (ICD-10 - I10) His blood pressure has been elevated at home recently. In the office today was consistently 148/88. This was lying down. I have added atenolol 50 mg once a day to his regimen. 03/30/2025 Pityriasis versicolor (ICD-10 - B36.0) His skin is much improved today and no change in his regimen was needed. He is no longer taking medication for this. There was very little rash present At his request I refilled his triamcinolone. 04/09/2025 Hypertension (ICD-10 - I10) His blood pressure has been elevated at home recently. In the office today was consistently 148/80. This was lying down. I have added atenolol 50 mg once a day to his regimen. 04/09/2025 Pityriasis versicolor (ICD-10 - B36.0) Her rash was minimal today and will be observed. 04/26/2025 Pityriasis versicolor (ICD-10 - B36.0) Her rash was minimal today and will be observed. 04/26/2025 Dyspnea on exertion (ICD-10 - R06.09) The pulmonary function tests are normal. Comprehensive blood work was ordered and will be reviewed. 02/03/2025 Atypical chest pain (ICD-10 - R07.89) 05/07/2025 Pityriasis versicolor (ICD-10 - B36.0) Her rash was minimal today and will be observed. 06/05/2024 Former smoker (ICD-10 - Z87.891) He [...] in times of stress or illness. 03/30/2025 Migraine with aura (ICD-10 - G43.109) No migraines have occurred since his last visit. No change in his regimen was made today. 04/09/2025 Obesity (ICD-10 - E66.9) He has lost 6 pounds. . We have reviewed his weight loss plan. We discussed diet and nutrition. We made a plan to lose weight at a rate of one half of a pound per week. 04/26/2025 Former smoker (ICD-10 - Z87.891) He is highly motivated not to smoke. We discussed a plan to prevent relapse in times of stress or illness. 06/05/2024 Obesity (ICD-10 - E66.9) He has [...] one half of a pound per week. 03/30/2025 Intervertebral disc disorder of lumbar region with myelopathy (ICD-10 - M51.06) The patient is occasional and mild at this time. No change in his regimen as needed. 04/09/2025 Former smoker (ICD-10 - Z87.891) He is [...] one half of a pound per week. 06/05/2024 Right sided abdominal pain (ICD-10 - [...] been present. He will be observed. 03/30/2025 Splenomegaly (ICD-10 - R16.1) I did not feel the tip of the spleen today on deep inspiration. No left upper quadrant abdominal pain has been present. He will be observed. 04/09/2025 Migraine with aura (ICD-10 - G43.109) No migraines have occurred since his last visit. No change in his regimen was made today. 04/26/2025 LAUREEN (obstructive sleep apnea) (ICD-10 - G47.33) This is going to be reevaluated. 10/29/2024 Obesity (ICD-10 - E66.9) He has [...] change in his regimen was needed today. 03/30/2025 Former smoker (ICD-10 - Z87.891) He is highly motivated not to smoke. We discussed a plan to prevent relapse in times of stress or illness. 04/09/2025 Poor glycemic control (ICD-10 - R73.09) The current glucose is only slightly elevated. His weight is up and we have discussed dietary control of hyperglycemia at length today. 10/29/2024 Former smoker (ICD-10 - Z87.891) He [...] but still present. Will be observed carefully. 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 He will no longer take the dexamethasone. The pain is improved and should continue to do so. He will be followed. 04/09/2025 Intervertebral disc disorder of lumbar region with myelopathy (ICD-10 - M51.06) The patient is occasional and mild at this time. No change in his regimen as needed. 10/29/2024 Asthma (ICD-10 - J45.909) He has had no exacerbations of his asthma since his last visit. No change in his therapy was made. 01/13/2025 Right sided abdominal pain (ICD-10 - R10.9) The examination today did not elicit this symptom.His discomfort is intermittent but still present. Will be observed carefully. 03/30/2025 Obesity (ICD-10 - E66.9) He has lost 3 pounds. . We have reviewed his weight loss plan. We discussed diet and nutrition. We made a plan to lose weight at a rate of one half of a pound per week. 04/09/2025 Splenomegaly (ICD-10 - R16.1) I did not feel the tip of the spleen today on deep inspiration. No left upper quadrant abdominal pain has been present. He will be observed. 10/29/2024 Right sided abdominal pain (ICD-10 - [...] with him and suggest for a consultation. 04/09/2025 Asthma (ICD-10 - J45.909) He has had no exacerbations of his asthma since his last visit. No change in his therapy was made. 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 He will no longer take the dexamethasone. The pain is improved and should continue to do so. He will be followed. 04/09/2025 Cervical radiculopathy (ICD-10 - M54.12) He [...] RANDOM (COMPREHENSIVE METABOLIC ) 12/14/2020 LIPID PANEL 10/20/2019 LIPID PANEL 04/21/2019 LIPID PANEL 04/01/2023 LIPID PANEL 12/14/2020 PSA, TOTAL 10/20/2019 PSA, TOTAL 01/29/2025 PSA, [...] AUTO DIFF 04/03/2024 SARS COV2 IGG 09/29/2020 D Dimer 01/29/2025 ECG 12 lead EKG 01/29/2025 Next Appt Details Provider Name:Sanket Saleem , 06/23/2025 04:15:00 PM, [address] [facility] [address], [place], [phone], Provider Name:Sanket Saleem , 04/12/2026 04:00:00 PM, [address] [place] [address] [address], [place], [address], Insurance Providers Payer Name Payer Address Payer Phone Subscriber Number Group Number Insured Name Patient Relationship to Insured Coverage Start Date Coverage End Date [facility] [address] [facility] [address] [facility] [place] [phone] [id number] Vicente Lindsay Self - patient is the [...]
--- NOTE | 2025-06-04 10:43 | PFT_ITS ---
Methacholine challenge: Normal methacholine challenge with no significant decrease in FEV1. Unable to perform full pulmonary function test secondary to equipment malfunction. Impression: Negative methacholine challenge test. MTDD
[2025-06-04 10:46] VITALS: PULSE 78
== END 2025-06-04 08:55 | disposition home or self-care (01) ==
LOC: HO.RESP 08:54
PROVIDERS: PCP Internal Medicine Medical Oncology; Visit Provider Internal Medicine Pulmonary Disease
DX: R06.00 Dyspnea, unspecified (principal); Z91.09 Other allergy status, other than to drugs and biological substances
CPT/HCPCS: 94070; 94640

== ENCOUNTER 2025-06-04 10:39 | Outpatient (AMB) | payer OTHER, SELFPAY ==
[2025-06-04 10:41] VITALS: BP 150/80; PULSE 91; O2SAT 95; BMI 34.8
--- NOTE | 2025-06-04 10:41 | MHC.OFFVIS ---
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 Required: No Allergies naproxen Allergy (Intermediate, Verified 06/04/25 10:43) SOB, oral lesions clonazepam (CLONAZEPAM) Allergy (Unknown, Verified 06/04/25 10:43) UNKNOWN duloxetine (From CYMBALTA) Allergy (Unknown, Verified 06/04/25 10:43) UNKNOWN gabapentin (From NEURONTIN) Allergy (Unknown, Verified 06/04/25 10:43) UNKNOWN ibuprofen (IBUPROFEN) Allergy (Unknown, Verified 06/04/25 10:43) UNKNOWN, SOB, oral lesions indomethacin (INDOMETHACIN) Allergy (Unknown, Verified 06/04/25 10:43) NAUSEA/VOMITING, chest pain shellfish derived (SHELLFISH DERIVED) Allergy (Unknown, Verified 06/04/25 10:43) UNKNOWN amlodipine Allergy (Verified 06/04/25 10:43) Unknown lisinopril Allergy (Verified 06/04/25 10:43) Unknown metoprolol Allergy (Verified 06/04/25 10:43) Unknown morphine Allergy (Verified 06/04/25 10:43) Chest Pain shrimp Allergy (Verified 06/04/25 10:43) Unknown HPI HPI Dyspnea/Same Day Methacholine Challenge: Details: 54-year-old gentleman, nonsmoker, previously referred for obstructive sleep apnea, but did not want to continue testing, then returned complaining of intermittent episodes of dyspnea associated with exposure to environmental allergies, exertion, or while plain trombone. Patient stated he had a negative cardiac workup. After the last office visit essentially negative immunologic workup and his methacholine challenge was negative for bronchospasm. He was tried on Breo with minimal improvement in his symptoms, but significant side effects including migraines and paresthesias. 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 Review of Systems Card Reports dyspnea on exertion Resp Denies cough, Denies excessive phlegm production, Reports dyspnea on exertion and Denies wheezing Aller/Immun Denies wheezing Physical Exam Vital Signs: Last Vital Signs Pulse 91 06/04/25 10:41 BP 150/80 H 06/04/25 10:41 Pulse Ox 95 06/04/25 10:41 Oxygen Delivery Method Room Air 06/04/25 10:41 BMI result Body Mass Index 34.8 Const General: no acute distress and alert Nutritional Appearance: not obese Orientation/consciousness: Other orientation findings ( oriented) HEENT Head: Yes atraumatic Eyes General: appearance normal, both eyes and all related structures Sclerae: sclerae normal EOM: EOMs intact bilaterally Neck Neck: Yes supple Lymphatic: no lymphadenopathy noted Resp Effort & Inspection: normal respiratory effort and no use of accessory muscles Auscultation: clear to auscultation bilaterally Cardio Rate: regular rate Rhythm: regular rhythm Heart sounds: no gallops, no murmurs and no rubs Skin General skin exam: other ( warm) Extrem General: No clubbing, No cyanosis and No edema Assessment & Plan Assessment & Plan (1) Dyspnea: Code(s): R06.00 - Dyspnea, unspecified Category: Medical Plan: Negative methacholine challenge test. Unable to tolerate Breo and also minimal symptomatic improvement while on it. Will obtain cardiopulmonary exercise test and will refer for 2nd opinion. (2) Environmental allergies: Code(s): Z91.09 - Other allergy status, other than to drugs and biological substances Category: Medical Plan: Results of RAST panel, CBC with differential and IgE level reviewed and are essentially normal. Orders: Orders CA cardiopulmonary stress test Today R06.00 - Dyspnea, unspecified Referrals Pulmonology Referral R06.00 - Dyspnea, unspecified Coding Level of Care Code Est Pt Level 4 (56381) Diagnoses Dyspnea R06.00 Environmental allergies Z91.09
== END 2025-06-04 11:02 | disposition home or self-care (01) ==
LOC: HO.HPS 10:39
PROVIDERS: PCP Internal Medicine Medical Oncology; Visit Provider Internal Medicine Pulmonary Disease
DX: R06.00 Dyspnea, unspecified (principal); Z91.09 Other allergy status, other than to drugs and biological substances
CPT/HCPCS: 99214